=== PATIENT | female | born 1975 | race Caucasian/White ===

== ENCOUNTER 2021-10-18 11:07 | Inpatient (IN) | payer BC, SELFPAY ==
[2021-10-18] VITALS (41 sets, daily range): BP systolic 130–196; BP diastolic 66–117; PULSE 85–118; RESP 12–35; TEMP 36.6–37.1; O2SAT 94–100
--- NOTE | 2021-10-18 11:09 | ED_ITS ---
HPI - General Adult General: Chief complaint: Nausea/Vomiting/Diarrhea Stated complaint: HYPERGLYCEMIA Time Seen by Provider: 10/18/21 11:08 History of Present Illness: Ms. Higuera is a 46-year-old lady without significant past medical history who presents to the emergency department due to nausea and vomiting. She endorses generalized malaise starting approximately 1 week ago and about 5 days ago began having recurrent episodes of nausea and vomiting. Initially emesis was normal in appearance however is now become more just stomach acid and last night she did have small amounts of blood. Additionally she notes a few episodes of loose stools. Mild generalized abdominal discomfort. She has generalized weakness, subjective fevers, chills. Overall course of symptoms has worsened. Intensity is moderate to severe with generalized weakness. No other specific changes in health, exacerbating, or alleviating factors identified. Onset (ago): day(s) Severity: moderate Quality: burning and aching Pain Consistency: constant Exacerbating factors: eating Associated symptoms: Reports decreased appetite, fevers/chills, nausea, vomiting and weakness Review of Systems General: Reports: 10 or more systems reviewed and unremarkable except in HPI and below GI: Reports: nausea and vomiting [facility] ED PFSH: Medical History No significant past medical history Surgical History No significant past surgical history Family History (Updated 10/18/21 @ 14:00 by Filipe Delgado MD) Father Diabetes Mother Diabetes Social History Smoking and tobacco status: never smoked Physical Exam Const: COMMON NORMALS: alert GENERAL APPEARANCE: cooperative and well developed HENMT: COMMON NORMALS: normocephalic and atraumatic HEAD & SCALP: normocephalic and atraumatic OTHER: Dry mucous membranes Eye: COMMON NORMALS: conjunctivae normal CONJUNCTIVA: Yes conjunctivae normal SCLERA: sclerae normal Neck/C-Spine: COMMON NORMALS: supple GENERAL: Yes trachea midline Resp: COMMON NORMALS: normal respiratory effort and clear to auscultation bilaterally EFFORT & INSPECTION: Yes able to speak in complete sentences AUSCULTATION: clear to auscultation bilaterally Cardio: COMMON NORMALS: regular rhythm RATE: tachycardic RHYTHM: regular rhythm GI: COMMON NORMALS: Soft to palpation PALPATION: Yes Soft to palpation, Yes Tenderness to palpation present (GI), No Guarding due to palpation present (GI) and No Rigid due to palpation PERCUSSION: normal to percussion Extremity: GENERAL: Yes normal exam except as noted and No edema Neuro: COMMON NORMALS: moves all extremities SENSORIUM/ORIENTATION: Yes alert and No Orientation impaired Psych: COMMON NORMALS: mental status grossly normal and Normal thought process present THOUGHT PROCESS: Normal thought process present Course ED course: - Patient was seen and evaluated by me at bedside - Patient placed on cardiac monitors, IV access obtained - Initial evaluation notable for exam as above, somewhat ill-appearing - Labs and xrays personally interpreted by me. EKGs showing sinus tachycardia with nonspecific ST segment abnormalities. - Fluids and antiemetic given - Labs notable for leukocytosis, normal hemoglobin. Metabolic panel consistent with DKA. Additional fluids, potassium, and insulin drip ordered. - Imaging notable for no lobar consolidation or pneumothorax on chest x-ray. No acute inflammatory or obstructive pathology identified on CT abdomen pelvis. - Upon serial reexamination after treatment the patient was mildly improved - Based on patient history, evaluation, and testing as interpreted the most likely cause of the patient's condition is new onset DKA with evidence of dehydration with nausea and vomiting - The results of ED evaluation were discussed with the patient including plan for admission due to requirement for level of care not available if discharged to prevent significant worsening/deterioration. - Admitting service was contacted and Dr Delgado with the hospitalist service agreed to admit the patient - Patient was admitted without further deterioration or significant events. Note: Click bubbles or prepopulated vasquez in note writing are used for assistance with data collection and billing and are inherently more limited than narrative and other text portions of this note. Please use narrative for additional clinical history and defer to narrative/free test for any case of contradictory information. If information appears in only free text or click bubble it should be considered present or absent as reported. Please contact note telegraphic typewriter repairer for clarifications of clinical information or contradictory information. MDM is a brief summary, contradictory or erroneous seeming information should be clarified and full note should be reviewed. Vital Signs: Vital signs: Vital Signs Temperature 98.6 F 10/21/21 12:34 Pulse Rate 80 10/21/21 12:34 Respiratory Rate 16 10/21/21 12:34 Blood Pressure 129/80 10/21/21 12:34 Pulse Oximetry 97 10/21/21 12:34 MDM - General Adult Medical Decision Making 46-year-old lady nausea and vomiting found to have new set onset DKA. Admitted on insulin drip for further management. Medical Records I reviewed the patient's medical records. Lab Data I reviewed the patient's lab results. : 10/21/21 04:34 10/21/21 04:34 Radiology Impressions Abdomen/Pelvis CT 10/18/21 12:10 IMPRESSION: 1. No acute findings. 2. Sigmoid colon diverticulosis 3. A few small calcified gallstones Chest X-Ray 10/18/21 12:10 IMPRESSION: No acute findings. Abdomen Ultrasound 10/18/21 14:51 IMPRESSION: 1. Mild hepatomegaly. 2. Small sludge balls in the gallbladder 3. Otherwise No acute findings. Laboratory Results WBC 22.0 10^3/uL (4.0-10.0) H 10/18/21 11:28 RBC 5.00 10^6/uL (4.1-5.3) 10/18/21 11:28 Hgb 14.2 g/dL (11.5-15.3) 10/18/21 11:28 Hct 41.4 % (37.0-47.0) 10/18/21 11:28 MCV 82.8 fl (81-99) 10/18/21 11:28 MCH 28.4 pg (28.0-34.0) 10/18/21 11:28 MCHC 34.3 g/dL (30.0-36.0) 10/18/21 11:28 RDW 12.3 % (12.1-15.1) 10/18/21 11:28 Plt Count 421 10^3/cmm (130-400) H 10/18/21 11:28 MPV 11.2 fL (7.4-10.4) H 10/18/21 11:28 Neut % (Auto) 84.0 % 10/18/21 11:28 Lymph % (Auto) 9.2 % 10/18/21 11:28 Stan[place] % (Auto) 5.0 % 10/18/21 11:28 Eos % (Auto) 0.0 % 10/18/21 11:28 Baso % (Auto) 0.4 % 10/18/21 11:28 Neut # (Auto) 18.48 10^3/uL (1.8-7.7) H 10/18/21 11:28 Lymph # (Auto) 2.0 10^3/uL (0.8-4.8) 10/18/21 11:28 [place] # (Auto) 1.1 10^3/uL (0.2-0.9) H 10/18/21 11:28 Eos # (Auto) 0.0 10^3/uL (0.0-0.8) 10/18/21 11:28 Baso # (Auto) 0.1 10^3/uL (0.0-0.1) 10/18/21 11:28 Nucleated RBC % (auto) 0 % 10/18/21 11:28 Nucleated RBCs # 0.0 /100WBC 10/18/21 11:28 Specimen Type Arterial 10/18/21 12:14 Sample Site Brachial, left 10/18/21 12:14 ABG pH 7.30 (7.35-7.45) L 10/18/21 12:14 ABG pCO2 22.9 mmHg (35-45) L 10/18/21 12:14 ABG pO2 94.4 mmHg (80.0-100.0) 10/18/21 12:14 ABG HCO3 11.3 mmol/L (22-26) L 10/18/21 12:14 ABG Base Excess -13.0 mmol/L (-2.0-2.0) L 10/18/21 12:14 Jose Test Pos 10/18/21 12:14 Hematocrit 41.9 % (37-47) 10/18/21 12:14 O2 Delivery Device Room air 10/18/21 12:14 FiO2 21.0 % 10/18/21 12:14 Punch Press Setter ID Cak 10/18/21 12:14 Sodium 130 mmol/L (136-145) L 10/18/21 11:28 Potassium 3.7 mmol/L (3.5-5.1) 10/18/21 11:28 Chloride 90 mmol/L (98-107) L 10/18/21 11:28 Carbon Dioxide 12 mmol/L (22-29) L 10/18/21 11:28 Anion Gap 31.7 (5-19) H 10/18/21 11:28 BUN 23 mg/dL (6-20) H 10/18/21 11:28 Creatinine 0.7 mg/dL (0.5-0.9) 10/18/21 11:28 GFR Calculation 90.9 mL/min (90-130) 10/18/21 11:28 Glucose 482 mg/dL (65-115) H 10/18/21 11:28 POC Glucose 496 mg/dL (70-110) H 10/18/21 11:32 Calculated Osmolality 295 mOsm/kg (285-295) 10/18/21 11:28 Lactate 2.1 mmol/L (0.5-2.2) 10/18/21 11:28 Calcium 9.5 mg/dL (8.5-10.5) 10/18/21 11:28 Magnesium 1.8 mg/dL (1.7-2.3) 10/18/21 11:28 Total Bilirubin 0.3 mg/dL (0.15-1.2) 10/18/21 11:28 AST 16 U/L (0-32) 10/18/21 11:28 ALT 22 U/L (0-33) 10/18/21 11:28 Alkaline Phosphatase 136 IU/L (35-105) H 10/18/21 11:28 Total Protein 7.9 g/dL (6.6-8.7) 10/18/21 11:28 Albumin 3.5 g/dL (3.5-5.2) 10/18/21 11:28 Globulin 4.4 g/dL (1.3-4.6) 10/18/21 11:28 Lipase 43 U/L (13-60) 10/18/21 11:28 HCG, Qual Negative (Negative) 10/18/21 13:00 Urine Color Yellow (Yellow) 10/18/21 13:00 Urine Appearance Sl hazy (CLEAR) 10/18/21 13:00 Urine pH 5 (5-7) 10/18/21 13:00 Ur Specific [place] 1.020 (1.005-1.030) 10/18/21 13:00 Urine Protein Neg (Negative) 10/18/21 13:00 Urine Glucose (UA) 4+ (Normal) H 10/18/21 13:00 Urine Ketones 3+ (Negative) H 10/18/21 13:00 Urine Blood 3+ (Negative) H 10/18/21 13:00 Urine Nitrate Negative (Negative) 10/18/21 13:00 Urine Bilirubin Neg (Negative) 10/18/21 13:00 Urine Urobilinogen Norm mg/dL (Negative) 10/18/21 13:00 Ur Leukocyte Esterase Negative (Negative) 10/18/21 13:00 Urine RBC 0-4 /hpf (0-2) H 10/18/21 13:00 Urine WBC 10-15 /hpf (0-5) H 10/18/21 13:00 Ur Squamous Epith Cells 0-4 /hpf (0-5) H 10/18/21 13:00 Amorphous Sediment Not Reportable 10/18/21 13:00 Urine Bacteria 2+ /hpf (NONE) H 10/18/21 13:00 Serum Ketones Positive (Negative) H 10/18/21 11:28 Critical Care Time Critical Care Time: Critical Care Time: Yes Total Critical Care Time: 35 Attestation: Due to a high probability of clinically significant, possibly life threatening deterioration, the patient required my highest level of attention and preparedness to intervene emergently and I personally spent this critical care time directly and personally managing the patient. This critical care time included obtaining a history; examining the patient; pulse oximetry; ordering and review of laboratory and imaging studies; arranging urgent treatment with development of a management plan; evaluation of patient's response to treatment; frequent reassessment; and, discussions with other providers as applicable. It was exclusive of separately billable procedures. Primary system involved is endocrine Discharge Plan Discharge Patient Disposition: Admitted As Inpatient Admit Provider: Filipe Delgado Clinical Impression: Diabetes mellitus, new onset, DKA (diabetic ketoacidosis) Condition: Stable Discharge Diet: Diabetic Discharge Activity: Resume usual activity Coding Level of Care Code ED Podiatrist for [facility] Fwd Exam Comprehensive
[2021-10-18 11:36] LABS: Glucose Point of Care 496 mg/dL (70-110)
[2021-10-18 11:40] LABS: Basophils # 0.1 10^3/uL (0.0-0.1); Basophils % 0.4 %; Hematocrit 41.4 % (37.0-47.0); Hemoglobin 14.2 g/dL (11.5-15.3); Lymphocytes % 9.2 %; Mean Corpuscular HGB Conc 34.3 g/dL (30.0-36.0); Mean Corpuscular Hemoglobin 28.4 pg (28.0-34.0); Mean Corpuscular Volume 82.8 fl (81-99); Mean Platelet Volume 11.2 fL (7.4-10.4); Monocytes # 1.1 10^3/uL (0.2-0.9); Neutrophils # 18.48 10^3/uL (1.8-7.7); Nucleated Red Blood Cells % 0 %; Platelet Count 421 10^3/cmm (130-400); Red Cell Distribution Width 12.3 % (12.1-15.1)
[2021-10-18 11:52] LABS: Ketone (Acetest) Serum Positive (Negative)
[2021-10-18 11:54] LABS: Lactate (Lactic Acid level) 2.1 mmol/L (0.5-2.2)
[2021-10-18] MEDS: sodium chloride 0.9% 1,000 ML 999 ML IV (11:56)
[2021-10-18 11:59] LABS: Alanine Aminotransferase 22 U/L (0-33); Albumin Level 3.5 g/dL (3.5-5.2); Alkaline Phosphatase 136 IU/L (35-105); Anion Gap 31.7 (5-19); Aspartate Amino Transferase 16 U/L (0-32); Blood Urea Nitrogen 23 mg/dL (6-20); Calcium 9.5 mg/dL (8.5-10.5); Carbon Dioxide 12 mmol/L (22-29); Chloride 90 mmol/L (98-107); Globulin 4.4 g/dL (1.3-4.6); Glomerular Filtration Rate 90.9 mL/min (90-130); Glucose 482 mg/dL (65-115); Lipase 43 U/L (13-60); Osmolality Calculated 295 mOsm/kg (285-295); Potassium 3.7 mmol/L (3.5-5.1); Sodium 130 mmol/L (136-145); Total Bilirubin 0.3 mg/dL (0.15-1.2); Total Protein 7.9 g/dL (6.6-8.7)
--- NOTE | 2021-10-18 12:10 | XRR_ITS ---
PROCEDURE INFORMATION: Exam: XR Chest Exam date and time: 10/18/2021 12:25 PM Age: 46 years old Clinical indication: Pain; Chest pressure; Additional info: Chest discomfort TECHNIQUE: Imaging protocol: Radiologic exam of the chest. Views: 1 view. COMPARISON: No relevant prior studies available. FINDINGS: Lungs: Unremarkable. No consolidation. Pleural spaces: Unremarkable. No pleural effusion. No pneumothorax. Heart/Mediastinum: Unremarkable. No cardiomegaly. Bones/joints: Unremarkable. XR/XR chest 1V portable [id number] IMPRESSION: No acute findings.
--- NOTE | 2021-10-18 12:10 | CTR_ITS ---
PROCEDURE INFORMATION: Exam: CT Abdomen And Pelvis Without Contrast Exam date and time: 10/18/2021 12:36 PM Age: 46 years old Clinical indication: Nausea and vomiting; Abdominal pain; Generalized; Additional info: N/v, abd pain TECHNIQUE: Imaging protocol: Computed tomography of the abdomen and pelvis without contrast. Radiation optimization: All CT scans at this facility use at least one of these dose optimization techniques: automated exposure control; mA and/or kV adjustment per patient size (includes targeted exams where dose is matched to clinical indication); or iterative reconstruction. COMPARISON: CR (CHEST, ) 10/18/2021 12:25 PM RADIATION DOSE METRICS: Total DLP (mGy-cm): 1832.65 FINDINGS: Liver: Normal. No mass. Gallbladder and bile ducts: Several small calcified stones. No ductal dilation. Pancreas: Normal. No ductal dilation. Spleen: Normal. No splenomegaly. Adrenal glands: Normal. No mass. Kidneys and ureters: Normal. No hydronephrosis. Stomach and bowel: There is scattered sigmoid colon diverticulosis without diverticulitis No obstruction. No mucosal thickening. Appendix: No evidence of appendicitis. Intraperitoneal space: Unremarkable. No free air. No significant fluid collection. Vasculature: Unremarkable. No abdominal aortic aneurysm. Lymph nodes: Unremarkable. No enlarged lymph nodes. Urinary bladder: Unremarkable as visualized. Reproductive: Unremarkable as visualized. Bones/joints: Unremarkable. No acute fracture. Soft tissues: Unremarkable. CT/CT abdomen pelvis con [id number] IMPRESSION: 1. No acute findings. 2. Sigmoid colon diverticulosis 3. A few small calcified gallstones
[2021-10-18 12:25] LABS: ABG PCO2 22.9 mmHg (35-45); Arterial Blood Gas Hematocrit 41.9 % (37-47); Blood Gas Allen Test Pos; Blood Gas Operator Identificat CAK; Blood Gas Sample Site Brachial, left; Blood Gas Sample Type Arterial; HCO3 ABG 11.3 mmol/L (22-26); Oxygen Device ROOM AIR; PO2 ABG 94.4 mmHg (80.0-100.0)
[2021-10-18] MEDS: potassium chloride oral liq 20 mEq/15 mL UDC 40 MEQ PO (12:57)
[2021-10-18 13:17] LABS: HCG Qualitative Urine. Negative (Negative)
[2021-10-18 13:27] LABS: Bilirubin Urine Neg (Negative); Blood Urine 3+ (Negative); Glucose Urine UA 4+ (Normal); Ketones Urine 3+ (Negative); Nitrate Urine Negative (Negative); Protein Urine Neg (Negative); Urine Appearance SL Hazy (CLEAR); Urine Color Yellow (Yellow); pH Urine 5 (5-7)
[2021-10-18 13:28] LABS: Add Urine Culture? Yes; Add Urine Microscopic? YES; Bacteria Urine 2+ /hpf; Leukocyte Esterase Urine Negative (Negative); RBC Urine 0-4 /hpf (0-2); Squamous Epithelial Cell Urine 0-4 /hpf (0-5); Urobilinogen Urine Norm (Negative)
[2021-10-18 13:42] LABS: Magnesium 1.8 mg/dL (1.7-2.3)
--- NOTE | 2021-10-18 13:56 | PM.HP ---
Providers/Chief Complaint Chief Complaint: HYPERGLYCEMIA History of Present Illness Althea Higuera is a 46 year old female with no significant past medical history, has received both COVID vaccines, who presents [facility] due to fatigue, malaise, nausea, vomiting, abdominal pain for the last week. Patient tells me that about a week ago she started having nausea, vomiting, decreased appetite, abdominal pain. No diarrhea. No dysuria. No hematuria, no chest pain, shortness of breath, no fevers. No cough. Her nausea, vomiting persisted, she is not able to keep any solids or liquids down. She does not have a history of diabetes. No significant past medical history, no significant surgical history, no history of smoking, no history of drug use. In the emergency room she was found to have positive ketones, elevated anion gap 31.7, blood sugars 496, pH 7.3, diagnosed with diabetic ketoacidosis, received potassium replacement, fluid therapy, started on insulin drip, hospitalist team was called for admission for diabetic ketoacidosis. So far UA no evidence of UTI, chest x-ray no focal pneumonia. Troponin series, serum triglycerides, TSH, A1c has been ordered currently alert oriented x3, following all commands, no nausea currently, kusmmal breathing Review of Systems Const: Denies: fever(s) or chills Eyes: Denies: change in vision ENMT: Denies: nasal congestion Card: Denies: chest pain or palpitations Resp: Denies: dyspnea, productive cough, non-productive cough or wheezing GI: Reports: abdominal pain, nausea and vomiting; Denies: diarrhea, constipation, hematochezia or melena : Denies: flank pain, dysuria or urinary frequency Musc: Denies: neck pain or back pain Skin/Breast: Denies: rash Neuro: Denies: headache(s), dizziness or vertigo Endo: Denies: polydipsia Medications/Allergies Home Medications Medication Instructions Recorded Confirmed Last Taken Type ondansetron HCl 4 mg tablet 4 mg PO TID PRN 10/18/21 10/18/21 10/18/21 History Allergies Allergy/AdvReac Type Severity Reaction Status Date / Time No Known Allergies Allergy Verified 10/18/21 13:14 PFSH Acute PFSH: Medical History No significant past medical history Surgical History No significant past surgical history Family History (Updated 10/18/21 @ 14:00 by Filipe Delgado MD) Father Diabetes Mother Diabetes Social History Smoking and tobacco status: never smoked Vitals/I&O/Wt Last Vital Signs Temp 98.1 F 10/18/21 11:23 Pulse 105 H 10/18/21 11:23 Resp 18 10/18/21 11:23 BP 174/115 10/18/21 11:23 Pulse Ox 98 10/18/21 11:23 Weight last 48 hrs Weight 83.915 kg Physical Exam Const: COMMON NORMALS: no acute distress and patient oriented x3 HENMT: COMMON NORMALS: normocephalic HEAD & SCALP: normocephalic Eye: COMMON NORMALS: Equal, round and reactive pupils present and EOMs intact bilaterally Neck/C-Spine: COMMON NORMALS: no JVD Resp: COMMON NORMALS: normal respiratory effort, No retractions, No use of accessory muscles and clear to auscultation bilaterally AUSCULTATION: clear to auscultation bilaterally Cardio: COMMON NORMALS: no JVD, regular rate, regular rhythm, S1 normal heart sound present and S2 normal heart sound present RATE: regular rate RHYTHM: regular rhythm HEART SOUNDS: S1 normal heart sound present and S2 normal heart sound present GI: COMMON NORMALS: Normal to inspection, nondistended, normoactive bowel sounds present, Soft to palpation, non-tender, No hepatosplenomegaly present, no masses and no bruits PALPATION: Yes Soft to palpation and Yes No hepatosplenomegaly present Extremity: COMMON NORMALS: capillary refill normal, no clubbing, cyanosis or edema, no calf tenderness and no pedal edema Neuro: COMMON NORMALS: patient oriented x3, CN's II-XII intact bilaterally, moves all extremities and no focal motor deficits Psych: COMMON NORMALS: mental status grossly normal Data : 10/18/21 11:28 10/18/21 11:28 A&P Assessment and plan (1) DKA (diabetic ketoacidosis): Status: Acute Plan Diabetic ketoacidosis -Check A1c -DKA protocol -Maintain potassium greater than 4.5, -If blood sugar less than 200, start D5 normal saline -Start IV fluids normal saline with 40 KCl at 125 cc an hour -Monitor for anion gap less than 12 -Blood sugars every hour -Insulin drip -BMP, mag, Phos every 4 hours -TSH, triglycerides, troponin series pending -Right upper quadrant ultrasound pending -N.p.o. -Lovenox for DVT prophylaxis -Full code Attestations Medical Necessity Statement*: Patient requires hospitalization, inpatient, greater than 2 midnights, for diabetic ketoacidosis Coding Level of Care Code Acute Ip Network Architect for [facility] Fw Diagnoses DKA (diabetic ketoacidosis) E11.10
[2021-10-18] MEDS: potassium chloride premix 100 ML 25 MEQ IV (14:12)
[2021-10-18] MEDS: insulin regular-human 250 UNIT in sodium chloride 0.9% 250 ML 9 UNIT IV (14:13)
[2021-10-18 14:46] LABS: Glucose Point of Care 369 mg/dL (70-110)
--- NOTE | 2021-10-18 14:51 | USR_ITS ---
PROCEDURE INFORMATION: Exam: US Abdomen, Limited; Right Upper Quadrant Exam date and time: 10/18/2021 3:07 PM Age: 46 years old Clinical indication: Nausea and vomiting; Additional info: Gallbladder TECHNIQUE: Imaging protocol: Real time ultrasound of the abdomen with image documentation. Limited exam focused on the right upper quadrant. COMPARISON: CT abdomen pelvis wo con [id number] 10/18/2021 12:36 PM FINDINGS: Liver: No masses. Liver span is 17 cm. Mild hepatomegaly Gallbladder: Small sludge ball is present. No gallstones. GB wall 2.4 mm Biliary ducts: Normal. No stones. 2.5 mm Pancreas: Visualized pancreas is unremarkable. Right kidney: Normal. No mass. No hydronephrosis. 13.4 cm x 7 cm x 5.8 cm US/US abdomen limited [id number] IMPRESSION: 1. Mild hepatomegaly. 2. Small sludge balls in the gallbladder 3. Otherwise No acute findings.
[2021-10-18 15:06] LABS: Glucose Point of Care 365 mg/dL (70-110)
[2021-10-18] MEDS: enoxaparin 40 mg/0.4 mL Syringe SUBCUT (15:39)
[2021-10-18] MEDS: pantoprazole 40 mg SDV IVP (15:40)
--- NOTE | 2021-10-18 15:53 | ECG_ITS ---
[facility] Test Date: 2021-10-18 Pat Name: Althea Higuera Department: Room: [facility] Gender: Female Surveillance System Monitor: : 1975 Requested By: Filipe Delgado Order Number: [id number] Ronni MD: Berny Emmanuel M.D. Measurements Intervals [place] Rate: 101 P: 26 AR: 147 QRS: 2 QRSD: 88 T: 16 QT: 321 QTc: 417 Interpretive Statements SINUS TACHYCARDIA ABNORMAL RHYTHM ECG No previous ECG available for comparison Electronically Signed On 10-19-2021 8:38:02 CDT by Berny Emmanuel M.D. [id number]
[2021-10-18 16:11] LABS: Glucose Point of Care 262 mg/dL (70-110)
[2021-10-18 16:50] LABS: Glucose Point of Care 210 mg/dL (70-110)
[2021-10-18] MEDS: cloNIDine 0.1 mg Tablet PO (17:52)
[2021-10-18] MEDS: dextrose 5%-ns + KCl 40 40 MEQ/1,000 ML BAG 125 MEQ IV (17:54)
[2021-10-18] MEDS: sodium chlor 0.9% + KCl 40 mEq 40 MEQ/1,000 ML BAG 125 MEQ IV (17:54)
[2021-10-18 17:56] LABS: Estmated Average Glucose 235; Hemoglobin A1C 9.8 % (4.0-6.0)
[2021-10-18 18:03] LABS: Troponin(5th) Baseline 10 ng/L (0-10)
[2021-10-18 18:10] LABS: Procalcitonin 0.55 ng/mL (0-0.5); Thyroid Stimulating Hormone 1.34 uIU/mL (0.27-4.20)
--- NOTE | 2021-10-18 18:15 | PC.NURSE ---
lab still pending from 1500 no result in computer at this time lab called
[2021-10-18 18:22] LABS: Blood Urea Nitrogen 18 mg/dL (6-20); Calcium 9.4 mg/dL (8.5-10.5); Carbon Dioxide 16 mmol/L (22-29); Chloride 100 mmol/L (98-107); Chol HDL Ratio 8.65 mg/dL (0.0-4.40); Cholesterol 147 mg/dL (0-200); Glomerular Filtration Rate 108.6 mL/min (90-130); Glucose 189 mg/dL (65-115); HDL Cholesterol 17 mg/dL (60-100); LDL Cholesterol Calculated 97 mg/dL (50-129); LDL HDL Ratio 5.71 RATIO (0.00-3.22); Magnesium 1.8 mg/dL (1.7-2.3); Osmolality Calculated 283 mOsm/kg (285-295); Phosphorus 1.7 mg/dL (2.5-4.5); Sodium 133 mmol/L (136-145); Triglycerides 164 mg/dL (0-150)
--- NOTE | 2021-10-18 18:25 | PC.NURSE ---
lab result now return on pt and notified doctor
[2021-10-18 18:48] LABS: Glucose Point of Care 201 mg/dL (70-110)
[2021-10-18 19:27] LABS: Anion Gap 24.9 (5-19); Blood Urea Nitrogen 18 mg/dL (6-20); Calcium 9.1 mg/dL (8.5-10.5); Carbon Dioxide 12 mmol/L (22-29); Chloride 100 mmol/L (98-107); Glomerular Filtration Rate 108.6 mL/min (90-130); Glucose 217 mg/dL (65-115); Magnesium 1.7 mg/dL (1.7-2.3); Osmolality Calculated 284 mOsm/kg (285-295); Phosphorus 1.6 mg/dL (2.5-4.5); Potassium 3.9 mmol/L (3.5-5.1); Sodium 133 mmol/L (136-145)
[2021-10-18 19:28] LABS: Troponin 5 2HR 10.31 ng/L (0-10)
[2021-10-18 19:39] LABS: Troponin 5 2HR Delta 0.31 ABS# (0-10)
--- NOTE | 2021-10-18 19:53 | ECG_ITS ---
[facility] Test Date: 2021-10-18 Pat Name: Althea Higuera Department: Room: [facility] Gender: Female Customer Contact Sales Associate: : 1975 Requested By: Filipe Delgado Order Number: [id number] Ronni MD: Berny Emmanuel M.D. Measurements Intervals [place] Rate: 102 P: 37 AL: 150 QRS: 13 QRSD: 87 T: 36 QT: 319 QTc: 417 Interpretive Statements SINUS TACHYCARDIA ABNORMAL RHYTHM ECG Compared to ECG 10/18/2021 16:32:07 No significant changes Electronically Signed On 10-19-2021 8:39:04 CDT by Berny Emmanuel M.D. [id number]
[2021-10-18] MEDS: lidocaine 1% 5 ML in potassium chloride premix 100 ML 25 ML IV (20:00)
[2021-10-18 20:16] LABS: Glucose Point of Care 183 mg/dL (70-110)
[2021-10-18] MEDS: acetaminophen 325 mg Tablet 650 MG PO (20:48)
[2021-10-18 21:30] LABS: Glucose Point of Care 147 mg/dL (70-110)
[2021-10-18 22:13] LABS: Glucose Point of Care 120 mg/dL (70-110)
[2021-10-18 23:39] LABS: Glucose Point of Care 105 mg/dL (70-110)
[2021-10-18 23:45] LABS: Anion Gap 18.3 (5-19); Blood Urea Nitrogen 16 mg/dL (6-20); Carbon Dioxide 15 mmol/L (22-29); Chloride 106 mmol/L (98-107); Glomerular Filtration Rate 108.6 mL/min (90-130); Glucose 114 mg/dL (65-115); Magnesium 1.8 mg/dL (1.7-2.3); Osmolality Calculated 282 mOsm/kg (285-295); Phosphorus 1.2 mg/dL (2.5-4.5); Potassium 4.3 mmol/L (3.5-5.1); Sodium 135 mmol/L (136-145); Troponin 5 6HR 10.22 ng/L (0-10); Troponin 5 6HR Delta 0.22 ng/L (0-12)
[2021-10-19] VITALS (28 sets, daily range): BP systolic 122–178; BP diastolic 69–116; PULSE 81–102; RESP 15–34; TEMP 36.8–37.2; O2SAT 87–100
[2021-10-19 00:36] LABS: Glucose Point of Care 125 mg/dL (70-110)
[2021-10-19 01:15] LABS: Glucose Point of Care 151 mg/dL (70-110)
[2021-10-19 02:05] LABS: Glucose Point of Care 144 mg/dL (70-110)
[2021-10-19 03:23] LABS: Basophils % 0.2 %; Eosinophils % 0.2 %; Hematocrit 35.1 % (37.0-47.0); Hemoglobin 12.2 g/dL (11.5-15.3); Lymphocytes # 1.8 10^3/uL (0.8-4.8); Lymphocytes % 11.5 %; Mean Corpuscular HGB Conc 34.8 g/dL (30.0-36.0); Mean Corpuscular Hemoglobin 28.5 pg (28.0-34.0); Mean Platelet Volume 10.8 fL (7.4-10.4); Monocytes # 1.3 10^3/uL (0.2-0.9); Monocytes % 8.2 %; Neutrophils # 12.66 10^3/uL (1.8-7.7); Nucleated Red Blood Cells % 0 %; Platelet Count 345 10^3/cmm (130-400); Red Blood Count 4.28 10^6/uL (4.1-5.3); Red Cell Distribution Width 12.4 % (12.1-15.1)
[2021-10-19 03:28] LABS: Glucose Point of Care 141 mg/dL (70-110)
[2021-10-19 03:44] LABS: Anion Gap 15.9 (5-19); Blood Urea Nitrogen 15 mg/dL (6-20); Calcium 9.3 mg/dL (8.5-10.5); Carbon Dioxide 17 mmol/L (22-29); Chloride 107 mmol/L (98-107); Glomerular Filtration Rate 173.4 mL/min (90-130); Glucose 156 mg/dL (65-115); Magnesium 1.8 mg/dL (1.7-2.3); Osmolality Calculated 286 mOsm/kg (285-295); Phosphorus 1.4 mg/dL (2.5-4.5); Potassium 3.9 mmol/L (3.5-5.1); Sodium 136 mmol/L (136-145)
[2021-10-19 04:12] LABS: Glucose Point of Care 137 mg/dL (70-110)
[2021-10-19] MEDS: pantoprazole 40 mg SDV IVP ×2 (04:15→15:50)
[2021-10-19 05:10] LABS: Glucose Point of Care 138 mg/dL (70-110)
[2021-10-19] MEDS: insulin glargine 100 units/1 mL 10 UNIT SUBCUT ×2 (05:10→17:50)
[2021-10-19 06:57] LABS: Anion Gap 17.1 (5-19); Blood Urea Nitrogen 12 mg/dL (6-20); Calcium 9.4 mg/dL (8.5-10.5); Carbon Dioxide 19 mmol/L (22-29); Chloride 104 mmol/L (98-107); Glomerular Filtration Rate 108.6 mL/min (90-130); Glucose 175 mg/dL (65-115); Magnesium 1.8 mg/dL (1.7-2.3); Osmolality Calculated 286 mOsm/kg (285-295); Phosphorus 1.4 mg/dL (2.5-4.5); Potassium 4.1 mmol/L (3.5-5.1); Sodium 136 mmol/L (136-145)
[2021-10-19 07:49] LABS: Glucose Point of Care 257 mg/dL (70-110)
[2021-10-19] MEDS: cloNIDine 0.1 mg Tablet PO ×2 (07:55→17:51)
[2021-10-19] MEDS: insulin lispro 100 unit/1 mL SUBCUT ×4 (07:56→21:07)
[2021-10-19] MEDS: potassium chloride ER 20 mEq Tablet PO (09:27)
[2021-10-19] MEDS: magnesium lactate 84 mg Tablet PO (09:27)
[2021-10-19] MEDS: lisinopril 20 mg Tablet PO (09:27)
[2021-10-19] MEDS: phosphorus 250 mg Tablet PO ×2 (09:27→17:51)
[2021-10-19 11:45] LABS: Acinetobacter baumannii Not Detected (NOT DETECT); Bacteroides fragilis Not Detected (NOT DETECT); CTX-M Detected (NOT DETECT); Citrobacter Not Detected (NOT DETECT); Cronobacter sakazakii Not Detected (NOT DETECT); Enterobacter cloacae complex Not Detected (NOT DETECT); Enterobacter non cloacae Not Detected (NOT DETECT); Fusobacterium necrophorum Not Detected (NOT DETECT); Fusobacterium nucleatum Not Detected (NOT DETECT); Haemophilus influenzae Not Detected (NOT DETECT); IMP Resistance Gene Not Detected (NOT DETECT); KPC Resistance Gene Not Detected (NOT DETECT); Klebsiella pneumoniae group Not Detected (NOT DETECT); Morganella morganii Not Detected (NOT DETECT); NDM Resistance Gene Not Detected (NOT DETECT); Neisseria meningitidis Not Detected (NOT DETECT); OXA Resistance Gene Not Detected (NOT DETECT); Pan Candida Not Detected (NOT DETECT); Pan Gram-Positive Not Detected (NOT DETECT); Proteus mirabilis Not Detected (NOT DETECT); Pseudomonas aeruginosa Not Detected (NOT DETECT); Salmonella Not Detected (NOT DETECT); Serratia Not Detected (NOT DETECT); Serratia marcescens Not Detected (NOT DETECT); Stenotrophomonas maltophilia Not Detected (NOT DETECT); VIM Resistance Gene Not Detected (NOT DETECT)
[2021-10-19 12:09] LABS: Glucose Point of Care 280 mg/dL (70-110)
--- NOTE | 2021-10-19 14:20 | PM.PN ---
Subjective Subjective: Patient was seen this morning, she is sitting up in a chair, she tells me she feels a lot better, still had an episode of nausea this morning, no fevers, no chills Vitals/I&O/Wt Last Vital Signs Temp 98.3 F 10/19/21 04:00 Pulse 97 10/19/21 13:00 Resp 20 H 10/19/21 13:00 BP 143/88 10/19/21 12:00 Pulse Ox 87 L 10/19/21 13:00 10/18/21 10/19/21 10/19/21 22:59 06:59 14:59 Intake Total 1140.940 / 1140.940 129.834 / 1134.506 6610 / 1705 Output Total 525 / 525 850 / 1375 1550 / 1550 Balance 615.940 / 615.940 -720.166 / -104.226 155 / 155 Weight last 48 hrs Weight 83.915 kg Physical Exam Const: COMMON NORMALS: no acute distress and patient oriented x3 Resp: COMMON NORMALS: normal respiratory effort, No retractions, No use of accessory muscles and clear to auscultation bilaterally AUSCULTATION: clear to auscultation bilaterally Cardio: COMMON NORMALS: regular rate, regular rhythm, S1 normal heart sound present and S2 normal heart sound present RATE: regular rate RHYTHM: regular rhythm HEART SOUNDS: S1 normal heart sound present and S2 normal heart sound present GI: COMMON NORMALS: Normal to inspection, nondistended, normoactive bowel sounds present, Soft to palpation and non-tender PALPATION: Yes Soft to palpation Extremity: COMMON NORMALS: no pedal edema Neuro: COMMON NORMALS: patient oriented x3 Psych: COMMON NORMALS: mental status grossly normal Data : 10/19/21 03:00 10/19/21 06:34 Micro: Microbiology 10/18/21 15:58 Blood Culture - Preliminary Blood Escherichia coli 10/18/21 13:00 Urine Culture - Preliminary Urine,Clean Catch Gram Negative Rods 10/18/21 15:55 Blood Culture - Preliminary Blood SPECIMEN COLLECTED A&P Assessment and plan (1) E. coli UTI: Status: Acute (2) E. coli bacteremia: Status: Acute (3) DKA (diabetic ketoacidosis): Status: Acute Plan Diabetic ketoacidosis, resolved -Check A1c 9.8 -DKA protocol, resolved -Lantus 10 units twice daily - low-dose sliding scale -Consult dietary -Monitor blood sugars closely -Replace electrolytes -Blood culture 1 positive E. coli, with resistant features, urine cultures positive for gram-negative's, start Primaxin -Hypertensive, start lisinopril, clonidine -Diabetic diet -Lovenox for DVT prophylaxis -Full code Attestations Medical Necessity Statement*: Patient requires hospitalization for diabetic ketoacidosis, E. coli bacteremia, E. coli UTI, electrolyte abnormalities, critical care time spent over 25 minutes Coding Level of Care Code Acute [employer] Advanced Operator Maintainer for [facility] Fwd Diagnoses E. coli UTI N39.0; B96.20 E. coli bacteremia R78.81; B96.20 DKA (diabetic ketoacidosis) E11.10
[2021-10-19] MEDS: enoxaparin 40 mg/0.4 mL Syringe SUBCUT (15:50)
[2021-10-19 17:46] LABS: Glucose Point of Care 232 mg/dL (70-110)
--- NOTE | 2021-10-19 18:32 | PC.NURSE ---
instructed pt giving insulin injections and practice with willard and renate,, gave own insulin this pm after drawing up appropriate amount
[2021-10-19 21:09] LABS: Glucose Point of Care 209 mg/dL (70-110)
[2021-10-20] VITALS (8 sets, daily range): BP systolic 149–177; BP diastolic 67–95; PULSE 76–105; RESP 18–33; TEMP 36.6–37.2; O2SAT 95–98
[2021-10-20] MEDS: pantoprazole 40 mg SDV IVP (03:17)
[2021-10-20 05:54] LABS: Basophils # 0.1 10^3/uL (0.0-0.1); Basophils % 0.5 %; Eosinophils # 0.1 10^3/uL (0.0-0.8); Eosinophils % 0.6 %; Hematocrit 35.8 % (37.0-47.0); Hemoglobin 12.5 g/dL (11.5-15.3); Lymphocytes # 2.3 10^3/uL (0.8-4.8); Lymphocytes % 17.8 %; Mean Corpuscular HGB Conc 34.9 g/dL (30.0-36.0); Mean Corpuscular Hemoglobin 28.8 pg (28.0-34.0); Mean Corpuscular Volume 82.5 fl (81-99); Mean Platelet Volume 10.8 fL (7.4-10.4); Monocytes # 1.1 10^3/uL (0.2-0.9); Monocytes % 8.6 %; Neutrophils # 9.28 10^3/uL (1.8-7.7); Neutrophils % 71.5 %; Nucleated Red Blood Cells % 0 %; Platelet Count 367 10^3/cmm (130-400); Red Blood Count 4.34 10^6/uL (4.1-5.3); Red Cell Distribution Width 12.4 % (12.1-15.1)
[2021-10-20] MEDS: insulin glargine 100 units/1 mL 10 UNIT SUBCUT ×2 (06:07→17:35)
[2021-10-20 06:17] LABS: Alanine Aminotransferase 38 U/L (0-33); Albumin Level 2.8 g/dL (3.5-5.2); Alkaline Phosphatase 96 IU/L (35-105); Anion Gap 18.6 (5-19); Aspartate Amino Transferase 28 U/L (0-32); Blood Urea Nitrogen 10 mg/dL (6-20); C Reactive Protein 72.1 mg/L (0.0-4.9); Carbon Dioxide 19 mmol/L (22-29); Chloride 101 mmol/L (98-107); Globulin 3.8 g/dL (1.3-4.6); Glomerular Filtration Rate 173.4 mL/min (90-130); Glucose 210 mg/dL (65-115); Magnesium 1.6 mg/dL (1.7-2.3); Osmolality Calculated 285 mOsm/kg (285-295); Phosphorus 3.2 mg/dL (2.5-4.5); Potassium 3.6 mmol/L (3.5-5.1); Sodium 135 mmol/L (136-145); Total Bilirubin 0.3 mg/dL (0.15-1.2); Total Protein 6.6 g/dL (6.6-8.7)
[2021-10-20 06:37] LABS: Glucose Point of Care 211 mg/dL (70-110)
[2021-10-20 08:05] LABS: Glucose Point of Care 201 mg/dL (70-110)
[2021-10-20] MEDS: insulin lispro 100 unit/1 mL SUBCUT ×4 (08:09→22:01)
[2021-10-20] MEDS: magnesium sulfate premix 4 GM/100 ML PREMIX IV (08:43)
[2021-10-20] MEDS: cloNIDine 0.1 mg Tablet PO ×2 (08:44→17:35)
[2021-10-20] MEDS: amlodipine 10 mg Tablet PO (08:44)
[2021-10-20] MEDS: lisinopril 20 mg Tablet PO (08:44)
--- NOTE | 2021-10-20 09:50 | PC.CHAP ---
Pastoral Care Encounter/Spiritual Assessment Type of Contact [] Declined contact lens curve grinder visit [] Patient/Family/Request visit [] Outpatient visit [] Follow-up visit [] Physician referral [] Code/Alert [x] Routine visit [] Staff referral [] Actively dying [] Patient sleeping [] Family support [] [] Out of room [] Palliative care [] [] Receiving care in room [] Pre-surgical visit [] Trauma [] Long length of stay [x] ICU visit [x] Other: setting in chair Relational/Emotional Strength [] Patient feels connected with others/family/visitors/staff [] Distress [] Loneliness/isolation [] Abandonment Spirituality of Patient [] Person of Kiki [] Attends Cheondoism of their Kiki [] Believes in Prayer [] Reads Bible or Hinduism materials [] There are Spiritual issues to be addressed Rubber Chemist Interventions [x] Prayer [x] Active listening [x] Non-anxious presence [x] Spiritual/emotional support [] Crisis/trauma care [] Spiritual counseling [] Bereavement support [] Provided bereavement packet [] Provided Bible/devotional materials [] Provided toy/stuffed animal, coloring book to patient or family member [] Provided Communion [] Anointing/[place] [] Salvation [x] Completed spiritual assessment [] Other: Impact on Illness or Injury [] Angry [] Fearful [] Anxious [] Often cries [] Exhaustion [] Unable to work [] Unable to attend sabianist [] Unable to walk/stand [] Unable to read [] Unable to drive [] Unable to eat/drink [] Unable to sleep [] Unable to be with family [] Patient intubated [] Other: Summary enjoyed a little breakfast... finding the staff very caring and efficient Time spent with patient 10 min
--- NOTE | 2021-10-20 11:17 | PM.PN ---
Subjective Subjective: Patient was seen this morning, no fevers, chills, nausea, vomiting, she feels a lot better, remains hypertensive Vitals/I&O/Wt Last Vital Signs Temp 98.9 F 10/20/21 08:00 Pulse 80 10/20/21 08:00 Resp 28 H 10/20/21 08:00 BP 177/95 10/20/21 08:00 Pulse Ox 95 10/20/21 08:00 10/19/21 10/20/21 10/20/21 22:59 06:59 14:59 Intake Total 1030 / 3035 100 / 3135 100 / 100 Output Total 1000 / 2550 1000 / 3550 Balance 30 / 485 -900 / -415 100 / 100 Weight last 48 hrs Weight 83.915 kg Physical Exam Const: COMMON NORMALS: no acute distress and patient oriented x3 Neck/C-Spine: COMMON NORMALS: no JVD Resp: COMMON NORMALS: normal respiratory effort, No retractions, No use of accessory muscles and clear to auscultation bilaterally AUSCULTATION: clear to auscultation bilaterally Cardio: COMMON NORMALS: no JVD, regular rate, regular rhythm, S1 normal heart sound present and S2 normal heart sound present RATE: regular rate RHYTHM: regular rhythm HEART SOUNDS: S1 normal heart sound present and S2 normal heart sound present GI: COMMON NORMALS: Normal to inspection, nondistended, normoactive bowel sounds present, Soft to palpation, non-tender and No hepatosplenomegaly present PALPATION: Yes Soft to palpation and Yes No hepatosplenomegaly present Extremity: COMMON NORMALS: no pedal edema Neuro: COMMON NORMALS: patient oriented x3 Psych: COMMON NORMALS: mental status grossly normal Data : 10/20/21 05:25 10/20/21 05:25 Micro: Microbiology 10/18/21 13:00 Urine Culture - Final Urine,Clean Catch Escherichia coli esbl 10/20/21 05:25 Blood Culture - Preliminary Blood SPECIMEN COLLECTED 10/20/21 05:20 Blood Culture - Preliminary Blood SPECIMEN COLLECTED 10/18/21 15:55 Blood Culture - Preliminary Blood NEGATIVE TO DATE 10/18/21 15:58 Blood Culture - Preliminary Blood Escherichia coli A&P Assessment and plan (1) E. coli UTI: Status: Acute (2) E. coli bacteremia: Status: Acute (3) DKA (diabetic ketoacidosis): Status: Acute Plan Diabetic ketoacidosis, resolved -Check A1c 9.8 -DKA protocol, resolved -Lantus 10 units twice daily - low-dose sliding scale -Consult dietary -Monitor blood sugars closely -Replace electrolytes -Blood culture 1 positive E. coli, with resistant features, urine cultures positive for gram-negative's, continue Primaxin, follow repeat blood cultures -Hypertensive, start lisinopril, clonidine, add Norvasc -Diabetic diet -Lovenox for DVT prophylaxis -Full code Moved to general medical floors, plan on discharge in the next 24 hours Attestations Medical Necessity Statement*: Patient requires hospitalization for diabetic ketoacidosis resolved, now with E. 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 coli UTI N39.0; B96.20 E. coli bacteremia R78.81; B96.20 DKA (diabetic ketoacidosis) E11.10
[2021-10-20 11:41] LABS: Glucose Point of Care 247 mg/dL (70-110)
[2021-10-20] MEDS: enoxaparin 40 mg/0.4 mL Syringe SUBCUT (14:45)
[2021-10-20 17:02] LABS: Glucose Point of Care 249 mg/dL (70-110)
[2021-10-20 20:48] LABS: Glucose Point of Care 222 mg/dL (70-110)
[2021-10-21] VITALS (8 sets, daily range): BP systolic 129–172; BP diastolic 62–93; PULSE 71–86; RESP 16–18; TEMP 36.8–37; O2SAT 94–98
[2021-10-21 05:14] LABS: Basophils # 0.1 10^3/uL (0.0-0.1); Basophils % 0.6 %; Eosinophils # 0.2 10^3/uL (0.0-0.8); Eosinophils % 1.4 %; Hematocrit 36.3 % (37.0-47.0); Hemoglobin 12.5 g/dL (11.5-15.3); Lymphocytes # 3.4 10^3/uL (0.8-4.8); Lymphocytes % 25.5 %; Mean Corpuscular HGB Conc 34.4 g/dL (30.0-36.0); Mean Corpuscular Hemoglobin 28.5 pg (28.0-34.0); Mean Corpuscular Volume 82.9 fl (81-99); Mean Platelet Volume 10.8 fL (7.4-10.4); Monocytes % 7.4 %; Neutrophils # 8.45 10^3/uL (1.8-7.7); Neutrophils % 63.7 %; Nucleated Red Blood Cells % 0 %; Platelet Count 395 10^3/cmm (130-400); Red Blood Count 4.38 10^6/uL (4.1-5.3); Red Cell Distribution Width 12.3 % (12.1-15.1); White Blood Count 13.3 10^3/uL (4.0-10.0)
[2021-10-21 05:47] LABS: Procalcitonin 0.22 ng/mL (0-0.5)
[2021-10-21 06:09] LABS: Alanine Aminotransferase 35 U/L (0-33); Albumin Level 3.1 g/dL (3.5-5.2); Alkaline Phosphatase 89 IU/L (35-105); Anion Gap 16.3 (5-19); Aspartate Amino Transferase 19 U/L (0-32); Blood Urea Nitrogen 11 mg/dL (6-20); C Reactive Protein 54.7 mg/L (0.0-4.9); Calcium 8.9 mg/dL (8.5-10.5); Carbon Dioxide 24 mmol/L (22-29); Chloride 100 mmol/L (98-107); Globulin 3.6 g/dL (1.3-4.6); Glucose 151 mg/dL (65-115); Magnesium 1.8 mg/dL (1.7-2.3); Osmolality Calculated 286 mOsm/kg (285-295); Phosphorus 3.8 mg/dL (2.5-4.5); Potassium 3.3 mmol/L (3.5-5.1); Sodium 137 mmol/L (136-145); Total Bilirubin 0.2 mg/dL (0.15-1.2); Total Protein 6.7 g/dL (6.6-8.7)
[2021-10-21] MEDS: insulin glargine 100 units/1 mL 10 UNIT SUBCUT (06:38)
[2021-10-21 06:43] LABS: Glucose Point of Care 161 mg/dL (70-110)
[2021-10-21] MEDS: insulin lispro 100 unit/1 mL SUBCUT (09:19)
[2021-10-21] MEDS: amlodipine 10 mg Tablet PO (09:22)
[2021-10-21] MEDS: cloNIDine 0.1 mg Tablet PO (09:22)
--- NOTE | 2021-10-21 11:29 | PM.DCS ---
Discharge Providers Date of Admission: 10/18/21 13:25 Date of Discharge: October 21, 2021 Attending Provider at Admission: Filipe Delgado MD Attending Provider at Discharge: Filipe Delgado MD Diagnoses at Discharge Discharge Diagnosis (1) E. coli UTI: Status: Acute (2) E. coli bacteremia: Status: Acute (3) DKA (diabetic ketoacidosis): Status: Acute Reason for Visit Reason for Visit: HYPERGLYCEMIA Hospital Course Hospital Course Althea Higuera is a 46 year old female with no significant past medical history, has received both COVID vaccines, who presents [facility] due to fatigue, malaise, nausea, vomiting, abdominal pain for the last week.? Patient presented to [facility], was diagnosed with diabetic ketoacidosis, newly diagnosed type 2 diabetes mellitus, A1c 9.8, received insulin drip, IV hydration, electrolyte replacement, came out of the diabetic ketoacidosis, anion gap closed, clinically improved. -Patient will be discharged on Lantus 10 units twice daily -NovoLog insulin sliding scale 3 times daily, after meals, based on size scale provided -Discharged on metformin 500 twice daily Patient was also found to have a ESBL E. coli UTI, with E. coli bacteremia, received broad-spectrum antibiotic therapy, clinically improved, repeat blood cultures negative so far. Discharged on 11 remaining days of ciprofloxacin, culture sensitive to ciprofloxacin, advised to hydrate well For hypertension, discharged on lisinopril 20 twice daily, clonidine 0.1 twice daily, Norvasc 10 mg once daily, spironolactone 25 mg once daily Patient has components of polycystic ovarian syndrome, follow-up with endocrinology, discharged on spironolactone, metformin -Please check blood sugars 3 times daily, after meals, -Please inject insulin, subcu, 3 times daily, after meals, based on sliding scale provided -If blood sugar greater than 500 call primary care -If blood sugar less than 60 drink or juice or eat a hard candy go to emergency room -Please record blood sugars and a blood sugar log bring to primary care physician office -Insulin sliding fingerstick? Insulin 141-180?2 units/sq 181-220?4 units/sq 221-260?6 units/sq 261-300?8 units/sq 301-350 10 units/sq 351-400 12 units/sq > 400? 14 units/sq -Take Lantus 10 units twice daily -Take metformin 500 twice daily -Please discuss with primary care provider about Ozempic or Victoza or Bydureon -Please monitor blood pressure, follow-up with primary care provider for blood pressure check -Hydrate well, take antibiotics as prescribed Physical Exam Const: COMMON NORMALS: no acute distress and patient oriented x3 Resp: COMMON NORMALS: normal respiratory effort, No retractions, No use of accessory muscles and clear to auscultation bilaterally AUSCULTATION: clear to auscultation bilaterally Cardio: COMMON NORMALS: regular rate, regular rhythm, S1 normal heart sound present and S2 normal heart sound present RATE: regular rate RHYTHM: regular rhythm HEART SOUNDS: S1 normal heart sound present and S2 normal heart sound present GI: COMMON NORMALS: Normal to inspection, nondistended, normoactive bowel sounds present, Soft to palpation, non-tender and No hepatosplenomegaly present PALPATION: Yes Soft to palpation and Yes No hepatosplenomegaly present Extremity: COMMON NORMALS: no pedal edema Neuro: COMMON NORMALS: patient oriented x3 Psych: COMMON NORMALS: mental status grossly normal Discharge Data Studies Completed and Pending Completed Studies During Hospitalization Category Date Time Status CT abdomen pelvis wo con [id number] Urgent Cat Scan 10/18/21 12:10 Completed XR chest 1V portable [id number] Urgent Exams 10/18/21 12:10 Completed US abdomen limited [id number] Urgent Ultrasound 10/18/21 14:51 Completed Pending at discharge Category Date Time Status Blood Culture Routine Lab 10/18/21 15:58 Results Blood Culture Stat Lab 10/20/21 05:25 Results C Reactive Protein AM LABS Lab 10/22/21 04:00 Ordered Complete Blood Count w/Auto AM LABS Lab 10/22/21 04:00 Ordered Comprehensive Metabolic Panel AM LABS Lab 10/22/21 04:00 Ordered Magnesium AM LABS Lab 10/22/21 04:00 Ordered Phosphorus AM LABS Lab 10/22/21 04:00 Ordered Procalcitonin AM LABS Lab 10/22/21 04:00 Ordered Radiology Impressions Abdomen/Pelvis CT 10/18/21 12:10 IMPRESSION: 1. No acute findings. 2. Sigmoid colon diverticulosis 3. A few small calcified gallstones Chest X-Ray 10/18/21 12:10 IMPRESSION: No acute findings. Abdomen Ultrasound 10/18/21 14:51 IMPRESSION: 1. Mild hepatomegaly. 2. Small sludge balls in the gallbladder 3. Otherwise No acute findings. Laboratory Results WBC 13.3 10^3/uL (4.0-10.0) H 10/21/21 04:34 RBC 4.38 10^6/uL (4.1-5.3) 10/21/21 04:34 Hgb 12.5 g/dL (11.5-15.3) 10/21/21 04:34 Hct 36.3 % (37.0-47.0) L 10/21/21 04:34 MCV 82.9 fl (81-99) 10/21/21 04:34 MCH 28.5 pg (28.0-34.0) 10/21/21 04:34 MCHC 34.4 g/dL (30.0-36.0) 10/21/21 04:34 RDW 12.3 % (12.1-15.1) 10/21/21 04:34 Plt Count 395 10^3/cmm (130-400) 10/21/21 04:34 MPV 10.8 fL (7.4-10.4) H 10/21/21 04:34 Neut % (Auto) 63.7 % 10/21/21 04:34 Lymph % (Auto) 25.5 % 10/21/21 04:34 [place] % (Auto) 7.4 % 10/21/21 04:34 Eos % (Auto) 1.4 % 10/21/21 04:34 Baso % (Auto) 0.6 % 10/21/21 04:34 Neut # (Auto) 8.45 10^3/uL (1.8-7.7) H 10/21/21 04:34 Lymph # (Auto) 3.4 10^3/uL (0.8-4.8) 10/21/21 04:34 [place] # (Auto) 1.0 10^3/uL (0.2-0.9) H 10/21/21 04:34 Eos # (Auto) 0.2 10^3/uL (0.0-0.8) 10/21/21 04:34 Baso # (Auto) 0.1 10^3/uL (0.0-0.1) 10/21/21 04:34 Nucleated RBC % (auto) 0 % 10/21/21 04:34 Nucleated RBCs # 0.0 /100WBC 10/21/21 04:34 Specimen Type Arterial 10/18/21 12:14 Sample Site Brachial, left 10/18/21 12:14 ABG pH 7.30 (7.35-7.45) L 10/18/21 12:14 ABG pCO2 22.9 mmHg (35-45) L 10/18/21 12:14 ABG pO2 94.4 mmHg (80.0-100.0) 10/18/21 12:14 ABG HCO3 11.3 mmol/L (22-26) L 10/18/21 12:14 ABG Base Excess -13.0 mmol/L (-2.0-2.0) L 10/18/21 12:14 Jose Test Pos 10/18/21 12:14 Hematocrit 41.9 % (37-47) 10/18/21 12:14 O2 Delivery Device Room air 10/18/21 12:14 FiO2 21.0 % 10/18/21 12:14 Chemical Lab Supervisor ID Cak 10/18/21 12:14 Sodium 137 mmol/L (136-145) 10/21/21 04:34 Potassium 3.3 mmol/L (3.5-5.1) L 10/21/21 04:34 Chloride 100 mmol/L (98-107) 10/21/21 04:34 Carbon Dioxide 24 mmol/L (22-29) 10/21/21 04:34 Anion Gap 16.3 (5-19) 10/21/21 04:34 BUN 11 mg/dL (6-20) 10/21/21 04:34 Creatinine 0.5 mg/dL (0.5-0.9) 10/21/21 04:34 GFR Calculation 134.0 mL/min (90-130) H 10/21/21 04:34 Glucose 151 mg/dL (65-115) H 10/21/21 04:34 POC Glucose 161 mg/dL (70-110) H 10/21/21 06:19 Estimat Average Glucose 235 10/18/21 17:19 Hemoglobin A1c 9.8 % (4.0-6.0) H 10/18/21 17:19 Calculated Osmolality 286 mOsm/kg (285-295) 10/21/21 04:34 Lactate 2.1 mmol/L (0.5-2.2) 10/18/21 11:28 Calcium 8.9 mg/dL (8.5-10.5) 10/21/21 04:34 Phosphorus 3.8 mg/dL (2.5-4.5) 10/21/21 04:34 Magnesium 1.8 mg/dL (1.7-2.3) 10/21/21 04:34 Total Bilirubin 0.2 mg/dL (0.15-1.2) 10/21/21 04:34 AST 19 U/L (0-32) 10/21/21 04:34 ALT 35 U/L (0-33) H 10/21/21 04:34 Alkaline Phosphatase 89 IU/L (35-105) 10/21/21 04:34 Troponin T Baseline 10 ng/L (0-10) 10/18/21 17:19 Troponin T 120 Minute 10.31 ng/L (0-10) H 10/18/21 18:56 Delta Troponin T 0.31 ABS# (0-10) 10/18/21 18:56 Troponin T Hi Sens 6Hr 10.22 ng/L (0-10) H 10/18/21 23:00 Troponin T Hi Sens 6Hr Delta 0.22 ng/L (0-12) 10/18/21 23:00 C-Reactive Protein 54.7 mg/L (0.0-4.9) H 10/21/21 04:34 Total Protein 6.7 g/dL (6.6-8.7) 10/21/21 04:34 Albumin 3.1 g/dL (3.5-5.2) L 10/21/21 04:34 Globulin 3.6 g/dL (1.3-4.6) 10/21/21 04:34 Triglycerides 164 mg/dL (0-150) H 10/18/21 17:19 Cholesterol 147 mg/dL (0-200) 10/18/21 17:19 LDL Cholesterol, Calc 97 mg/dL (50-129) 10/18/21 17:19 HDL Cholesterol 17 mg/dL (60-100) L 10/18/21 17:19 LDL/HDL Ratio 5.71 RATIO (0.00-3.22) H 10/18/21 17:19 Cholesterol/HDL Ratio 8.65 mg/dL (0.0-4.40) H 10/18/21 17:19 Lipase 43 U/L (13-60) 10/18/21 11:28 Procalcitonin 0.22 ng/mL (0-0.5) 10/21/21 04:34 TSH 1.34 uIU/mL (0.27-4.20) 10/18/21 17:19 HCG, Qual Negative (Negative) 10/18/21 13:00 Urine Color Yellow (Yellow) 10/18/21 13:00 Urine Appearance Sl hazy (CLEAR) 10/18/21 13:00 Urine pH 5 (5-7) 10/18/21 13:00 Ur Specific [place] 1.020 (1.005-1.030) 10/18/21 13:00 Urine Protein Neg (Negative) 10/18/21 13:00 Urine Glucose (UA) 4+ (Normal) H 10/18/21 13:00 Urine Ketones 3+ (Negative) H 10/18/21 13:00 Urine Blood 3+ (Negative) H 10/18/21 13:00 Urine Nitrate Negative (Negative) 10/18/21 13:00 Urine Bilirubin Neg (Negative) 10/18/21 13:00 Urine Urobilinogen Norm mg/dL (Negative) 10/18/21 13:00 Ur Leukocyte Esterase Negative (Negative) 10/18/21 13:00 Urine RBC 0-4 /hpf (0-2) H 10/18/21 13:00 Urine WBC 10-15 /hpf (0-5) H 10/18/21 13:00 Ur Squamous Epith Cells 0-4 /hpf (0-5) H 10/18/21 13:00 Amorphous Sediment Not Reportable 10/18/21 13:00 Urine Bacteria 2+ /hpf (NONE) H 10/18/21 13:00 Serum Ketones Positive (Negative) H 10/18/21 11:28 Vitals Last Vital Signs Temp 98.3 F 10/21/21 07:21 Pulse 86 10/21/21 07:21 Resp 18 10/21/21 07:21 BP 172/93 10/21/21 09:22 Pulse Ox 98 10/21/21 07:21 Discharge Plan Discharge Patient Disposition: Home Condition: Stable Prescriptions: New clonidine HCl 0.1 mg Tablet 0.1 mg PO BID 30 Days Qty: 60 0RF amlodipine 10 mg Tablet 10 mg PO DAILY 30 Days Qty: 30 0RF lisinopril 20 mg Tablet 20 mg PO BID 30 Days Qty: 60 0RF insulin aspart U-100 [Novolog Flexpen U-100 Insulin] 100 unit/mL (3 mL) insulin pen See Rx Instructions .ROUTE .COMPLEX Qty: 15 0RF Rx Instructions: Inject subcu, 3 times daily, after meals, based on sliding scale provided insulin glargine [Basaglar KwikPen U-100 Insulin] 100 unit/mL (3 mL) insulin pen 10 unit SUBCUT Q12H 30 Days Qty: 15 0RF metformin 500 mg tablet 500 mg PO BID 30 Days Qty: 60 0RF spironolactone [Aldactone] 25 mg tablet 25 mg PO DAILY 30 Days Qty: 30 0RF ciprofloxacin HCl [Cipro] 500 mg tablet 500 mg PO BID 11 Days Qty: 22 0RF Continued ondansetron HCl 4 mg tablet 4 mg PO TID PRN (Reason: Nausea) 0RF Discharge Orders: Discharge Order (Routine); Ordered 10/21/21 Ordered By: Filipe Delgado Referrals: Noemi Goldberg MD [Physician] - 4-7 days Discharge Diet: Diabetic Discharge Activity: Resume usual activity Patient Instructions: Diabetes and Diet, Insulin Aspart, Recombinant (By injection) (Novolog, Novolog..., Insulin Glargine (By injection), Hypoglycemia, Diabetic Gastroparesis (DC), Hypoglycemia in a Person with Diabetes (ED), Type 2 Diabetes in Adults: New Diagnosis (DC), Diabetic Foot Ulcers (GEN), DASH Eating Plan (DC), Diabetic Kidney Disease (DC), What to Do if Your Blood Sugar is Low (ED), Diabetes and Exercise (DC), How to Check your Blood Sugar (DC), Type 2 Diabetes Management for Adults (DC), Opioid Safety Activity Restrictions/Additional Instructions: -Please check blood sugars 3 times daily, after meals, -Please inject insulin, subcu, 3 times daily, after meals, based on sliding scale provided -If blood sugar greater than 500 call primary care -If blood sugar less than 60 drink or juice or eat a hard candy go to emergency room -Please record blood sugars and a blood sugar log bring to primary care physician office -Insulin sliding fingerstick? Insulin 141-180?2 units/sq 181-220?4 units/sq 221-260?6 units/sq 261-300?8 units/sq 301-350 10 units/sq 351-400 12 units/sq > 400? 14 units/sq -Take Lantus 10 units twice daily -Take metformin 500 twice daily -Please discuss with primary care provider about Ozempic or Victoza or Bydureon -Please monitor blood pressure, follow-up with primary care provider for blood pressure check -Hydrate well, take antibiotics as prescribed Discharge Attestations Time Spent in Discharge Care*: less than 30 min Quality Metrics Clinical Quality Measures [ No reported AMI, CVA or VTE this stay] Coding Level of Care Code Acute g [facility] note Diagnoses E. coli UTI N39.0; B96.20 E. coli bacteremia R78.81; B96.20 DKA (diabetic ketoacidosis) E11.10
[2021-10-21 11:41] LABS: Glucose Point of Care 131 mg/dL (70-110)
== END 2021-10-21 14:15 | disposition home or self-care (01) | DRG 638 ==
LOC: ER 13:24 → ICU 14:11 → MEDSURG 10-20 18:13
PROVIDERS: Admitting Provider Family Medicine; Emergency Provider Emergency Medicine; Visit Provider Family Medicine
DX: E11.10 Type 2 diabetes mellitus with ketoacidosis without coma (principal); N39.0 Urinary tract infection, site not specified; B96.20 Unspecified Escherichia coli [E. coli] as the cause of diseases classified elsewhere; I10 Essential (primary) hypertension; E28.2 Polycystic ovarian syndrome
CPT/HCPCS: 36415; 36416; 36600; 71045; 74176; 76705; 80048; 80053; 80061; 81001; 81025; 82009; 82803; 82962; 83036; 83605; 83690; 83735; 84100; 84145; 84443; 84484; 85025; 86140; 87040; 87077; 87086; 87150; 87186; 87205; 93005; 96365; 96366; 96367; 96372; 99285; C9113; J0743; J1650; J1815; J3475; J3480; J7030; J7050

== ENCOUNTER → 2021-10-29 16:20 | Outpatient (BNVA) | payer BC, SELFPAY | PROVIDERS: PCP Family Medicine Adult Medicine; Visit Provider Internal Medicine | DX: E10.9 Type 1 diabetes mellitus without complications (principal) | CPT/HCPCS: 82947; 84681; 86337; 86341 ==

== ENCOUNTER → 2022-01-29 11:11 | Outpatient (BNVA) | payer BC, SELFPAY | PROVIDERS: PCP Family Medicine Adult Medicine; Visit Provider Family Medicine Adult Medicine | DX: I10 Essential (primary) hypertension (principal); E78.2 Mixed hyperlipidemia; R03.0 Elevated blood-pressure reading, without diagnosis of hypertension | CPT/HCPCS: 80053; 83036 ==

== ENCOUNTER 2022-09-07 22:07 | Emergency (ER) | payer BC, SELFPAY ==
--- NOTE | 2022-09-07 22:08 | XRR_ITS ---
PROCEDURE INFORMATION: Exam: XR Chest Exam date and time: 09/07/2022 10:24 PM Age: 47 years old Clinical indication: Shortness of breath; Additional info: SOB TECHNIQUE: Imaging protocol: Radiologic exam of the chest. Views: 1 view. COMPARISON: CR XR chest 1V portable [id number] 10/18/2021 12:25 PM FINDINGS: Tubes, catheters and devices: EKG monitoring leads overlie the thoracic wall. Lungs: There is incomplete lung expansion and crowding of the vascular markings. There is no evidence of focal pulmonary consolidation. Examination is taken in a lordotic view. Pleural spaces: No pleural effusion or pneumothorax. Heart/Mediastinum: Normal in size. Bones/joints: No acute fracture is identified. XR/XR chest 1V portable [id number] IMPRESSION: No acute cardiopulmonary findings.
--- NOTE | 2022-09-07 22:09 | ECG_ITS ---
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 Measurements Intervals Lucinda Rate: 91 P: 52 RI: 139 QRS: 38 QRSD: 86 T: 54 QT: 356 QTc: 439 Interpretive Statements SINUS RHYTHM Compared to ECG 10/18/2021 21:35:05 Sinus tachycardia no longer present Electronically Signed On 09-08-2022 6:42:33 CDT by Denny Alejandra M.D. [id number]
[2022-09-07 22:19] VITALS: BP 149/76; PULSE 101; RESP 22; TEMP 37.2; O2SAT 100
[2022-09-07 22:28] LABS: Basophils # 0.1 10^3/uL (0.0-0.1); Basophils % 0.5 %; Hematocrit 47.2 % (37.0-47.0); Hemoglobin 17.1 g/dL (11.5-15.3); Lymphocytes # 1.8 10^3/uL (0.8-4.8); Lymphocytes % 11.9 %; Mean Corpuscular HGB Conc 36.2 g/dL (30.0-36.0); Mean Corpuscular Hemoglobin 30.3 pg (28.0-34.0); Mean Corpuscular Volume 83.7 fl (81-99); Monocytes # 0.7 10^3/uL (0.2-0.9); Monocytes % 4.2 %; Neutrophils # 12.81 10^3/uL (1.8-7.7); Nucleated Red Blood Cells % 0 %; Platelet Count 445 10^3/cmm (130-400); Red Blood Count 5.64 10^6/uL (4.1-5.3); Red Cell Distribution Width 11.5 % (12.1-15.1); White Blood Count 15.4 10^3/uL (4.0-10.0)
[2022-09-07] MEDS: sodium chloride 0.9% 1,000 ML 999 ML IV ×2 (22:28→23:25)
[2022-09-07] MEDS: ondansetron 2 mg/ML SDV 2 mL 4 MG IVP (22:30)
--- NOTE | 2022-09-07 22:30 | CTR_ITS ---
PROCEDURE INFORMATION: Exam: CT Abdomen And Pelvis With Contrast Exam date and time: 09/07/2022 10:56 PM Age: 47 years old Clinical indication: Nausea and vomiting; Abdominal pain; Generalized; Patient HX: Diffuse abd pain with n/v. TECHNIQUE: Imaging protocol: Computed tomography of the abdomen and pelvis with contrast. Radiation optimization: All CT scans at this facility use at least one of these dose optimization techniques: automated exposure control; mA and/or kV adjustment per patient size (includes targeted exams where dose is matched to clinical indication); or iterative reconstruction. Contrast material: OMNI 350; Contrast volume: 100 ml; Contrast route: INTRAVENOUS (IV); REPORTING DATA: Count of CT and Cardiac NM exams in prior 12 months: This patient has received [address] and 0 known cardiac nuclear medicine studies in the 12 months prior to the current study. COMPARISON: CT abdomen pelvis wo con [id number] 10/18/2021 12:36 PM RADIATION DOSE METRICS: Total DLP (mGy-cm): 816.92 FINDINGS: Limitations: Streak and motion artifacts limit evaluation. Lungs: The visualized lung bases show no consolidation. Liver: The liver is normal in size. There are no enhancing liver masses. Gallbladder and bile ducts: The gallbladder is normal. No gallstones are identified. Pancreas: The pancreas is normal. Spleen: The spleen is normal in size and density. Adrenal glands: The adrenal glands are normal. Kidneys and ureters: There is no hydronephrosis. No renal or obstructive ureteral calculi are identified. Stomach and bowel: There are multiple small bowel loops with thickened spence consistent with enteritis (series 4, image 41; series 9, images 21-25). There is moderate fecal stasis throughout the colon. Appendix: A normal appendix is identified. Intraperitoneal space: No free air. No significant fluid collection. Vasculature: There is no abdominal aortic aneurysm. There are prominent mesenteric veins forming the comb sign of enteritis (series 9, image 23). Lymph nodes: No enlarged retroperitoneal or mesenteric lymph nodes. Urinary bladder: The bladder shows a normal contour and is free of calcific opacities. Reproductive: Unremarkable as visualized. Bones/joints: No acute fracture. There are degenerative disc disease and osteophytes of the lower thoracic spine. Soft tissues: There is a simple follicle in the right ovary measuring [address]/CT abdomen pelvis w con* [id number] IMPRESSION: 1. Findings consistent with enteritis. Underdistension may present a similar picture. 2. Moderate fecal stasis throughout the colon suggesting constipation. 3. A simple follicle in the right ovary.
[2022-09-07] MEDS: LORazepam 2 mg/mL INJ 1 mL 1 MG IVP (22:36)
--- NOTE | 2022-09-07 22:37 | W.ED.NAVMDI ---
HPI - Nausea/Vomiting/Diarrhea General: Chief complaint: Nausea/Vomiting/Diarrhea Stated complaint: N/V/SOB Time Seen by Provider: 09/07/22 22:09 Source: patient and EMS Limitations: no limitations History of Present Illness: 47-year-old female has a history of diabetes states she has had nausea and vomiting since . He states that she is had vomiting throughout the day again today she had some abdominal cramping that is diffuse in nature. States she is feeling quite anxious because her blood sugars been running high. Denies any cough denies any fever denies any diarrhea. Associated nausea: Yes Associated symtoms: Reports nausea; Denies chest pain or headache(s) Review of Systems Const: Denies: fever(s), chills, body aches or change in appetite ENMT: Denies: throat pain or dental pain Card: Denies: chest pain Resp: Reports: dyspnea GI: Reports: abdominal pain, nausea and vomiting; Denies: diarrhea Musc: Denies: neck pain or back pain Skin/Breast: Denies: rash Neuro: Denies: headache(s) All/Imm: Denies: urticaria PFSH ED PFSH: Medical History Elevated blood pressure reading Hypertension Surgical History No significant past surgical history Family History Father Diabetes Mother Diabetes Social History Smoking and tobacco status: never smoked Smoking risk assessment/counseling performed?: No Alcohol intake: never Desire information about alcohol rehabilitation?: No Counseling given: No Substance/Drug Use: never Desire information about substance/drug rehabilitation?: No Counseling given: No Adopted: No Caregiver/support person: No Lives independently: Yes Marital status: Single Current occupational status: employed 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 Special hilaria needs: No Agree to transfusion: Yes Female Reproductive History: Date of last menstrual period: 08/17/22 Physical Exam Const: COMMON NORMALS: no acute distress, patient oriented x3 and healthy appearing GENERAL APPEARANCE: anxious HENMT: COMMON NORMALS: normocephalic and atraumatic HEAD & SCALP: normocephalic and atraumatic Eye: COMMON NORMALS: Equal, round and reactive pupils present and EOMs intact bilaterally PUPIL: Yes Equal, round and reactive pupils present Neck/C-Spine: COMMON NORMALS: full ROM and supple Chest: COMMONS NORMALS: normal inspection of the chest and normal palpation of entire chest wall Resp: COMMON NORMALS: normal respiratory effort, No retractions, No use of accessory muscles and clear to auscultation bilaterally AUSCULTATION: clear to auscultation bilaterally Cardio: COMMON NORMALS: regular rate, regular rhythm and No murmurs present (Cardio) RATE: regular rate RHYTHM: regular rhythm GI: COMMON NORMALS: Normal to inspection, nondistended, normoactive bowel sounds present, Soft to palpation, non-tender and no masses PALPATION: Yes Soft to palpation Extremity: COMMON NORMALS: normal to inspection and full ROM Neuro: COMMON NORMALS: patient oriented x3, moves all extremities and no focal motor deficits Psych: COMMON NORMALS: mental status grossly normal, Normal thought process present and cooperative THOUGHT PROCESS: Normal thought process present Skin: COMMON NORMALS: no rashes or lesions noted and no wounds GENERAL SKIN EXAM: no rashes or lesions noted Course Vital Signs: Vital signs: Vital Signs Temperature 98.9 F 09/07/22 22:19 Pulse Rate 85 09/08/22 01:15 Respiratory Rate 16 09/08/22 01:15 Blood Pressure 149/76 09/07/22 22:19 Pulse Oximetry 100 09/07/22 22:19 MDM - Nausea/Vomiting/Diarrhea Medical Decision Making Patient presents here with vomiting on diarrhea is likely an enteritis. CT scan here was normal her electrolytes are much improved after oral potassium and fluids. She feels much improved like to go home we will prescribe her Zofran for home she is to follow-up with PCP and return if worsening. Medical Records I reviewed the patient's medical records. Lab Data I reviewed the patient's lab results. 09/07/22 22:20 09/08/22 01:10 Radiology Impressions Chest X-Ray 09/07/22 22:08 IMPRESSION: No acute cardiopulmonary findings. Abdomen/Pelvis CT 09/07/22 22:30 IMPRESSION: 1. Findings consistent with enteritis. Underdistension may present a similar picture. 2. Moderate fecal stasis throughout the colon suggesting constipation. 3. A simple follicle in the right ovary. Laboratory Results WBC 15.4 10^3/uL (4.0-10.0) H 09/07/22 22:20 RBC 5.64 10^6/uL (4.1-5.3) H 09/07/22 22:20 Hgb 17.1 g/dL (11.5-15.3) H 09/07/22 22:20 Hct 47.2 % (37.0-47.0) H 09/07/22 22:20 MCV 83.7 fl (81-99) 09/07/22 22:20 MCH 30.3 pg (28.0-34.0) 09/07/22 22: MCHC 36.2 g/dL (30.0-36.0) H 09/07/22:20 RDW 11.5 % (12.1-15.1) L 09/07/22:20 Plt Count 445 10^3/cmm (130-400) H 09/07/22 22:20 MPV 11.0 fL (7.4-10.4) H 09/07/22 22:20 Neut % (Auto) 83.0 % 09/07/22 22:20 Lymph % (Auto) 11.9 % 09/07/22 22:20 [place] % (Auto) 4.2 % 09/07/22:20 Eos % (Auto) 0.0 % 09/07/22:20 Baso % (Auto) 0.5 % 09/07/22 22:20 Neut # (Auto) 12.81 10^3/uL (1.8-7.7) H 09/07/22 22:20 Lymph # (Auto) 1.8 10^3/uL (0.8-4.8) 09/07/22 22:20 [place] # (Auto) 0.7 10^3/uL (0.2-0.9) 09/07/22 22:20 Eos # (Auto) 0.0 10^3/uL (0.0-0.8) 09/07/22 22:20 Baso # (Auto) 0.1 10^3/uL (0.0-0.1) 09/07/22:20 Nucleated RBC % (auto) 0 % 09/07/22 22:20 Nucleated RBCs # 0.0 /100WBC 09/07/22 22:20 Sodium 137 mmol/L (136-145) 09/08/22 01:10 Potassium 3.4 mmol/L (3.5-5.1) L 09/08/22 01:10 Chloride 98 mmol/L (98-107) 09/08/22 01:10 Carbon Dioxide 23 mmol/L (22-29) 09/08/22 01:10 Anion Gap 19.4 (5-19) H 09/08/22 01:10 BUN 27 mg/dL (6-20) H 09/08/22 01:10 Creatinine 0.8 mg/dL (0.5-0.9) 09/08/22 01:10 GFR Calculation 77.6 mL/min (90-130) L 09/08/22 01:10 Glucose 184 mg/dL (65-115) H 09/08/22 01:10 Calculated Osmolality 294 mOsm/kg (285-295) 09/08/22 01:10 Calcium 9.2 mg/dL (8.5-10.5) 09/08/22 01:10 Magnesium 2.0 mg/dL (1.7-2.3) 09/07/22 22:20 Total Bilirubin 1.0 mg/dL (0.15-1.2) 09/07/22 22:20 AST 27 U/L (0-32) 09/07/22 22:20 ALT 30 U/L (0-33) 09/07/22 22:20 Alkaline Phosphatase 79 U/L (35-105) 09/07/22 22:20 Total Protein 8.8 g/dL (6.6-8.7) H 09/07/22 22:20 Albumin 5.1 g/dL (3.5-5.2) 09/07/22 22:20 Globulin 3.7 g/dL (1.3-4.6) 09/07/22 22:20 Lipase 47 U/L (13-60) 09/07/22 22:20 EKG Data EKG 1: I personally reviewed and interpreted this EKG as follows: EKG interpretation date: 09/07/22 EKG interpretation time: 22:21 Interpretation: nsr hr [address] or t wave abnormalities qrs 86 qtc 405 Discharge Plan Discharge Patient Disposition: Home Clinical Impression: Vomiting, Hypokalemia Condition: Stable Prescriptions: New ondansetron 4 mg tablet,disintegrating 4 mg PO Q6H PRN (Reason: nausea and vomiting) Qty: 14 0RF No Action (DME) pen needle, diabetic [BD Ultra-Fine Micro Pen Needle] 32 gauge x 1/4 needle See Rx Instructions .Route Qty: 360 3RF Rx Instructions: As directed metformin 500 mg tablet extended release 24 hr 1,000 mg PO BID Qty: 360 3RF Rx Instructions: Take two tablets by mouth daily. Novolog FlexPen U-100 Insulin 100 unit/mL (3 mL) insulin pen 1 sliding scale dose SUBCUT TID Qty: 15 3RF Rx Instructions: Sliding scale 3 times after meals (DME) FreeStyle Adelina 2 Sensor Kit See Rx Instructions .Route Qty: 4 2RF Rx Instructions: change every 14 days acarbose 25 mg tablet 25 mg PO TID Qty: 180 2RF amlodipine 10 mg tablet 10 mg PO DAILY Qty: 90 3RF Aldactone 25 mg tablet 25 mg PO DAILY Qty: 90 3RF Basaglar KwikPen U-100 Insulin 100 unit/mL (3 mL) insulin pen 10 unit SUBCUT DAILY fluticasone propionate [Flonase Allergy Relief] 50 mcg/actuation spray,suspension 2 spray intranasal DAILY Qty: 16 0RF Rx Instructions: administer into each nostril ondansetron 4 mg tablet,disintegrating 4 mg PO Q8H PRN (Reason: nausea and vomiting) Qty: 14 0RF (DME) Dexcom G6 Direct Marketing Analyst Misc See Rx Instructions .Route Qty: 1 0RF Rx Instructions: As directed (DME) Dexcom G6 Sensor Device See Rx Instructions .Route Qty: 3 0RF Rx Instructions: As directed (DME) Dexcom G6 Transmitter Device See Rx Instructions .Route Qty: 1 0RF Rx Instructions: As directed Discharge Orders: Discharge ED (Routine); Ordered 09/08/22 Ordered By: Sushil Espana Referrals: Jayson Blackburn MD [Primary Care Provider] - 1-3 days Discharge Diet: Advance as tolerated Discharge Activity: Resume usual activity Patient Instructions: Acute Nausea and Vomiting (ED) Coding Level of Care Code ED 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
[2022-09-07 22:49] LABS: Alanine Aminotransferase 30 U/L (0-33); Albumin Level 5.1 g/dL (3.5-5.2); Alkaline Phosphatase 79 U/L (35-105); Anion Gap 27.6 (5-19); Aspartate Amino Transferase 27 U/L (0-32); Blood Urea Nitrogen 29 mg/dL (6-20); Calcium 10.7 mg/dL (8.5-10.5); Carbon Dioxide 19 mmol/L (22-29); Chloride 92 mmol/L (98-107); Globulin 3.7 g/dL (1.3-4.6); Glucose 224 mg/dL (65-115); Lipase 47 U/L (13-60); Osmolality Calculated 295 mOsm/kg (285-295); Sodium 136 mmol/L (136-145); Total Protein 8.8 g/dL (6.6-8.7)
[2022-09-07] MEDS: iohexol 350 mg/mL 500 mL Btl (per mL) IV (23:00)
[2022-09-07 23:08] LABS: Potassium 2.6 mmol/L (3.5-5.1)
[2022-09-07] MEDS: potassium chloride ER 20 mEq Tablet 80 MEQ PO (23:24)
[2022-09-07 23:28] VITALS: PULSE 95; RESP 16
[2022-09-08 01:15] VITALS: PULSE 85; RESP 16
[2022-09-08 01:44] LABS: Anion Gap 19.4 (5-19); Blood Urea Nitrogen 27 mg/dL (6-20); Calcium 9.2 mg/dL (8.5-10.5); Carbon Dioxide 23 mmol/L (22-29); Chloride 98 mmol/L (98-107); Glomerular Filtration Rate 77.6 mL/min (90-130); Glucose 184 mg/dL (65-115); Osmolality Calculated 294 mOsm/kg (285-295); Potassium 3.4 mmol/L (3.5-5.1); Sodium 137 mmol/L (136-145)
[2022-09-08 02:16] VITALS: BP 149/76; PULSE 85; RESP 16; TEMP 37.2; O2SAT 100
== END 2022-09-08 02:17 | disposition home or self-care (01) ==
PROVIDERS: Emergency Provider Emergency Medicine; PCP Family Medicine Adult Medicine
DX: R11.11 Vomiting without nausea (principal); E87.6 Hypokalemia; Z79.4 Long term (current) use of insulin; Z79.84 Long term (current) use of oral hypoglycemic drugs; I10 Essential (primary) hypertension
CPT/HCPCS: 71045; 74177; 80048; 80053; 83690; 83735; 85025; 93005; 96361; 96374; 96375; 99285; J2060; J2405; J7030; Q9967

== ENCOUNTER 2022-12-10 06:32 | Outpatient (CLI) | payer BC, SELFPAY ==
[2022-12-10 07:17] LABS: Estmated Average Glucose 120; Hemoglobin A1C 5.8 % (4.0-6.0)
[2022-12-10 07:20] LABS: Alanine Aminotransferase 22 U/L (0-33); Albumin Level 4.4 g/dL (3.5-5.2); Alkaline Phosphatase 68 U/L (35-105); Aspartate Amino Transferase 25 U/L (0-32); Blood Urea Nitrogen 10 mg/dL (6-20); Calcium 9.2 mg/dL (8.5-10.5); Carbon Dioxide 25 mmol/L (22-29); Chloride 105 mmol/L (98-107); Chol HDL Ratio 2.64 mg/dL (0.0-4.40); Cholesterol 124 mg/dL (0-200); Globulin 2.8 g/dL (1.3-4.6); Glomerular Filtration Rate 108.1 mL/min (90-130); Glucose 194 mg/dL (65-115); HDL Cholesterol 47 mg/dL (60-100); LDL Cholesterol Calculated 60 mg/dL (50-129); LDL HDL Ratio 1.28 RATIO (0.00-3.22); Osmolality Calculated 298 mOsm/kg (285-295); Sodium 142 mmol/L (136-145); Total Bilirubin 0.4 mg/dL (0.15-1.2); Total Protein 7.2 g/dL (6.6-8.7); Triglycerides 87 mg/dL (0-150)
[2022-12-10 07:22] LABS: Anion Gap 15.8 (5-19); Potassium 3.8 mmol/L (3.5-5.1)
[2022-12-10 08:06] LABS: Creatinine Urine, Random 281 mg/dL (28-217); Microalbumin Random Urine 20 ug/dL (0-20)
[2022-12-10 08:07] LABS: Microalbum Creatinine Ratio Ur 71 mg/dL (0-20)
== END 2022-12-10 06:33 | disposition home or self-care (01) ==
PROVIDERS: PCP Family Medicine Adult Medicine; Visit Provider Internal Medicine
DX: E11.9 Type 2 diabetes mellitus without complications (principal)
CPT/HCPCS: 36415; 80053; 80061; 82044; 83036

== ENCOUNTER 2023-04-09 09:19 | Outpatient (CLI) | payer BC, SELFPAY ==
[2023-04-09 10:29] LABS: Alanine Aminotransferase 32 U/L (0-33); Albumin Level 4.6 g/dL (3.5-5.2); Alkaline Phosphatase 95 U/L (35-105); Anion Gap 15.1 (5-19); Aspartate Amino Transferase 35 U/L (0-32); Blood Urea Nitrogen 14 mg/dL (6-20); Calcium 9.6 mg/dL (8.5-10.5); Carbon Dioxide 28 mmol/L (22-29); Chloride 103 mmol/L (98-107); Chol HDL Ratio 2.56 mg/dL (0.0-4.40); Cholesterol 141 mg/dL (0-200); Globulin 3.4 g/dL (1.3-4.6); Glomerular Filtration Rate 90.5 mL/min (90-130); Glucose 123 mg/dL (65-115); HDL Cholesterol 55 mg/dL (60-100); LDL Cholesterol Calculated 71 mg/dL (50-129); LDL HDL Ratio 1.29 RATIO (0.00-3.22); Osmolality Calculated 296 mOsm/kg (285-295); Potassium 4.1 mmol/L (3.5-5.1); Sodium 142 mmol/L (136-145); Total Bilirubin 0.3 mg/dL (0.15-1.2); Triglycerides 77 mg/dL (0-150)
[2023-04-09 10:31] LABS: Estmated Average Glucose 108; Hemoglobin A1C 5.4 % (4.0-6.0)
[2023-04-09 10:41] LABS: Creatinine Urine, Random 108 mg/dL (28-217); Microalbum Creatinine Ratio Ur 9 mg/dL (0-20); Microalbumin Random Urine 1 ug/dL (0-20)
== END 2023-04-09 09:20 | disposition home or self-care (01) ==
PROVIDERS: PCP Family Medicine Adult Medicine; Visit Provider Internal Medicine
DX: E78.2 Mixed hyperlipidemia (principal); E55.9 Vitamin D deficiency, unspecified
CPT/HCPCS: 36415; 80053; 80061; 82044; 83036

== ENCOUNTER 2023-07-07 15:49 | Outpatient (CLI) | payer BC, SELFPAY ==
[2023-07-07 17:46] LABS: Alanine Aminotransferase 34 U/L (0-33); Albumin Level 4.1 g/dL (3.5-5.2); Alkaline Phosphatase 83 U/L (35-105); Anion Gap 16.1 (5-19); Aspartate Amino Transferase 28 U/L (0-32); Blood Urea Nitrogen 9 mg/dL (6-20); Calcium 9.2 mg/dL (8.5-10.5); Carbon Dioxide 26 mmol/L (22-29); Chloride 105 mmol/L (98-107); Cholesterol 147 mg/dL (0-200); Globulin 2.9 g/dL (1.3-4.6); Glomerular Filtration Rate 107.6 mL/min (90-130); Glucose 105 mg/dL (65-115); Osmolality Calculated 295 mOsm/kg (285-295); Potassium 4.1 mmol/L (3.5-5.1); Sodium 143 mmol/L (136-145); Total Bilirubin 0.3 mg/dL (0.15-1.2); Triglycerides 142 mg/dL (0-150)
[2023-07-07 17:49] LABS: Creatinine Urine, Random 73 mg/dL (28-217); Microalbum Creatinine Ratio Ur 14 mg/dL (0-20); Microalbumin Random Urine 1 ug/dL (0-20)
[2023-07-07 19:50] LABS: Chol HDL Ratio 3.13 mg/dL (0.0-4.40); HDL Cholesterol 47 mg/dL (60-100); LDL Cholesterol Calculated 72 mg/dL (50-129); LDL HDL Ratio 1.53 RATIO (0.00-3.22)
[2023-07-07 20:03] LABS: Estmated Average Glucose 123; Hemoglobin A1C 5.9 % (4.0-6.0)
== END 2023-07-07 15:50 | disposition home or self-care (01) ==
LOC: LAB 15:51
PROVIDERS: PCP Family Medicine Adult Medicine; Visit Provider Internal Medicine
DX: E11.9 Type 2 diabetes mellitus without complications (principal); E78.2 Mixed hyperlipidemia; E55.9 Vitamin D deficiency, unspecified
CPT/HCPCS: 36415; 80053; 80061; 82044; 83036

== ENCOUNTER 2023-11-01 12:18 | Emergency (ER) | payer BC, SELFPAY ==
--- NOTE | 2023-11-01 12:22 | XRR_ITS ---
PROCEDURE INFORMATION: Exam: XR Chest Exam date and time: 11/01/2023 1:21 PM Age: 48 years old Clinical indication: Shortness of breath; Additional info: SOB TECHNIQUE: Imaging protocol: Radiologic exam of the chest. Views: 1 view. COMPARISON: CR XR chest 1V portable [id number] 09/07/2022 10:24 PM FINDINGS: Lungs: Unremarkable. No consolidation. Pleural spaces: Unremarkable. No pleural effusion. No pneumothorax. Heart/Mediastinum: Unremarkable. No cardiomegaly. Bones/joints: Unremarkable. XR/XR chest 1V portable [id number] IMPRESSION: No acute findings.
--- NOTE | 2023-11-01 12:23 | ECG_ITS ---
[facility] Test Date: 2023-11-01 Pat Name: Althea Higuera Department: Room: Gender: Female Territory Representative: : 1975 Requested By: Sushil Espana Order Number: [id number] Ronni MD: Denny Alejandra M.D. Measurements Intervals [place] Rate: 96 P: 58 KS: 145 QRS: 16 QRSD: 73 T: 43 QT: 357 QTc: 453 Interpretive Statements SINUS RHYTHM LOW QRS VOLTAGE IN PRECORDIAL LEADS [QRS DEFLECTION < 1.0 mV IN CHEST LEADS] MINIMAL ST DEPRESSION [0.025+ mV ST DEPRESSION] Compared to ECG 09/07/2022 22:21:25 Low QRS voltage now present ST (T wave) deviation now present Electronically Signed On 11-01-2023 14:20:58 CDT by Denny Alejandra M.D. [id number]
[2023-11-01 12:43] VITALS: BP 148/86; PULSE 99; RESP 22; TEMP 36.4; O2SAT 100; BMI 29.2
--- NOTE | 2023-11-01 12:57 | PC.NURSE ---
DR. CANAS NOTIFIED PT MEETS SEPSIS CRITERIA
[2023-11-01 13:19] LABS: Basophils % 0.4 %; Eosinophils % 0.1 %; Hematocrit 46.1 % (36-47); Lymphocytes # 0.7 10^3/uL (0.8-4.8); Lymphocytes % 7.5 %; Mean Corpuscular HGB Conc 34.9 g/dL (30-55); Mean Corpuscular Hemoglobin 29.7 pg (27-33); Mean Corpuscular Volume 84.9 fl (85-98); Mean Platelet Volume 10.8 fL (7.4-10.4); Monocytes # 0.2 10^3/uL (0.2-0.9); Monocytes % 2.2 %; Neutrophils # 8.13 10^3/uL (1.8-7.7); Neutrophils % 89.5 %; Nucleated Red Blood Cells % 0 %; Platelet Count 409 10^3/cmm (157-399); Red Blood Count 5.43 10^6/uL (3.85-5.65); Red Cell Distribution Width 11.6 % (12.1-15.1); White Blood Count 9.09 10^3/uL (3.29-11.43)
--- NOTE | 2023-11-01 13:20 | ED_ITS ---
HPI - Abdominal Pain 2 General: Chief Complaint: Abdominal Pain Stated Complaint: vomitting, weakness, SOB Time Seen by Provider: 11/01/23 13:19 Source: patient Mode of arrival: ambulatory History of Present Illness: 48-year-old female presents to the [facility] ency room with complaints of vomiting some mild shortness of breath dry heaving. He states this has been going on for about the last 4 days she denies hematochezia melena hematemesis or coffee- ground emesis. She has not actually been bringing much up when she attempts to vomit. She has had this in the less intense fashion in the past. MD elicited complaint: abdominal pain Onset (ago): day(s) (4) Pain Consistency: constant Location: Epigastric Severity: moderate Quality: cramping Exacerbating factors: eating Relieving factors: nothing Associated Symptoms: Reports nausea, poor appetite and vomiting; Denies anorexia, belching, bloating, change in bowel habits, change in stool character, chills, coffee ground emesis, constipation, GI cramping, diarrhea, dyspepsia, dysuria, excessive flatus, fever(s), heartburn, hematochezia, hematuria, hematemesis, fecal incontinence, loose stools, melena and syncope Review of Systems 2 Const: Denies: fever(s) or chills Card: Denies: chest pain or syncope Resp: Denies: dyspnea GI: Reports: abdominal pain, nausea and vomiting; Denies: hematemesis, coffee ground emesis, heartburn, diarrhea, constipation, bloating, GI cramping, belching, excessive flatus, fecal incontinence, change in bowel habits, change in stool character, hematochezia or melena : Denies: dysuria, urinary frequency, urinary urgency or hematuria Musc: Denies: neck pain or back pain Skin/Breast: Denies: rash PFSH ED 2 PFSH: Medical History Anxiety and depression Obesity (BMI 30.0-34.9) Type 2 diabetes mellitus Hypertension Surgical History No significant past surgical history Family History Father Diabetes Mother Diabetes Social History Smoking and tobacco/nicotine status: never used tobacco/nicotine Alcohol intake: never Substance/Drug Use: never Adopted: No Caregiver/support person: No Lives independently: Yes Marital status: Single Current occupational status: employed 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 Special hilaria needs: No Agree to transfusion: Yes Physical Exam 2 Const: GENERAL APPEARANCE: cooperative and comfortable O RIENTATION/CONSCIOUSNESS: Yes awake, Yes oriented to person, Yes oriented to place and Yes oriented to time HENMT: COMMON NORMALS: normocephalic, atraumatic and hearing grossly normal bilaterally HEAD & SCALP: normocephalic and atraumatic Resp: COMMON NORMALS: normal respiratory effort, No retractions, No use of accessory muscles and clear to auscultation bilaterally AUSCULTATION: clear to auscultation bilaterally Cardio: COMMON NORMALS: regular rate, regular rhythm and No murmurs present (Cardio) RATE: regular rate RHYTHM: regular rhythm GI: COMMON NORMALS: Soft to palpation and No hepatosplenomegaly present A USCULTATION: Yes normoactive bowel sounds PALPATION: Yes Soft to palpation, No Tenderness to palpation present (GI), No Guarding due to palpation present (GI) and Yes No hepatosplenomegaly present Extremity: COMMON NORMALS: normal to inspection, capillary refill normal, no clubbing, cyanosis or edema, no calf tenderness and no pedal edema Neuro: SENSORIUM/ORIENTATION: Yes oriented to person, Yes oriented to place and Yes oriented to time Skin: COMMON NORMALS: no rashes or lesions noted GENERAL SKIN EXAM: no rashes or lesions noted Course 2 Vital Signs: Vital signs: Vital Signs Temperature 97.5 F L 11/01/23 12:43 Pulse Rate 9 L 11/01/23 17:18 Respiratory Rate 22 H 11/01/23 12:43 Blood Pressure 167/95 11/01/23 17:18 Pulse Oximetry 98 11/01/23 17:18 Oxygen Delivery Me thod Room Air 11/01/23 17:18 MDM - Abdominal Pain Medical Decision Making Persistent nausea vomiting. Exam unremarkable no leukocytosis initial anion gap 27 closed with IV fluids on repeat BMP. CT no acute findings. Glucose mildly elevated serum ketones negative will discharge patient home with antiemetics clear liquid diet. Follow-up with primary care. Lab Data 11/01/23 13:01 11/01/23 17:12 Labs/Radiology: Radiology Impressions Chest X-Ray 11/01/23 12:22 IMPRESSION: No acute findings. Abdomen/Pelvis CT 11/01/23 13:34 IMPRESSION: 1. Small esophageal hiatal hernia. 2. Normal appendix in the RIGHT lower quadrant. 3. No hydronephrosis in either kidney. 4. No other acute findings. Laboratory Results WBC 9.09 10^3/uL (3.29-11.43) 11/01/23 13:01 RBC 5.43 10^6/uL (3.85-5.65) 11/01/23 13:01 Hgb 16.10 g/dL (11.27-16.99) 11/01/23 13:01 Hct 46.1 % (36-47) 11/01/23 13:01 MCV 84.9 fl (85-98) L 11/01/23 13:01 MCH 29.7 pg (27-33) 11/01/23 13:01 MCHC 34.9 g/dL (30-55) 11/01/23 13:01 RDW 11.6 % (12.1-15.1) L 11/01/23 13:01 Plt Count 409 10^3/cmm (157-399) H 11/01/23 13:01 MPV 10.8 fL (7.4-10.4) H 11/01/23 13:01 Neut % (Auto) 89.5 % 11/01/23 13:01 Lymph % (Auto) 7.5 % 11/01/23 13:01 [place] % (Auto) 2.2 % 11/01/23 13:01 Eos % (Auto) 0.1 % 11/01/23 13:01 Baso % (Auto) 0.4 % 11/01/23 13:01 Neut # (Auto) 8.13 10^3/uL (1.8-7.7) H 11/01/23 13:01 Lymph # (Auto) 0.7 10^3/uL (0.8-4.8) L 11/01/23 13:01 [place] # (Auto) 0.2 10^3/uL (0.2-0.9) 11/01/23 13:01 Eos # (Auto) 0.0 10^3/uL (0.0-0.8) 11/01/23 13:01 Baso # (Auto) 0.0 10^3/uL (0.0-0.1) 11/01/23 13:01 Nucleated RBC % (auto) 0 % 11/01/23 13:01 Nucleated RBCs # 0.0 /100WBC 11/01/23 13:01 Sodium 142 mmol/L (136-145) 11/01/23 17:12 Potassium 4.0 mmol/L (3.5-5.1) 11/01/23 17:12 Chloride 107 mmol/L (98-107) 11/01/23 17:12 Carbon Dioxide 24 mmol/L (22-29) 11/01/23 17:12 Anion Gap 15.0 (5-19) 11/01/23 17:12 BUN 17 mg/dL (6-20) 11/01/23 17:12 Creatinine 0.6 mg/dL (0.5-0.9) 11/01/23 17:12 GFR Calculation 107.6 mL/min (90-130) 11/01/23 17:12 Glucose 142 mg/dL (65-115) H 11/01/23 17:12 Calculated Osmolality 298 mOsm/kg (285-295) H 11/01/23 17:12 Calcium 8.8 mg/dL (8.5-10.5) 11/01/23 17:12 Magnesium 1.8 mg/dL (1.7-2.3) 11/01/23 13:01 Total Bilirubin 0.5 mg/dL (0.15-1.2) 11/01/23 13:01 AST 21 U/L (0-32) 11/01/23 13:01 ALT 24 U/L (0-33) 11/01/23 13:01 Alkaline Phosphatase 90 U/L (35-105) 11/01/23 13:01 NT-Pro-B Natriuret Pep < 36 pg/mL (0-125) 11/01/23 13:01 Total Protein 8.4 g/dL (6.6-8.7) 11/01/23 13:01 Albumin 4.5 g/dL (3.5-5.2) 11/01/23 13:01 Globulin 3.9 g/dL (1.3-4.6) 11/01/23 13:01 Lipase 33 U/L (13-60) 11/01/23 13:01 HCG, Qual Negative (Negative) 11/01/23 13:01 Urine Color Yellow (Yellow) 11/01/23 13:43 Urine Appearance Clear (CLEAR) 11/01/23 13:43 Urine pH 5 (5-7) 11/01/23 13:43 Ur Specific [place] 1.010 (1.005-1.030) 11/01/23 13:43 Urine Protein Trace (Negative) 11/01/23 13:43 Urine Glucose (UA) 4+ (Normal) H 11/01/23 13:43 Urine Ketones 3+ (Negative) H 11/01/23 13:43 Urine Blood Neg (Negative) 11/01/23 13:43 Urine Nitrate Negative (Negative) 11/01/23 13:43 Urine Bilirubin Neg (Negative) 11/01/23 13:43 Urine Urobilinogen Norm mg/dL (Negative) 11/01/23 13:43 Ur Leukocyte Esterase Negative (Negative) 11/01/23 13:43 Urine RBC None /hpf (0-2) 11/01/23 13:43 Urine WBC Rare /hpf (0-5) 11/01/23 13:43 Ur Squamous Epith Cells 0-4 /hpf (0-5) H 11/01/23 13:43 Amorphous Sediment Not Reportable 11/01/23 13:43 Urine Bacteria Trace /hpf (NONE) 11/01/23 13:43 Urine Mucus Trace /hpf 11/01/23 13:43 Serum Ketones Negative (Negative) 11/01/23 13:01 XR interpretation done by ED provider, pending radiology final review Discharge Plan Discharge Patient Disposition: Home Clinical Impression: Nausea & vomiting Condition: Stable Prescriptions: New promethazine 25 mg tablet 25 mg PO Q6H PRN (Reason: nausea and vomiting) Qty: 20 0RF No Action (DME) pen needle, diabetic [BD Ultra-Fine Micro Pen Needle] 32 gauge x 1/4 needle See Rx Instructions .Route Qty: 360 3RF Rx Instructions: As directed Basaglar KwikPen U-100 Insulin 100 unit/mL (3 mL) insulin pen 5 unit SUBCUT DAILY fluticasone propionate [Flonase Allergy Relief] 50 mcg/actuation spray,suspension 2 spray intranasal DAILY Qty: 16 0RF Rx Instructions: administer into each nostril escitalopram oxalate 20 mg tablet 20 mg PO DAILY Qty: 90 1RF hydroxyzine HCl 25 mg tablet 25 mg PO Q6H PRN (Reason: anxiety episodes) Qty: 120 1RF (DME) FreeStyle Adelina 2 Sensor Kit See Rx Instructions .ROUTE .COMPLEX Qty: 4 0RF Dose Instruction: CHANGE every 14 DAYS Rx Instructions: CHANGE every 14 DAYS amlodipine 10 mg tablet 10 mg PO DAILY Qty: 90 3RF bupropion HCl 300 mg tablet extended release 24 hr 300 mg PO QAM Qty: 90 1RF Aldactone 25 mg tablet 25 mg PO DAILY Qty: 90 3RF acarbose 25 mg tablet 25 mg PO TID Novolog FlexPen U-100 Insulin 100 unit/mL (3 mL) insulin pen 1 sliding scale dose SUBCUT TID PRN (Reason: BLOOD SUGAR) Rx Instructions: Sliding scale 3 times after meals Discharge Orders: Discharge ED (Routine); Ordered 11/01/23 Ordered By: Shun Dooley Referrals: Jayson Blackburn MD [Primary Care Provider] - Discharge Diet: Usual diet Discharge Activity: Increase activity as tolerated Patient Instructions: Opioid Safety, Pain Management Activity Restrictions/Additional Instructions: Thank you for choosing [facility] for your healthcare needs today. It is very important that you follow up as instructed or that you return to the Emergency Department should you have concerns or if your condition changes or worsens in any way. You were seen today for persistent nausea and vomiting. CT did not show any acute abnormalities your laboratory test showed signs of mild dehydration which were improved on repeat lab work. There was no evidence of acute infection and no sign of bladder infection. Recommend clear liquid diet for next 24 to 48 hours use promethazine as needed for persistent nausea and vomiting. Advance diet as tolerated. 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
--- NOTE | 2023-11-01 13:34 | CT_ITS ---
WS: [id number] CT ABDOMEN PELVIS TECHNIQUE: Noncontrast CT of the abdomen and pelvis with coronal and sagittal reformatted images. CLINICAL INFORMATION: Abdominal pain COMPARISON: CT 09/07/2022 DLP: 623.[address] scans at [facility] use at least one of these dose optimization techniques: automated e xposure control; mA and/or kV adjustment per patient size (includes targeted exams where dose is matc hed to clinical indication); or iterative reconstruction. FINDINGS: Lung bases are well aerated. Tiny calcified granuloma RIGHT lower lobe. Noncontrast liver is normal. Small esophageal hiatal hernia. Adrenal glands are normal. Noncontrast pancreas appears normal. No hy dronephrosis in either kidney. Normal appendix in the RIGHT lower quadrant. Small splenule. Sigmoid colon is normal in appearance. No evidence of small or large bowel obstruction. No free fluid in the abdomen or pelvis. CT/CT abdomen pelvis wo con [id number] IMPRESSION: 1. Small esophageal hiatal hernia. 2. Normal appendix in the RIGHT lower quadrant. 3. No hydronephrosis in either kidney. 4. No other acute findings.
[2023-11-01 13:37] LABS: HCG, Serum Qual Negative (Negative)
[2023-11-01] MEDS: sodium chloride 0.9% 1,000 ML 999 ML IV ×2 (13:46→16:29)
[2023-11-01] MEDS: ondansetron 2 mg/ML SDV 2 mL 4 MG IVP (13:47)
[2023-11-01 13:48] LABS: Alanine Aminotransferase 24 U/L (0-33); Albumin Level 4.5 g/dL (3.5-5.2); Alkaline Phosphatase 90 U/L (35-105); Anion Gap 27.4 (5-19); Aspartate Amino Transferase 21 U/L (0-32); Blood Urea Nitrogen 20 mg/dL (6-20); Calcium 9.8 mg/dL (8.5-10.5); Carbon Dioxide 15 mmol/L (22-29); Chloride 99 mmol/L (98-107); Creatinine Clr Calc Pharmacy 85.1396; Globulin 3.9 g/dL (1.3-4.6); Glomerular Filtration Rate 77.2 mL/min (90-130); Glucose 254 mg/dL (65-115); Lipase 33 U/L (13-60); Magnesium 1.8 mg/dL (1.7-2.3); NT Pro B Type Natriuretic Pept < 36 pg/mL (0-125); Osmolality Calculated 297 mOsm/kg (285-295); Potassium 3.4 mmol/L (3.5-5.1); Sodium 138 mmol/L (136-145); Total Bilirubin 0.5 mg/dL (0.15-1.2); Total Protein 8.4 g/dL (6.6-8.7)
[2023-11-01 13:55] LABS: Add Urine Microscopic? YES; Bilirubin Urine Neg (Negative); Blood Urine Neg (Negative); Glucose Urine UA 4+ (Normal); Ketones Urine 3+ (Negative); Leukocyte Esterase Urine Negative (Negative); Nitrate Urine Negative (Negative); Protein Urine Trace (Negative); Urine Appearance Clear (CLEAR); Urine Color Yellow (Yellow); Urobilinogen Urine Norm (Negative); pH Urine 5 (5-7)
[2023-11-01 13:58] LABS: Add Urine Culture? No; Bacteria Urine TRACE /hpf; Mucus Urine TRACE /hpf; Squamous Epithelial Cell Urine 0-4 /hpf (0-5); WBC Urine RARE /hpf (0-5)
[2023-11-01] MEDS: haloperidol inj 5 mg/mL INJ 1 mL IVP (14:10)
[2023-11-01] MEDS: LORazepam 2 mg/mL INJ 1 mL IVP (14:11)
[2023-11-01 16:15] LABS: Ketone (Acetest) Serum Negative (Negative)
[2023-11-01 17:18] VITALS: BP 167/95; PULSE 91; O2SAT 98
[2023-11-01 17:57] LABS: Blood Urea Nitrogen 17 mg/dL (6-20); Calcium 8.8 mg/dL (8.5-10.5); Carbon Dioxide 24 mmol/L (22-29); Chloride 107 mmol/L (98-107); Creatinine Clr Calc Pharmacy 113.5194; Glomerular Filtration Rate 107.6 mL/min (90-130); Glucose 142 mg/dL (65-115); Osmolality Calculated 298 mOsm/kg (285-295); Sodium 142 mmol/L (136-145)
[2023-11-01 18:35] VITALS: BP 161/94; PULSE 89; O2SAT 98
== END 2023-11-01 18:38 | disposition home or self-care (01) ==
PROVIDERS: Emergency Medicine; Emergency Provider Family Medicine; PCP Family Medicine Adult Medicine
DX: R11.2 Nausea with vomiting, unspecified (principal); Z79.4 Long term (current) use of insulin; E11.9 Type 2 diabetes mellitus without complications; I10 Essential (primary) hypertension
CPT/HCPCS: 36415; 71045; 74176; 80048; 80053; 81001; 82009; 83690; 83735; 83880; 84703; 85025; 93005; 96361; 96374; 96375; 99285; J1630; J2060; J2405; J7030

== ENCOUNTER 2023-11-15 06:28 | Outpatient (CLI) | payer BC, SELFPAY ==
[2023-11-15 07:16] LABS: Estmated Average Glucose 126
[2023-11-15 07:17] LABS: Alanine Aminotransferase 24 U/L (0-33); Alkaline Phosphatase 84 U/L (35-105); Anion Gap 15.6 (5-19); Aspartate Amino Transferase 24 U/L (0-32); Blood Urea Nitrogen 12 mg/dL (6-20); Calcium 8.8 mg/dL (8.5-10.5); Carbon Dioxide 26 mmol/L (22-29); Chloride 107 mmol/L (98-107); Chol HDL Ratio 3.15 mg/dL (0.0-4.40); Cholesterol 164 mg/dL (0-200); Globulin 3.2 g/dL (1.3-4.6); Glomerular Filtration Rate 107.6 mL/min (90-130); Glucose 166 mg/dL (65-115); HDL Cholesterol 52 mg/dL (60-100); LDL Cholesterol Calculated 96 mg/dL (50-129); LDL HDL Ratio 1.85 RATIO (0.00-3.22); Osmolality Calculated 302 mOsm/kg (285-295); Potassium 4.6 mmol/L (3.5-5.1); Sodium 144 mmol/L (136-145); Total Bilirubin 0.2 mg/dL (0.15-1.2); Total Protein 7.2 g/dL (6.6-8.7); Triglycerides 81 mg/dL (0-150)
[2023-11-15 07:32] LABS: Creatinine Urine, Random 82 mg/dL (28-217); Microalbum Creatinine Ratio Ur 12 mg/dL (0-20); Microalbumin Random Urine 1 ug/dL (0-20)
== END 2023-11-15 06:29 | disposition home or self-care (01) ==
PROVIDERS: PCP Family Medicine Adult Medicine; Visit Provider Internal Medicine
DX: E11.59 Type 2 diabetes mellitus with other circulatory complications (principal); Z79.4 Long term (current) use of insulin; E78.2 Mixed hyperlipidemia; E55.9 Vitamin D deficiency, unspecified
CPT/HCPCS: 36415; 80053; 80061; 82044; 83036

== ENCOUNTER 2024-03-14 06:46 | Outpatient (CLI) | payer BC, SELFPAY ==
[2024-03-14 07:54] LABS: Alanine Aminotransferase 19 U/L (0-33); Albumin Level 3.8 g/dL (3.5-5.2); Alkaline Phosphatase 112 U/L (35-105); Anion Gap 13.8 (5-19); Aspartate Amino Transferase 26 U/L (0-32); Blood Urea Nitrogen 11 mg/dL (6-20); Calcium 8.7 mg/dL (8.5-10.5); Carbon Dioxide 26 mmol/L (22-29); Chloride 100 mmol/L (98-107); Chol HDL Ratio 3.39 mg/dL (0.0-4.40); Cholesterol 139 mg/dL (0-200); Globulin 2.9 g/dL (1.3-4.6); Glomerular Filtration Rate 107.6 mL/min (90-130); Glucose 186 mg/dL (65-115); HDL Cholesterol 41 mg/dL (60-100); LDL Cholesterol Calculated 62 mg/dL (50-129); LDL HDL Ratio 1.51 RATIO (0.00-3.22); Osmolality Calculated 286 mOsm/kg (285-295); Potassium 3.8 mmol/L (3.5-5.1); Sodium 136 mmol/L (136-145); Total Bilirubin 0.2 mg/dL (0.15-1.2); Total Protein 6.7 g/dL (6.6-8.7); Triglycerides 182 mg/dL (0-150)
[2024-03-14 07:58] LABS: Creatinine Urine, Random 226 mg/dL (28-217); Microalbum Creatinine Ratio Ur 9 mg/dL (0-20); Microalbumin Random Urine 2 ug/dL (0-20)
[2024-03-14 07:58] LABS: Estmated Average Glucose 128; Hemoglobin A1C 6.1 % (4.0-6.0)
== END 2024-03-14 06:47 | disposition home or self-care (01) ==
LOC: LAB 06:49
PROVIDERS: Internal Medicine; PCP Family Medicine Adult Medicine; Visit Provider Family Medicine Adult Medicine
DX: E11.59 Type 2 diabetes mellitus with other circulatory complications (principal); Z79.4 Long term (current) use of insulin; E78.2 Mixed hyperlipidemia
CPT/HCPCS: 36415; 80053; 80061; 82044; 83036

== ENCOUNTER 2024-04-16 00:43 | Inpatient (IN) | payer BC, SELFPAY ==
[2024-04-16] VITALS (44 sets, daily range): BP systolic 86–207; BP diastolic 49–129; PULSE 61–111; RESP 13–28; TEMP 36.6–37.1; O2SAT 93–100; BMI 31.8; BMI 30.8
--- NOTE | 2024-04-16 01:24 | ED_ITS ---
HPI - Nausea/Vomiting/Diarrhea 2 General: Chief complaint: Nausea/Vomiting/Diarrhea Stated complaint: n/v 4+days weakness Time Seen by Provider: 04/16/24 00:58 History of Present Illness: Patient presents to the ER with complaints of nausea vomiting over the last 4 days. Patient states she has not been able keep any food down but has been able to keep some water down. She says she does get this way very often nor she had any sick contacts. Patient denies any abdominal pain. Patient is an insulin- dependent diabetic. Related Data Home Medications Medication Instructions Recorded Confirmed acarbose 25 mg tablet 25 mg PO TID 11/01/23 03/20/24 Previous Rx's Medication Instructions Recorded pen needle, diabetic 32 gauge x #360 ea 04/03/2204/22 (BD Ultra-Fine Micro Pen Needle) fluticasone propionate 50 2 spray intranasal DAILY #16 grams 04/30/22 mcg/actuation nasal spray,suspension (Flonase Allergy Relief) flash glucose sensor (FreeStyle #4 kits 02/12/23 Adelina 2 Sensor kit) amlodipine 10 mg tablet 10 mg PO DAILY #90 tabs 08/18/23 escitalopram oxalate 20 mg tablet 20 mg PO DAILY anxiety #90 tabs 10/28/23 promethazine 25 mg tablet 25 mg PO Q6H PRN nausea and 11/01/23 vomiting #20 tabs metoclopramide HCl 10 mg tablet 10 mg PO BID PRN nausea and 11/17/23 (Reglan) vomiting #60 tabs bupropion HCl 300 mg 24 hr tablet, 300 mg PO [facility] #90 12/09/23 extended release tabs insulin glargine 100 unit/mL (3 See Rx Instructions .Route 12/09/23 mL) subcutaneous pen (Basaglar .COMPLEX #15 mL KwikPen U-100 Insulin) insulin aspart U-100 100 unit/mL See Rx Instructions .Route 12/10/23 (3 mL) subcutaneous pen (Novolog .COMPLEX #15 mL FlexPen U-100 Insulin aspart) blood-glucose sensor (FreeStyle #2 ea 02/09/24 Adelina 3 Plus Sensor device) hydroxyzine HCl 25 mg tablet 25 mg PO Q6H PRN anxiety episodes 02/21/24 #120 tabs spironolactone 25 mg tablet 25 mg PO DAILY #90 tabs 03/06/24 (Aldactone) Allergies Allergy/AdvReac Type Severity Reaction Status Date / Time No Known Allergies Allergy Verified 03/20/24 08:05 Review of Systems 2 General: Reports: 10 or more systems reviewed and unremarkable except in HPI and below PFSH ED 2 PFSH: Medical History Hiatal hernia with GERD Anxiety and depression Obesity (BMI 30.0-34.9) Type 2 diabetes mellitus Hypertension Surgical History No significant past surgical history Family History Father Diabetes Mother Diabetes Social History Smoking and tobacco/nicotine status: never used tobacco/nicotine Alcohol intake: never Substance/Drug Use: never Adopted: No Caregiver/support person: No Lives independently: Yes Marital status: Single Current occupational status: employed 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 Special hilaria needs: No Agree to transfusion: Yes Physical Exam 2 Const: COMMON NORMALS: no acute distress, average body habitus, patient oriented x3, no limitations, healthy appearing, alert and well nourished Neck/C-Spine: COMMON NORMALS: no JVD Chest: COMMONS NORMALS: normal inspection of the chest and normal palpation of entire chest wall Resp: COMMON NORMALS: normal respiratory effort, No retractions, No use of accessory muscles and clear to auscultation bilaterally AUSCULTATION: clear to auscultation bilaterally Cardio: COMMON NORMALS: no JVD, regular rate, regular rhythm, S1 normal heart sound present, S2 normal heart sound present, No gallops present (Cardio), No clicks present (Cardio), No murmurs present (Cardio) and No rub (Cardio) R ATE: regular rate RHYTHM: regular rhythm HEART SOUNDS: S1 normal heart sound present and S2 normal heart sound present GI: COMMON NORMALS: Normal to inspection, nondistended, normoactive bowel sounds present, Soft to palpation, non-tender, No hepatosplenomegaly present and no masses PALPATION: Yes Soft to palpation and Yes No hepatosplenomegaly present Neuro: COMMON NORMALS: patient oriented x3 SENSORIUM/ORIENTATION: Yes alert Course 2 Vital Signs: Vital signs: Vital Signs Temperature 98 F 04/16/24 00:48 Pulse Rate 111 H 04/16/24 00:48 Respiratory Rate 18 04/16/24 00:48 Blood Pressure 155/100 04/16/24 00:48 Pulse Oximetry 99 04/16/24 00:48 MDM - Nausea/Vomiting/Diarrhea Medical Decision Making Patient presents to the ER with severe nausea vomiting and retching. Patient has a white count of 20,000, positive ketones, she did receive 2 L normal saline, Zofran 8 mg, Haldol 5 mg, lorazepam 2 mg, these was discussed with the hospitalist. Patient be placed in ICU for DKA. Medical Records I reviewed the patient's medical records. Lab Data I reviewed the patient's lab results. 04/16/24 01:14 04/16/24 01:14 Laboratory Results WBC 20.29 10^3/uL (3.29-11.43) H 04/16/24 01:14 RBC 5.57 10^6/uL (3.85-5.65) 04/16/24 01:14 Hgb 16.40 g/dL (11.27-16.99) 04/16/24 01:14 Hct 47.6 % (36-47) H 04/16/24 01:14 MCV 85.5 fl (85-98) 04/16/24 01:14 MCH 29.4 pg (27-33) 04/16/24 01:14 MCHC 34.5 g/dL (30-55) 04/16/24 01:14 RDW 12.2 % (12.1-15.1) 04/16/24 01:14 Plt Count 502 10^3/cmm (157-399) H 04/16/24 01:14 MPV 10.7 fL (7.4-10.4) H 04/16/24 01:14 Neut % (Auto) 85.4 % 04/16/24 01:14 Lymph % (Auto) 9.5 % 04/16/24 01:14 [place] % (Auto) 4.3 % 04/16/24 01:14 Eos % (Auto) 0.1 % 04/16/24 01:14 Baso % (Auto) 0.2 % 04/16/24 01:14 Neut # (Auto) 17.31 10^3/uL (1.8-7.7) H 04/16/24 01:14 Lymph # (Auto) 1.9 10^3/uL (0.8-4.8) 04/16/24 01:14 [place] # (Auto) 0.9 10^3/uL (0.2-0.9) 04/16/24 01:14 Eos # (Auto) 0.0 10^3/uL (0.0-0.8) 04/16/24 01:14 Baso # (Auto) 0.0 10^3/uL (0.0-0.1) 04/16/24 01:14 Nucleated RBC % (auto) 0 % 04/16/24 01:14 Nucleated RBCs # 0.0 /100WBC 04/16/24 01:14 Specimen Type Arterial 04/16/24 02:23 Sample Site Brachial, right 04/16/24 02:23 ABG pH 7.36 (7.35-7.45) 04/16/24 02:23 ABG pCO2 29.8 mmHg (35-45) L 04/16/24 02:23 ABG pO2 91.3 mmHg (80.0-100.0) 04/16/24 02:23 ABG PO2/FiO2 Ratio 434 04/16/24 02:23 ABG HCO3 17.0 mmol/L (22-26) L 04/16/24 02:23 ABG O2 Saturation 97.1 04/16/24 02:23 ABG Base Excess -7.1 mmol/L (-2.0-2.0) L 04/16/24 02:23 Jose Test N/a 04/16/24 02:23 A-a O2 Gradient 2.4 mmHg (5-10) L 04/16/24 02:23 Hematocrit 45.2 % (37-47) 04/16/24 02:23 Hgb O2 Saturation 95.3 % (95-100) 04/16/24 02:23 Carboxyhemoglobin 0.8 %THgb (0.4-20.1) 04/16/24 02:23 Methemoglobin 1.1 % (0.4-1.5) 04/16/24 02:23 Total Hemoglobin 14.7 g/dL (12-16) 04/16/24 02:23 Sodium 134.0 mmol/L (131-143) 04/16/24 02:23 Potassium 3.7 mmol/L (3.5-5.0) 04/16/24 02:23 Glucose 184.0 mg/dL (70-115) H 04/16/24 02:23 Ionized Calcium 1.2 mmol/L (1.1-1.4) 04/16/24 02:23 O2 Delivery Device Room air 04/16/24 02:23 FiO2 21.0 % 04/16/24 02:23 Floodplain Manager ID [email or web address] 04/16/24 02:23 Sodium 134 mmol/L (136-145) L 04/16/24 01:14 Potassium 4.0 mmol/L (3.5-5.1) 04/16/24 01:14 Chloride 92 mmol/L (98-107) L 04/16/24 01:14 Carbon Dioxide 17 mmol/L (22-29) L 04/16/24 01:14 Anion Gap 29.0 (5-19) H 04/16/24 01:14 BUN 19 mg/dL (6-20) 04/16/24 01:14 Creatinine 0.7 mg/dL (0.5-0.9) 04/16/24 01:14 GFR Calculation 90.1 mL/min (90-130) 04/16/24 01:14 Glucose 223 mg/dL (65-115) H 04/16/24 01:14 Calculated Osmolality 287 mOsm/kg (285-295) 04/16/24 01:14 Calcium 9.8 mg/dL (8.5-10.5) 04/16/24 01:14 Total Bilirubin 0.7 mg/dL (0.15-1.2) 04/16/24 01:14 AST 31 U/L (0-32) 04/16/24 01:14 ALT 18 U/L (0-33) 04/16/24 01:14 Alkaline Phosphatase 108 U/L (35-105) H 04/16/24 01:14 Total Protein 8.7 g/dL (6.6-8.7) 04/16/24 01:14 Albumin 4.3 g/dL (3.5-5.2) 04/16/24 01:14 Globulin 4.4 g/dL (1.3-4.6) 04/16/24 01:14 Serum Ketones Positive (Negative) H 04/16/24 01:14 No radiology studies performed this visit Discharge Plan Discharge Patient Disposition: Admitted As Inpatient Clinical Impression: DKA (diabetic ketoacidosis), Gastroenteritis Condition: Stable Coding Level of Care Code ED Operation Manager for Luisito Colmenares
[2024-04-16] MEDS: LORazepam 2 mg/mL INJ 1 mL IVP (01:30)
[2024-04-16] MEDS: haloperidol inj 5 mg/mL INJ 1 mL IVP (01:30)
[2024-04-16 01:36] LABS: Basophils % 0.2 %; Eosinophils % 0.1 %; Hematocrit 47.6 % (36-47); Lymphocytes # 1.9 10^3/uL (0.8-4.8); Lymphocytes % 9.5 %; Mean Corpuscular HGB Conc 34.5 g/dL (30-55); Mean Corpuscular Hemoglobin 29.4 pg (27-33); Mean Corpuscular Volume 85.5 fl (85-98); Mean Platelet Volume 10.7 fL (7.4-10.4); Monocytes # 0.9 10^3/uL (0.2-0.9); Monocytes % 4.3 %; Neutrophils # 17.31 10^3/uL (1.8-7.7); Neutrophils % 85.4 %; Nucleated Red Blood Cells % 0 %; Platelet Count 502 10^3/cmm (157-399); Red Blood Count 5.57 10^6/uL (3.85-5.65); Red Cell Distribution Width 12.2 % (12.1-15.1); White Blood Count 20.29 10^3/uL (3.29-11.43)
[2024-04-16 01:42] LABS: Ketone (Acetest) Serum Positive (Negative)
[2024-04-16] MEDS: ondansetron 2 mg/ML SDV 2 mL 8 MG IVP (01:45)
[2024-04-16] MEDS: sodium chloride 0.9% 1,000 ML 999 ML IV ×2 (01:45→03:42)
[2024-04-16 01:48] LABS: Alanine Aminotransferase 18 U/L (0-33); Albumin Level 4.3 g/dL (3.5-5.2); Alkaline Phosphatase 108 U/L (35-105); Aspartate Amino Transferase 31 U/L (0-32); Blood Urea Nitrogen 19 mg/dL (6-20); Calcium 9.8 mg/dL (8.5-10.5); Carbon Dioxide 17 mmol/L (22-29); Chloride 92 mmol/L (98-107); Creatinine Clr Calc Pharmacy 101.6169; Globulin 4.4 g/dL (1.3-4.6); Glomerular Filtration Rate 90.1 mL/min (90-130); Glucose 223 mg/dL (65-115); Osmolality Calculated 287 mOsm/kg (285-295); Sodium 134 mmol/L (136-145); Total Bilirubin 0.7 mg/dL (0.15-1.2); Total Protein 8.7 g/dL (6.6-8.7)
[2024-04-16 02:39] LABS: ABG PCO2 29.8 mmHg (35-45); ABG PH Result 7.36 (7.35-7.45); Alveolar-Arterial Oxygen Gradi 2.4 mmHg (5-10); Arterial Blood Gas Hematocrit 45.2 % (37-47); Base Excess ABG -7.1 mmol/L (-2.0-2.0); Blood Gas Operator Identificat JDB; Blood Gas Sample Site Brachial, right; Blood Gas Sample Type Arterial; Carboxyhemoglobin 0.8 %THgb (0.4-20.1); HGB O2 Sat 95.3 % (95-100); Ionized Calcium Level - ABG 1.2 mmol/L (1.1-1.4); Methemoglobin 1.1 % (0.4-1.5); Oxygen Device ROOM AIR; Oxygen Saturation ABG 97.1; PO2 ABG 91.3 mmHg (80.0-100.0); PO2 FiO2 Ratio Arterial Blood 434; Potassium Level - ABG 3.7 mmol/L (3.5-5.0); Total Hemoglobin 14.7 g/dL (12-16)
--- NOTE | 2024-04-16 03:00 | P.HP_ITS ---
Providers/Chief Complaint 2 Admitting Physician: Soo Tobar MD Primary Care Provider: Jayson Blackburn MD Chief Complaint: n/v 4+days weakness History of Present Illness Althea Higuera is a 48 year old female HTN, HLD, IDDM2, Anxiety & Depression who presents to the ED on 04/16/2204 w/ complaints of intractable n/v. On and , she felt malaise. By the night of 04/13, she started having episodes of bilious green & yellow emesis and with time the emesis became brown. She has been vomiting since 04/13 during every waking moment. She endorses feeling hot and cold during her episodes of emesis and diaphoresis, that makes her cold and have rigors. She complains of leg cramps. She denies abd pain prior to the beginning of her episodes of emesis on 04/13, but states that she does have abdominal pain, which she attributes to the process of vomiting. She denies any fevers, visual disturbances, syncope, diarrhea, melena, hematochezia, hematemesis, CP, palpitations, cough. She endorses headaches, dizziness, light headedness, SOB due to emesis, She denies trying any new foods. She has not left [place] this year. In the ED, she was Hypertensive, tachypneic, w/ a leukocytosis, an AGAP metabolic acidosis, a hyperglcyemia of 223, and serum Ketones. She has She was given 2L NS bolus, 8mg IV Zofran, and Ativan. She was admitted to the ICU for concerns for diabetic ketoacidosis and Sepsis Review of Systems 2 Const: Reports: fever(s), fatigue, malaise and diaphoresis; Denies: chills Eyes: Denies: change in vision ENMT: Reports: nasal discharge and other (positive sore throat from vomiting); Denies: odynophagia, ear or mastoid pain, ear discharge or nasal congestion Card: Denies: chest pain, palpitations, lightheadedness or syncope Resp: Reports: dyspnea and other (no cough); Denies: wheezing GI: Reports: abdominal pain, nausea and vomiting; Denies: diarrhea, constipation, hematochezia or melena : Reports: hematuria (but she is on her menstrual cycle); Denies: difficulty voiding, dysuria, urinary frequency or urinary urgency Musc: Reports: muscle cramps (legs) Skin/Breast: Denies: rash or new lesions Neuro: Reports: headache(s) and dizziness Psych: Denies: anxiety, depression, suicidal ideation or homicidal ideation Endo: Reports: cold intolerance; Denies: heat intolerance Ray/Lymph: Denies: easy bruising or easy bleeding All/Imm: Denies: food intolerance Medications/Allergies Home Medications Medication Instructions Recorded Confirmed Last Taken Type pen needle, diabetic 32 gauge x #360 ea 04/03/22 04/16/24 Unknown Rx 1/4 (BD Ultra-Fine Micro Pen Needle) flash glucose sensor (FreeStyle #4 kits 02/12/23 04/16/24 Unknown Rx Adelina 2 Sensor kit) amlodipine 10 mg tablet 10 mg PO DAILY #90 tabs 08/18/23 04/16/24 04/12/24 10:00 Rx escitalopram oxalate 20 mg tablet 20 mg PO DAILY anxiety #90 tabs 10/28/23 04/16/24 04/12/24 10:00 Rx acarbose 25 mg tablet 25 mg PO TID 11/01/23 04/16/24 04/12/24 10:00 History promethazine 25 mg tablet 25 mg PO Q6H PRN nausea and 11/01/23 04/16/24 04/15/24 10:00 Rx vomiting #20 tabs metoclopramide HCl 10 mg tablet 10 mg PO BID PRN nausea and 11/17/23 04/16/24 04/12/24 10:00 Rx (Reglan) vomiting #60 tabs bupropion HCl 300 mg 24 hr tablet, 300 mg PO [facility] mental health #90 12/09/23 04/16/24 04/12/24 10:00 Rx extended release tabs insulin glargine 100 unit/mL (3 See Rx Instructions .Route 12/09/23 04/16/24 Unknown Rx mL) subcutaneous pen (Basaglar .COMPLEX #15 mL KwikPen U-100 Insulin) insulin aspart U-100 100 unit/mL See Rx Instructions .Route 12/10/23 04/16/24 Unknown Rx (3 mL) subcutaneous pen (Novolog .COMPLEX #15 mL FlexPen U-100 Insulin aspart) blood-glucose sensor (FreeStyle #2 ea 02/09/24 04/16/24 Unknown Rx Adelina 3 Plus Sensor device) hydroxyzine HCl 25 mg tablet 25 mg PO Q6H PRN anxiety episodes 02/21/24 04/16/24 Unknown Rx #120 tabs spironolactone 25 mg tablet 25 mg PO DAILY #90 tabs 03/06/24 04/16/24 04/12/24 10:00 Rx (Aldactone) Allergies Allergy/AdvReac Type Severity Reaction Status Date / Time No Known Allergies Allergy Verified 03/20/24 08:05 PFSH Acute 2 PFSH: Medical History (Updated 04/16/24 @ 09:19 by Soo Tobar MD) Hyperlipidemia Hiatal hernia with GERD Anxiety and depression Obesity (BMI 30.0-34.9) Type 2 diabetes mellitus Hypertension Surgical History No significant past surgical history Family History Father Diabetes Mother Diabetes Social History Smoking and tobacco/nicotine status: never used tobacco/nicotine Alcohol intake: never Substance/Drug Use: never Adopted: No Caregiver/support person: No Lives independently: Yes Marital status: Single Current occupational status: employed 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 Special hilaria needs: No Agree to transfusion: Yes Vitals/I&O/Wt Last Vital Signs Temp 98 F 04/16/24 00:48 Pulse 111 H 04/16/24 00:48 Resp 18 04/16/24 00:48 BP 155/100 04/16/24 00:48 Pulse Ox 99 04/16/24 00:48 04/15/24 04/15/24 04/16/24 14:59 22:59 06:59 Intake Total 0 / 0 Balance 0 / 0 Weight last 48 hrs Weight 81.647 kg Physical Exam 2 Const: GENERAL APPEARANCE: cooperative and comfortable O RIENTATION/CONSCIOUSNESS: Yes awake, Yes oriented to person and Yes oriented to place HENMT: HEAD & SCALP: normocephalic and atraumatic NOSE: Normal external nose present EXTERNAL EAR: Yes external ears normal MOUTH: Normal oral and palatal mucosa present THROAT: posterior oropharynx normal Eye: VISUAL ACUITY: Yes acuity normal and Yes visual acuity right eye C ONJUNCTIVA: Yes conjunctivae normal PUPIL: Yes Equal, round and reactive pupils present EOM: No EOM abnormal Neck/C-Spine: GENERAL: Yes normal visual inspection and Yes trachea midline THYROID: Thyroid normal CAROTIDS: No bruit CERVICAL SPINE: Yes cervical ROM normal Lymph: OTHER: No cervical or supraclavicular LAD Resp: OTHER: CTAB with no w/r/r Cardio: OTHER: RRR, no m/r/g or clicks GI: OTHER: BS+, RUQ tenderness, Epigastric tenderness, Rebound tenderness in the LLQ and hypogastrium, no guarding or rigidity. No hepatosplenomegaly. Extremity: NARRATIVE EXTREMITY EXAM: Diabetic foot ulcer on plantar aspect R. 5th digit w/ abscess. Raised induration on the dorsal aspect of the L. foot -patient states that the induration occurred because she sleepwalks, and likely hit her foot on her table. GENERAL: No clubbing and No cyanosis Neuro: COMMON NORMALS: patient oriented x3 and CN's II-XII intact bilaterally CRANIAL NERVES: Yes CN normal except as noted SPEECH: speech normal S ENSORY EXAM: No sensory level loss detected MOTOR EXAM: 5/5 motor strength present throughout and Normal motor muscle tone present throughout Psych: APPEARANCE: Yes grossly normal ATTITUDE: Yes calm and Yes engaged ACTIVITY/MOTOR BEHAVIOR: Yes appropriate eye contact SPEECH: Yes normal speech MOOD & AFFECT: Yes euthymic mood THOUGHT PROCESS: Normal thought process present THOUGHT CONTENT: Yes Normal thought content present A TTENTION/CONCENTRATION: Yes attention grossly intact MEMORY/COGNITION: Yes memory grossly intact Skin: NARRATIVE SKIN EXAM: See the extremity section for noted abnormalities. GENERAL SKIN EXAM: no rashes or lesions noted Data 04/16/24 01:14 04/16/24 01:14 Other Labs: Laboratory Results WBC 20.29 10^3/uL (3.29-11.43) H 04/16/24 01:14 RBC 5.57 10^6/uL (3.85-5.65) 04/16/24 01:14 Hgb 16.40 g/dL (11.27-16.99) 04/16/24 01:14 Hct 47.6 % (36-47) H 04/16/24 01:14 MCV 85.5 fl (85-98) 04/16/24 01:14 MCH 29.4 pg (27-33) 04/16/24 01:14 MCHC 34.5 g/dL (30-55) 04/16/24 01:14 RDW 12.2 % (12.1-15.1) 04/16/24 01:14 Plt Count 502 10^3/cmm (157-399) H 04/16/24 01:14 MPV 10.7 fL (7.4-10.4) H 04/16/24 01:14 Neut % (Auto) 85.4 % 04/16/24 01:14 Lymph % (Auto) 9.5 % 04/16/24 01:14 [place] % (Auto) 4.3 % 04/16/24 01:14 Eos % (Auto) 0.1 % 04/16/24 01:14 Baso % (Auto) 0.2 % 04/16/24 01:14 Neut # (Auto) 17.31 10^3/uL (1.8-7.7) H 04/16/24 01:14 Lymph # (Auto) 1.9 10^3/uL (0.8-4.8) 04/16/24 01:14 [place] # (Auto) 0.9 10^3/uL (0.2-0.9) 04/16/24 01:14 Eos # (Auto) 0.0 10^3/uL (0.0-0.8) 04/16/24 01:14 Baso # (Auto) 0.0 10^3/uL (0.0-0.1) 04/16/24 01:14 Nucleated RBC % (auto) 0 % 04/16/24 01:14 Nucleated RBCs # 0.0 /100WBC 04/16/24 01:14 Specimen Type Arterial 04/16/24 02:23 Sample Site Brachial, right 04/16/24 02:23 ABG pH 7.36 (7.35-7.45) 04/16/24 02:23 ABG pCO2 29.8 mmHg (35-45) L 04/16/24 02:23 ABG pO2 91.3 mmHg (80.0-100.0) 04/16/24 02:23 ABG PO2/FiO2 Ratio 434 04/16/24 02:23 ABG HCO3 17.0 mmol/L (22-26) L 04/16/24 02:23 ABG O2 Saturation 97.1 04/16/24 02:23 ABG Base Excess -7.1 mmol/L (-2.0-2.0) L 04/16/24 02:23 Jose Test N/a 04/16/24 02:23 A-a O2 Gradient 2.4 mmHg (5-10) L 04/16/24 02:23 Hematocrit 45.2 % (37-47) 04/16/24 02:23 Hgb O2 Saturation 95.3 % (95-100) 04/16/24 02:23 Carboxyhemoglobin 0.8 %THgb (0.4-20.1) 04/16/24 02:23 Methemoglobin 1.1 % (0.4-1.5) 04/16/24 02:23 Total Hemoglobin 14.7 g/dL (12-16) 04/16/24 02:23 Sodium 134.0 mmol/L (131-143) 04/16/24 02:23 Potassium 3.7 mmol/L (3.5-5.0) 04/16/24 02:23 Glucose 184.0 mg/dL (70-115) H 04/16/24 02:23 Ionized Calcium 1.2 mmol/L (1.1-1.4) 04/16/24 02:23 O2 Delivery Device Room air 04/16/24 02:23 FiO2 21.0 % 04/16/24 02:23 Facility Environmental Technician ID [id number] 04/16/24 02:23 Sodium 134 mmol/L (136-145) L 04/16/24 01:14 Potassium 4.0 mmol/L (3.5-5.1) 04/16/24 01:14 Chloride 92 mmol/L (98-107) L 04/16/24 01:14 Carbon Dioxide 17 mmol/L (22-29) L 04/16/24 01:14 Anion Gap 29.0 (5-19) H 04/16/24 01:14 BUN 19 mg/dL (6-20) 04/16/24 01:14 Creatinine 0.7 mg/dL (0.5-0.9) 04/16/24 01:14 GFR Calculation 90.1 mL/min (90-130) 04/16/24 01:14 Glucose 223 mg/dL (65-115) H 04/16/24 01:14 POC Glucose 115 mg/dL (70-110) H 04/16/24 08:13 Calculated Osmolality 287 mOsm/kg (285-295) 04/16/24 01:14 Calcium 9.8 mg/dL (8.5-10.5) 04/16/24 01:14 Total Bilirubin 0.7 mg/dL (0.15-1.2) 04/16/24 01:14 AST 31 U/L (0-32) 04/16/24 01:14 ALT 18 U/L (0-33) 04/16/24 01:14 Alkaline Phosphatase 108 U/L (35-105) H 04/16/24 01:14 Total Protein 8.7 g/dL (6.6-8.7) 04/16/24 01:14 Albumin 4.3 g/dL (3.5-5.2) 04/16/24 01:14 Globulin 4.4 g/dL (1.3-4.6) 04/16/24 01:14 Serum Ketones Positive (Negative) H 04/16/24 01:14 A&P Assessment and plan (1) Anxiety and depression: (2) Type 2 diabetes mellitus: Qualifiers: Diabetes mellitus snf insulin use: with snf use Diabetes mellitus complication status: with circulatory complication Diabetes mellitus complication detail: with other circulatory complications Qualified Code(s): E 11.59 - Type 2 diabetes mellitus with other circulatory complications; Z79.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 In the ED, she was Hypertensive, tachypneic, w/ a leukocytosis, an AGAP metabolic acidosis, a hyperglcyemia of 223, and serum Ketones. She was given 2L NS bolus, 8mg IV Zofran, and Ativan. She was admitted to the ICU for concerns for diabetic ketoacidosis and Sepsis. #Sepsis - GI source vs her R. foot diabetic ulcer w/ abscess - F/u BCx, MRI of R. foot, ESR, CRP, Ct abd/pelvis w/ contract. - Vanc/Zosyn - Start NS IVF at 100cc/hr continuous #AGAP Metabolic acidosis #Diabetic Ketoacidosis - F/u labs and start insulin - F/u betahydroxybutyrate # Diabetic foot ulcer on the R. 5th digit w/ abscess -MRI of R. foot, ESR, CRP. - On Vanc Zosyn #Intractable N/V - Zofran prn - F/u CT scan. #Anxiety/Depression #HTN #HLD - NPO at this time. Resume home meds prn DVT ppx: Lovenox GI ppx: Pantoprazole Attestations 2 Medical Necessity Statement*: Patient is to be hospitalized for greater than 2 midnights for sepsis, due to likely her diabetic foot ulcer with abscess; intractable nausea vomiting, anion gap metabolic acidosis likely due to ketoacidosis. Critical Care Time: The high probability of a clinically significant, sudden or life threatening deterioration of the patient's [] system(s) required my full and direct attention, intervention and personal management. The critical care time is as shown. 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
--- NOTE | 2024-04-16 03:59 | PC.NURSE ---
Rounded on pt. This RN resumed care of this pt now after being 1:1 with another critical pt. Pt resting quietly. Reports no pain at this time. Still nauseated. Not actively vomiting. VSS. REsp even/unlabored. Skin w/p/d
[2024-04-16] MEDS: pantoprazole 40 mg SDV IVP ×2 (07:42→20:45)
[2024-04-16 08:17] LABS: Glucose Point of Care 115 mg/dL (70-110)
[2024-04-16] MEDS: sodium chloride 0.9% 1,000 ML 100 ML IV ×2 (08:18→18:24)
[2024-04-16] MEDS: vancomycin 2,000 MG/400 ML PIGGYBACK 200 MG IV (08:26)
[2024-04-16] MEDS: enoxaparin 40 mg/0.4 mL Syringe SUBCUT (08:29)
--- NOTE | 2024-04-16 08:42 | XRR_ITS ---
PROCEDURE INFORMATION: Exam: XR Right Foot Exam date and time: 04/16/2024 1:24 PM Age: 48 years old Clinical indication: Other: Possible osteo TECHNIQUE: Imaging protocol: Radiologic exam of the right foot. Views: 1 or 2 views. COMPARISON: No relevant prior studies available. FINDINGS: Bones/joints: There are healed fractures of the mid shafts of the 3rd and 4th metatarsals. Indistinct lucent appearance of the 5th metatarsal head is present. Moderate subcortical cystic changes are noted at the base of the 1st metatarsal and the adjacent distal aspect of the medial cuneiform and to a lesser extent at the 2nd tarsometatarsal joint. Moderate joint space narrowing and osteophyte formation at the 2nd metatarsophalangeal joint is noted. Mild osteophyte formation at the midfoot articulations is present. Soft tissues: Normal. XR/XR foot RT 2V [id number] IMPRESSION: 1. There is an indistinct and lucent appearance of the 5th metatarsal head which can be associated with osteomyelitis in the proper clinical setting. 2. Healed fractures of the 3rd and 4th metatarsals. 3. 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 4. Cystic changes at the 1st and 2nd tarsometatarsal joints are noted which can be related to primary osteoarthritis. No definite erosive changes.
--- NOTE | 2024-04-16 08:42 | ECG_ITS ---
[employer] technology[facility] Test Date: 2024-04-16 Pat Name: Althea Higuera Department: Room: [facility] Gender: Female Legal Research Analyst: : 1975 Requested By: Santos Coughlin Order Number: [id number] Ronni MD: Denny Alejandra M.D. Measurements Intervals [place] Rate: 82 P: 41 SC: 144 QRS: -7 QRSD: 83 T: 25 QT: 375 QTc: 441 Interpretive Statements SINUS RHYTHM Compared to ECG 11/01/2023 13:27:22 ST (T wave) deviation no longer present Electronically Signed On 04-16-2024 20:11:47 MOTORCOACH DRIVER by Denny Alejandra M.D. [email or web address]
--- NOTE | 2024-04-16 08:42 | XRR_ITS ---
PROCEDURE INFORMATION: Exam: XR Chest Exam date and time: 04/16/2024 1:23 PM Age: 48 years old Clinical indication: Condition or disease; Lung condition and disease; Copd TECHNIQUE: Imaging protocol: Radiologic exam of the chest. Views: 1 view. COMPARISON: CR XR chest 1V portable [id number] 11/01/2023 1:21 PM FINDINGS: Lungs: The lungs are mildly hypoinflated. No consolidation. Pleural spaces: Unremarkable. No pleural effusion. No pneumothorax. Heart/Mediastinum: Unremarkable. No cardiomegaly. Bones/joints: Unremarkable. XR/XR chest 1V portable [id number] IMPRESSION: No acute findings.
--- NOTE | 2024-04-16 08:42 | CTR_ITS ---
PROCEDURE INFORMATION: Exam: CT Abdomen And Pelvis With Contrast Exam date and time: 04/16/2024 1:33 PM Age: 48 years old Clinical indication: Abdominal pain; Additional info: Ruq, epigastic, lower quadrant abdominal pain TECHNIQUE: Imaging protocol: Computed tomography of the abdomen and pelvis with contrast. Radiation optimization: All CT scans at this facility use at least one of these dose optimization techniques: automated exposure control; mA and/or kV adjustment per patient size (includes targeted exams where dose is matched to clinical indication); or iterative reconstruction. Contrast material: [id number]; Contrast volume: 70 ml; Contrast route: INTRAVENOUS (IV); COMPARISON: CT abdomen pelvis wo con [id number] 11/01/2023 1:51 PM, CT abdomen and pelvis 09/07/2022 RADIATION DOSE METRICS: Total DLP (mGy-cm): 803.06 FINDINGS: Limitations: Motion artifact. Lungs: Minimal dependent streaky density in the right lower lobe is identified, consistent with atelectasis or scarring. Diaphragm: A small hiatal hernia is noted, with possible mild circumferential esophageal wall thickening on series 3, image 10. This appearance may be exaggerated by mild motion artifact. Liver: Normal. No mass. Gallbladder and biliary ducts: Small stones layering in the gallbladder. Pancreas: Normal. No ductal dilation. Spleen: Normal. No splenomegaly. Adrenal glands: Normal. No mass. Kidneys and ureters: A nonobstructing 2 mm stone in the superior pole of the right kidney is present. Within the superior pole of the left kidney, a rounded focus of low density measuring 8 mm on series 3, image 34 is similar compared with 09/07/2022, too small to characterize. Stomach and bowel: The wall of the stomach is not well assessed secondary to incomplete distension. No definite wall thickening or focal mass is identified. Colonic diverticula are identified. Appendix: No evidence of appendicitis. Intraperitoneal space: Unremarkable. No free air. No significant fluid collection. Vasculature: Mild atherosclerotic changes within the abdomen and pelvis are noted. Lymph nodes: Unremarkable. No enlarged lymph nodes. Urinary bladder: Unremarkable as visualized. Reproductive: An ovoid region of gas in the vagina likely represents the presence of a tampon. Bones/joints: The bones appear demineralized. There is mild diffuse vertebral body spondylosis. No acute fracture. Soft tissues: Unremarkable. CT/CT abdomen pelvis w con* [id number] IMPRESSION: 1. No acute abdominal or pelvic findings. 2. A small hiatal hernia is noted, with possible diffuse mild diffuse wall thickening of the distal esophagus. This appearance can be related to nondistention or esophagitis and may be exaggerated by motion artifact. A malignant etiology is less likely but cannot be entirely excluded. 3. Nonobstructing right nephrolithiasis. 4. Similar small low-density lesion in the superior pole of the left kidney compared with at least 09/07/2022, likely benign. No follow-up is necessary. 5. Cholelithiasis. 6. Colonic diverticulosis, without evidence of diverticulitis. COMMENTS: Consistent with the [employer]'s Incidental Findings Committee white paper (J Am Denny Radiol 2018): Any incidental renal lesion less than 1 cm or classified as too small to characterize, or any incidental cystic renal lesion characterized as simple-appearing, is likely benign. No follow-up imaging is recommended for these lesions per consensus recommendations based on imaging criteria.
[2024-04-16] MEDS: ondansetron 2 mg/ML SDV 2 mL 4 MG IVP (08:59)
[2024-04-16 09:18] LABS: Basophils % 0.2 %; Hematocrit 38.9 % (36-47); Lymphocytes # 2.1 10^3/uL (0.8-4.8); Mean Corpuscular HGB Conc 33.7 g/dL (30-55); Mean Corpuscular Hemoglobin 29.2 pg (27-33); Mean Corpuscular Volume 86.6 fl (85-98); Mean Platelet Volume 10.5 fL (7.4-10.4); Monocytes # 0.9 10^3/uL (0.2-0.9); Monocytes % 5.6 %; Neutrophils # 13.21 10^3/uL (1.8-7.7); Neutrophils % 80.8 %; Nucleated Red Blood Cells % 0 %; Platelet Count 368 10^3/cmm (157-399); Red Blood Count 4.49 10^6/uL (3.85-5.65); Red Cell Distribution Width 12.3 % (12.1-15.1); White Blood Count 16.34 10^3/uL (3.29-11.43)
[2024-04-16 09:20] LABS: Erythrocyte Sedimentation Rate 20 mm/hr (0-15)
[2024-04-16] MEDS: amlodipine 10 mg Tablet PO (09:22)
[2024-04-16 09:31] LABS: INR 1.06 (0.8-1.2)
[2024-04-16] MEDS: escitalopram 10 mg Tablet 20 MG PO (09:39)
[2024-04-16] MEDS: buPROPion XL (24 HR) 300 mg Tablet PO (09:39)
[2024-04-16 09:58] LABS: Procalcitonin 0.14 ng/mL (0-0.5); Thyroid Stimulating Hormone 1.65 uIU/mL (0.27-4.20); Vitamin B12 1720 pg/mL (232-1245)
[2024-04-16 10:12] LABS: Alanine Aminotransferase 12 U/L (0-33); Albumin Level 3.6 g/dL (3.5-5.2); Alkaline Phosphatase 79 U/L (35-105); Aspartate Amino Transferase 14 U/L (0-32); Blood Urea Nitrogen 16 mg/dL (6-20); Calcium 8.7 mg/dL (8.5-10.5); Carbon Dioxide 20 mmol/L (22-29); Chloride 100 mmol/L (98-107); Chol HDL Ratio 3.91 mg/dL (0.0-4.40); Cholesterol 133 mg/dL (0-200); Creatinine Clr Calc Pharmacy 139.9138; Globulin 3.3 g/dL (1.3-4.6); Glomerular Filtration Rate 132.8 mL/min (90-130); Glucose 122 mg/dL (65-115); HDL Cholesterol 34 mg/dL (60-100); Iron 80 ug/dL (37-145); LDL Cholesterol Calculated 82 mg/dL (50-129); Magnesium 1.9 mg/dL (1.7-2.3); Osmolality Calculated 276 mOsm/kg (285-295); Percent Saturation 31.4 % (20-50); Sodium 132 mmol/L (136-145); Total Bilirubin 0.4 mg/dL (0.15-1.2); Total Iron Binding Capacity 254 mcg/dl; Total Protein 6.9 g/dL (6.6-8.7); Triglycerides 85 mg/dL (0-150); Unsaturated Iron Binding 174 ug/dL (112-347); VLDL Cholestrol Calculation 17 mg/dL (0-30)
[2024-04-16 10:12] LABS: Bilirubin Urine Negative (Negative); Blood Urine 1+ (Negative); Glucose Urine UA Negative (Normal); Ketones Urine 3+ (Negative); Leukocyte Esterase Urine Negative (Negative); Nitrate Urine Negative (Negative); Protein Urine Trace (Negative); Specific Gravity, Urine 1.021 (1.005-1.030); Urine Appearance Clear (CLEAR); Urine Color Yellow (Yellow)
[2024-04-16 10:17] LABS: Add Urine Microscopic? YES; Bacteria Urine None Seen /hpf; Hyaline Casts Urine 1.65 /lpf; RBC Urine 0-2 /hpf (0-2); Squamous Epithelial Cell Urine 0-5 /hpf (0-5); WBC Urine 0-5 /hpf (0-5)
[2024-04-16 10:18] LABS: Amphetamines Screen Urine Negative (Negative); Barbiturates Screen Urine Negative (Negative); Benzodiazepines Screen Urine Positive (Negative); Cocaine Screen Urine Negative (Negative); Opiate Screen Urine Negative (Negative); PCP Screen Urine Negative (Negative); THC Screen Urine Positive (Negative)
[2024-04-16] MEDS: piperacillin-tazobactam 3.375 GM in sodium chloride 0.9% (plus) 50 ML IV ×2 (10:35→18:33)
[2024-04-16 11:09] LABS: Glucose Point of Care 123 mg/dL (70-110)
--- NOTE | 2024-04-16 11:19 | PM.PN ---
Subjective Subjective: Admitted overnight with concerns for nausea and vomiting, unable to take her medications and oral diet. She was admitted to ICU with concerns for possible DKA and sepsis. Examination patient denies any nausea, vomiting. States she is feeling slightly better. States abdominal pain is better for now. Has remained hemodynamically stable and afebrile on room air. Denies of having any appetite. Denies of having any sick contacts. Vitals/I&O/Wt Last Vital Signs Temp 98.3 F 04/16/24 08:00 Pulse 87 04/16/24 10:00 Resp 19 H 04/16/24 10:00 BP 114/74 04/16/24 10:00 Pulse Ox 100 04/16/24 10:00 O2 Del Method Room Air 04/16/24 10:00 04/15/24 04/16/24 04/16/24 22:59 06:59 14:59 Intake Total 1999 / 1999 400 / 400 Balance 1999 / 1999 400 / 400 Weight last 48 hrs Weight 79 kg Weight 79 kg Weight 81.647 kg Physical Exam Narrative: General: No acute distress, AO x3 dehydrated, pallor present HEENT: PERRLA, pupils bilaterally equal and reactive Chest: Normal vesicular breath sounds, no added sounds, equal good air entry bilaterally CVS: S1-S2 regular, no murmurs, no tachycardia, no gallops, no rubs Abdomen: Soft, nontender, no organomegaly, bowel sounds present Neuro: No focal deficits, no facial deformity, AO x3, power 5/5 in all limbs Skin: OTHER: Data 04/16/24 08:30 04/16/24 08:30 Micro: Microbiology 04/16/24 09:45 Bacterial Antigens - Final Urine Kidney 04/16/24 03:46 Blood Culture - Preliminary Blood SPECIMEN COLLECTED 04/16/24 03:42 Blood Culture - Preliminary Blood SPECIMEN COLLECTED A&P Assessment and plan (1) Sepsis: SIRS: Leukocytosis, tachycardia, hypothermia present on admission Source: Cellulitis/osteomyelitis of the foot End organ damage: High anion gap metabolic acidosis Lactic acid not checked on admission Patient did receive full 30 mL/kg BW. Start on NS at 100 cc/h. Monitor blood pressures. Keep mean artery pressure 65 mmHg. Follow-up blood culture, urine culture. Check MRSA swab. Check procalcitonin trend, urine bacterial antigen. History of ESBL E. coli bacteremia in the past. Sensitive to Zosyn. Continue with vancomycin and Zosyn for now. If MRSA swab is negative will discontinue vancomycin. (2) Osteomyelitis of ankle or foot, right, acute: Concern for probe to bone on right fifth metatarsal region. Purulent discharge. ESR, CRP appreciated. ESR mildly elevated. CRP normal. Check CT foot with contrast for further evaluation. If any concerns for osteomyelitis/abscess collection will consult podiatry. Antibiotic as above. (3) Type 2 diabetes mellitus: History of controlled diabetes. A1c of 6.1 recently. As per patient as an outpatient her Lantus is being decreased gradually on a weekly basis by her PCP. Takes Lantus 2 units every other day, Humalog as needed. Concerns for high anion gap metabolic acidosis along with positive ketones on admission. Could be in setting of dehydration from nausea and vomiting. IV fluids with 100 cc/h for now. Hold off on insulin drip. Insulin at low-dose protocol sliding scale. Clear liquid diet. Qualifiers: Diabetes mellitus intermediate insulin use: with intermediate use Diabetes mellitus complication status: with circulatory complication Diabetes mellitus complication detail: with other circulatory complications Qualified Code(s): E11.59 - Type 2 diabetes mellitus with other circulatory complications; Z79.4 - termination clerk (current) use of insulin (4) Esophagitis: (5) Gastroenteritis: Nausea and vomiting most likely in setting of gastroenteritis. Patient denies of having any diarrhea. Appreciate CT abdomen pelvis with concerns for esophagitis/gastritis. Cholelithiasis. No ductal dilatation. LFTs within normal limits. Check COVID, flu swab. GI cocktail one-time. Protonix 40 mg twice daily, Carafate ACHS for now. Zofran as needed. (6) High anion gap metabolic acidosis: Repeat BMP in afternoon. (7) Diabetic foot ulcer: (8) Charcot's joint of foot due to diabetes: Bilateral, acute. Deformity on the left ankle. Will consult podiatry for further recommendations. Check CT foot without contrast. Physical therapy. (9) Hypertension: Goal blood pressure less than 140/90 mmHg. Blood pressure stable for now. Hold off on antihypertensive. Qualifiers: Hypertension type: primary hypertension Qualified Code(s): I10 - Essential (primary) hypertension Plan Restart other home medications including Celexa, bupropion. Full code Clear liquid carb consistent diet Protonix will be sufficient for PUD prophylaxis Lovenox for DVT prophylaxis. Transfer to [facility] floor. Attestations Medical Necessity Statement*: Requires further hospitalization for management of sepsis in setting of osteomyelitis of fifth metatarsal of right foot, Charcot's foot, nausea and vomiting in setting of esophagitis/gastroenteritis Other Coding Information Prolonged care (total time indicated above or notated here) (Interpreting CMP, ruling out DKA, interpreting CT images with concerns for osteomyelitis, consulting podiatry) Diagnoses Sepsis A41.9 Osteomyelitis of ankle or foot, right, acute M86.171 Type 2 diabetes mellitus with other circulatory complication, with long-term current use of insulin E11.59; Z79.4 Diabetes mellitus keno terminal operator insulin use: with keno terminal operator use Diabetes mellitus complication status: with circulatory complication Diabetes mellitus complication detail: with other circulatory complications Esophagitis K20.90 Gastroenteritis K52.9 High anion gap metabolic acidosis E87.29 Diabetic foot ulcer E11.621; L97.509 Charcot's joint of foot due to diabetes E11.610 Primary hypertension I10 Hypertension type: primary hypertension
[2024-04-16 11:20] LABS: MRSA PCR OZH (swab) NOT DETECTED (Not Detecte)
--- NOTE | 2024-04-16 11:22 | CTR_ITS ---
PROCEDURE INFORMATION: Exam: CT Right Lower Extremity, Foot Exam date and time: 04/16/2024 1:37 PM Age: 48 years old Clinical indication: Other: Possible abscess TECHNIQUE: Imaging protocol: CT of the right lower extremity with intravenous contrast was performed. Exam focused on the foot. Radiation optimization: All CT scans at this facility use at least one of these dose optimization techniques: automated exposure control; mA and/or kV adjustment per patient size (includes targeted exams where dose is matched to clinical indication); or iterative reconstruction. Contrast material: [id number]; Contrast volume: 50 ml; Contrast route: INTRAVENOUS (IV); COMPARISON: CR (LOW EXM, ) 04/16/2024 1:24 PM RADIATION DOSE METRICS: Total DLP (mGy-cm): 142.48 FINDINGS: Bones/joints: Destructive changes of the 5th metatarsal head are noted, with regions of erosive changes and fragmentation. There are healed fractures of the 3rd and 4th metatarsal shafts. No acute fractures identified. Moderate subcortical cystic and erosive changes are noted at the 1st tarsometatarsal joint. Moderate subcortical cystic changes at the 2nd tarsometatarsal joint and mild subcortical cystic changes at the 3rd tarsometatarsal joint are present. Mild posterior and plantar calcaneal enthesophyte formation is noted. Mild osteophyte formation is noted at the dorsal talonavicular joint. Moderate flattening and cortical lobulation of the 2nd metatarsal head is noted, with mild lobulated deformity of the base of the proximal phalanx of the 2nd toe with superimposed mild osteophyte formation. A 2-3 mm ossified body dorsal to the 2nd metatarsophalangeal joint is present. Moderate joint space narrowing and osteophyte formation of the interphalangeal joint of the great toe is noted. Soft tissues: A skin wound is identified along the medial aspect of the 5th metatarsal head which appears to contain an overlying bandage or packing material. No discrete soft tissue fluid collection appears to be present. Moderate subcutaneous edema in the region of the base of the 5th toe and to a lesser extent throughout the remainder of the forefoot and foot is noted. CT/CT foot RT w con [id number] IMPRESSION: 1. Findings are consistent with osteomyelitis of the 5th metatarsal head with an overlying medial skin wound. 2. Subcortical cystic changes at the 1st through 3rd tarsometatarsal joints are noted, which can be related to primary osteoarthritis. Cortical destructive changes at the 1st tarsometatarsal joint are also present, which can be related to neuropathic Charcot arthropathy, inflammatory arthropathy or osteomyelitis in the appropriate clinical setting. 3. Old, likely posttraumatic deformity of the 2nd metatarsal head and base of the proximal 2nd phalanx, with similar opposed osteoarthritis. 4. Primary osteoarthritic changes of the interphalangeal joint of the great toe and midfoot. 5. Soft tissue swelling is greatest in the region of the skin wound overlying the 5th metatarsal head, without evidence of a discrete fluid collection. This appearance can be related to noninfectious inflammatory changes, venous stasis or cellulitis.
--- NOTE | 2024-04-16 11:24 | PC.NURSE ---
Dr. Coughlin to bedside, right and left foot assessed. Patient assessed.
--- NOTE | 2024-04-16 11:26 | CTR_ITS ---
PROCEDURE INFORMATION: Exam: CT Left Lower Extremity, Foot Exam date and time: 04/16/2024 1:28 PM Age: 48 years old Clinical indication: Other: Deformity TECHNIQUE: Imaging protocol: CT of the left lower extremity without contrast was performed. Exam focused on the foot. Radiation optimization: All CT scans at this facility use at least one of these dose optimization techniques: automated exposure control; mA and/or kV adjustment per patient size (includes targeted exams where dose is matched to clinical indication); or iterative reconstruction. COMPARISON: No relevant prior studies available. RADIATION DOSE METRICS: Total DLP (mGy-cm): 142.32 FINDINGS: Bones/joints: The bones appear demineralized. Abnormal dorsal subluxation of the bases of the metatarsals relative to the cuneiforms and cuboid, and of the medial cuneiform relative to the navicular are noted. Regions of mildly comminuted cortical fragmentation involving the bases of the metatarsals and the distal aspect of the cuboid and cuneiforms is present. Severe joint space narrowing between the navicular and the medial cuneiform is identified. Minimal cortical fragmentation of the navicular in this region is identified. Abnormal lateral subluxation of the bases of the 2nd through 5th metatarsals relative to the middle cuneiform is present, with a gap between the 2nd and 1st metatarsal bases measuring up to 1.2 cm. Soft tissues: Diffuse mild subcutaneous edema is noted. Vasculature: There are diffuse atherosclerotic changes. CT/CT foot LT wo con* [id number] IMPRESSION: 1. The constellation of findings is compatible with advanced Charcot arthropathy in the region of the midfoot and tarsometatarsal joints. The possibility of superimposed osteomyelitis or posttraumatic changes cannot be excluded in the proper clinical setting. 2. Diffuse subcutaneous edema, without evidence of a discrete fluid collection. This appearance can be related to noninfectious inflammatory changes or cellulitis. 3. Diffuse atherosclerotic changes.
--- NOTE | 2024-04-16 12:04 | P.PHAVANC_ITS ---
Vancomycin Goal - Goal Vancomycin Goal:: 15-20 mg/L Vancomycin Indication:: Other (SEPSIS) - Therapy Current therapy:: Pip/Tazo Day of therpy:: Day [1]of [] . Actual body weight (kg): 79 kg - Data Labs: WBC 16.34 10^3/uL (3.29-11.43) H 04/16/24 08:30 WBC Cancelled 04/16/24 08:30 Corrected WBC Cancelled 04/16/24 08:30 Corrected WBC Food Cooking Machine Operator 04/16/24 08:30 RBC 4.49 10^6/uL (3.85-5.65) 04/16/24 08:30 RBC Cancelled 04/16/24 08:30 Hgb 13.10 g/dL (11.27-16.99) 04/16/24 08:30 Hgb Cancelled 04/16/24 08:30 Hct 38.9 % (36-47) 04/16/24 08:30 Hct Cancelled 04/16/24 08:30 MCV 86.6 fl (85-98) 04/16/24 08:30 MCV Cancelled 04/16/24 08:30 MCH 29.2 pg (27-33) 04/16/24 08:30 MCH Cancelled 04/16/24 08:30 MCHC 33.7 g/dL (30-55) 04/16/24 08:30 MCHC Cancelled 04/16/24 08:30 RDW 12.3 % (12.1-15.1) 04/16/24 08:30 RDW Cancelled 04/16/24 08:30 Sodium 132 mmol/L (136-145) L 04/16/24 08:30 Potassium 4.0 mmol/L (3.5-5.1) 04/16/24 08:30 Chloride 100 mmol/L (98-107) 04/16/24 08:30 Carbon Dioxide 20 mmol/L (22-29) L 04/16/24 08:30 Anion Gap 16.0 (5-19) 04/16/24 08:30 BUN 16 mg/dL (6-20) 04/16/24 08:30 Creatinine 0.5 mg/dL (0.5-0.9) 04/16/24 08:30 GFR Calculation 132.8 mL/min (90-130) H 04/16/24 08:30 Treatment plan:: new consult Regimen:: New start vancomycin for Sepsis/foot abscess. 2000 mg load dose. Started on maintenance dose of 1000 mg q8h based on population based pharmacokinetic Nomogram. Vancomycin trough with be acquired before 4th maintenance dose or so vanessa if clinically indicated.
[2024-04-16] MEDS: iohexol 350 mg/mL 500 mL Btl (per mL) IV (13:38)
--- NOTE | 2024-04-16 13:58 | PC.NURSE ---
To CT via wheelchair, tolerated well, returned to room.
[2024-04-16] MEDS: lidocaine 2% viscous 15 ML, aluminum-mag hydrox-simethicon 30 ML, sucralfate oral liq 1 GM PO (16:15)
[2024-04-16] MEDS: VANCOMYCIN ADD-Vantage 1,000 MG in 0.9% NaCl ADD-Vantage 250 ML 250 MG IV (16:15)
[2024-04-16] MEDS: sucralfate 1 gm/10 mL Oral Liq UDC PO ×2 (16:52→20:45)
[2024-04-16 16:54] LABS: Glucose Point of Care 91 mg/dL (70-110)
[2024-04-16 17:01] LABS: Anion Gap 15.6 (5-19); Blood Urea Nitrogen 13 mg/dL (6-20); Calcium 8.7 mg/dL (8.5-10.5); Carbon Dioxide 19 mmol/L (22-29); Chloride 103 mmol/L (98-107); Creatinine Clr Calc Pharmacy 116.5948; Glomerular Filtration Rate 107.6 mL/min (90-130); Glucose 104 mg/dL (65-115); Osmolality Calculated 278 mOsm/kg (285-295); Potassium 3.6 mmol/L (3.5-5.1); Sodium 134 mmol/L (136-145)
[2024-04-16 17:20] LABS: Covid PCR NEGATIVE (Negative); Influenza A NEGATIVE (Negative); Influenza B NEGATIVE (Negative); Respiratory Syncytial Virus Ce NEGATIVE (Negative)
[2024-04-16 21:10] LABS: Glucose Point of Care 133 mg/dL (70-110)
[2024-04-17] VITALS (14 sets, daily range): BP systolic 116–148; BP diastolic 72–103; PULSE 66–94; RESP 14–29; TEMP 36.6–37.4; O2SAT 92–99
[2024-04-17] MEDS: VANCOMYCIN ADD-Vantage 1,000 MG in 0.9% NaCl ADD-Vantage 250 ML 250 MG IV ×3 (01:17→17:35)
[2024-04-17] MEDS: piperacillin-tazobactam 3.375 GM in sodium chloride 0.9% (plus) 50 ML IV ×3 (02:25→17:19)
[2024-04-17] MEDS: sodium chloride 0.9% 1,000 ML 100 ML IV ×2 (04:17→16:45)
[2024-04-17 06:00] LABS: Basophils % 0.6 %; Eosinophils % 0.5 %; Hematocrit 33.7 % (36-47); Lymphocytes # 1.5 10^3/uL (0.8-4.8); Mean Corpuscular HGB Conc 33.5 g/dL (30-55); Mean Corpuscular Hemoglobin 29.7 pg (27-33); Mean Corpuscular Volume 88.7 fl (85-98); Mean Platelet Volume 10.7 fL (7.4-10.4); Monocytes # 0.6 10^3/uL (0.2-0.9); Monocytes % 8.6 %; Neutrophils # 4.53 10^3/uL (1.8-7.7); Neutrophils % 68.1 %; Nucleated Red Blood Cells % 0 %; Platelet Count 259 10^3/cmm (157-399); Red Cell Distribution Width 12.3 % (12.1-15.1); White Blood Count 6.64 10^3/uL (3.29-11.43)
[2024-04-17] MEDS: buPROPion XL (24 HR) 300 mg Tablet PO (06:05)
[2024-04-17] MEDS: sucralfate 1 gm/10 mL Oral Liq UDC PO ×4 (06:06→21:02)
[2024-04-17 06:26] LABS: Alanine Aminotransferase 10 U/L (0-33); Albumin Level 3.3 g/dL (3.5-5.2); Alkaline Phosphatase 68 U/L (35-105); Anion Gap 14.4 (5-19); Aspartate Amino Transferase 13 U/L (0-32); Blood Urea Nitrogen 8 mg/dL (6-20); Calcium 8.4 mg/dL (8.5-10.5); Carbon Dioxide 19 mmol/L (22-29); Chloride 106 mmol/L (98-107); Creatinine Clr Calc Pharmacy 117.2777; Globulin 2.9 g/dL (1.3-4.6); Glomerular Filtration Rate 107.6 mL/min (90-130); Glucose 116 mg/dL (65-115); Magnesium 1.8 mg/dL (1.7-2.3); Osmolality Calculated 281 mOsm/kg (285-295); Potassium 3.4 mmol/L (3.5-5.1); Sodium 136 mmol/L (136-145); Total Bilirubin 0.4 mg/dL (0.15-1.2); Total Protein 6.2 g/dL (6.6-8.7)
[2024-04-17 06:47] LABS: Folate Level > 20.0 ng/mL (4.8-37.3)
[2024-04-17] MEDS: pantoprazole 40 mg SDV IVP ×2 (07:26→21:02)
[2024-04-17 07:40] LABS: Glucose Point of Care 114 mg/dL (70-110)
[2024-04-17] MEDS: enoxaparin 40 mg/0.4 mL Syringe SUBCUT (08:30)
[2024-04-17] MEDS: escitalopram 10 mg Tablet 20 MG PO (08:32)
--- NOTE | 2024-04-17 11:24 | PM.CONSULT ---
Providers/Reason For Consult Consulting Physician/Specialty*: Dr. Nii Pringle DPM/Podiatry Reason for Consult*: Right foot ulcer and left foot charcot deformity Attending Physician: Zak Gutierrez Primary Care Provider: Jayson Blackburn MD History of Present Illness History of Present Illness Patient is a 48-year-old female with history of type 2 diabetes who presented to the emergency department on 04/16/2024 with complaint of nausea and vomiting over the preceding 4 days. Workup in the emergency department revealed possible sepsis. Patient was admitted to the ICU for DKA and concern for sepsis. Further workup revealed full-thickness ulceration to plantar aspect of right fifth metatarsal head. She was also found to have deformity of left midfoot. Podiatry was consulted to evaluate and provide further treatment recommendations. Patient was seen and evaluated in the ICU earlier today. Patient states that the ulceration to the plantar aspect of her right foot has been present for approximately 3 months now. She stated that it began in December. She has not seen any provider for this wound up to this point. 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 When asked about the left foot deformity, patient states that the only thing that she can think of is that she sleepwalks. She thinks that she slept walk in the middle of the night back in January and stubbed her foot on the coffee table. Since then, she has noticed that her foot became increasingly more deformed especially in the subsequent days after stubbing the foot in January. Patient denies any current pain to the left foot. When asked about drainage to the right foot, patient denies any heavy recent drainage. Review of Systems General: Reports: 10 or more systems reviewed and unremarkable except in HPI and below Const: Denies: fever(s), chills, body aches or change in appetite Eyes: Denies: change in vision or blurry vision Card: Denies: chest pain, palpitations or irregular heart rhythm Resp: Denies: dyspnea GI: Denies: abdominal pain, nausea, vomiting or diarrhea Musc: Reports: joint stiffness Skin/Breast: Reports: non-healing lesions and lesions Neuro: Reports: numbness in extremities Medications/Allergies Home Medications Medication Instructions Recorded Confirmed Last Taken Type pen needle, diabetic 32 gauge x #360 ea 04/03/22 04/16/24 Unknown Rx 1/4 (BD Ultra-Fine Micro Pen Needle) flash glucose sensor (FreeStyle #4 kits 02/12/23 04/16/24 Unknown Rx Daelina 2 Sensor kit) amlodipine 10 mg tablet 10 mg PO DAILY #90 tabs 08/18/23 04/16/24 04/12/24 10:00 Rx escitalopram oxalate 20 mg tablet 20 mg PO DAILY anxiety #90 tabs 10/28/23 04/16/24 04/12/24 10:00 Rx acarbose 25 mg tablet 25 mg PO TID 11/01/23 04/16/24 04/12/24 10:00 History promethazine 25 mg tablet 25 mg PO Q6H PRN nausea and 11/01/23 04/16/24 04/15/24 10:00 Rx vomiting #20 tabs metoclopramide HCl 10 mg tablet 10 mg PO BID PRN nausea and 11/17/23 04/16/24 04/12/24 10:00 Rx (Reglan) vomiting #60 tabs bupropion HCl 300 mg 24 hr tablet, 300 mg PO [facility] #90 12/09/23 04/16/24 04/12/24 10:00 Rx extended release tabs insulin glargine 100 unit/mL (3 See Rx Instructions .Route 12/09/23 04/16/24 Unknown Rx mL) subcutaneous pen (Basaglar .COMPLEX #15 mL KwikPen U-100 Insulin) insulin aspart U-100 100 unit/mL See Rx Instructions .Route 12/10/23 04/16/24 Unknown Rx (3 mL) subcutaneous pen (Novolog .COMPLEX #15 mL FlexPen U-100 Insulin aspart) blood-glucose sensor (FreeStyle #2 ea 02/09/24 04/16/24 Unknown Rx Adelina 3 Plus Sensor device) hydroxyzine HCl 25 mg tablet 25 mg PO Q6H PRN anxiety episodes 02/21/24 04/16/24 Unknown Rx #120 tabs spironolactone 25 mg tablet 25 mg PO DAILY #90 tabs 03/06/24 04/16/24 04/12/24 10:00 Rx (Aldactone) Allergies Allergy/AdvReac Type Severity Reaction Status Date / Time No Known Allergies Allergy Verified 03/20/24 08:05 Current Medications Generic Name Dose Route Start Last Admin Trade Name Freq PRN Reason Stop Dose Admin Bupropion HCl 300 mg 04/16/24 09:00 04/17/24 06:05 Bupropion Xl (24 Hr) 300 Mg Tablet PO 300 mg QAM PANCHO Administration Enoxaparin Sodium 40 mg 04/16/24 08:30 04/17/24 08:30 Enoxaparin 40 Mg/0.4 Ml Syringe SUBCUT 40 mg Q24H PANCHO Administration Escitalopram Oxalate 20 mg 04/16/24 09:00 04/17/24 08:32 Escitalopram 10 Mg Tablet PO 20 mg DAILY PANCHO Administration Sodium Chloride 1,000 mls @ 100 mls/hr 04/16/24 08:15 04/17/24 06:01 Sodium Chloride 0.9% IV 100 mls/hr .Q10H PANCHO Infusion Piperacillin Sod/Tazobactam 50 mls @ 12.5 mls/hr 04/16/24 10:30 04/17/24 09:59 Sod 3.375 gm/ Sodium Chloride IV 12.5 mls/hr Q8H PANCHO Administration Vancomycin HCl 1,000 mg/ 250 mls @ 250 mls/hr 04/16/24 16:30 04/17/24 09:59 Sodium Chloride IV Infused Q8H PANCHO Infusion Insulin Human Lispro 0 unit 04/16/24 12:00 04/17/24 08:24 Insulin Lispro 100 Unit/1 Ml SUBCUT Not Given WM&BEDTIME PANCHO Protocol Ondansetron HCl 4 mg 04/16/24 08:10 04/16/24 08:59 Ondansetron 2 Mg/Ml Sdv 2 Ml IVP 4 mg Q6H PRN Administration NAUSEA AND VOMITING Pantoprazole Sodium 40 mg 04/16/24 07:30 04/17/24 07:26 Pantoprazole 40 Mg Sdv IVP 40 mg Q12H PANCHO Administration Sucralfate 1 gm 04/16/24 17:00 04/17/24 11:21 Sucralfate 1 Gm/10 Ml Oral Liq Udc PO 1 gm AC&BEDTIME PANCHO Administration PFSH Acute PFSH: Medical History (Updated 04/17/24 @ 18:12 by Nii Pringle DPM) ESBL (extended spectrum beta-lactamase) producing bacteria infection Hyperlipidemia Hiatal hernia with GERD Anxiety and depression Obesity (BMI 30.0-34.9) Type 2 diabetes mellitus Hypertension Surgical History No significant past surgical history Family History Father Diabetes Mother Diabetes Social History Smoking and tobacco/nicotine status: never used tobacco/nicotine Alcohol intake: never Substance/Drug Use: never Adopted: No Caregiver/support person: No Lives independently: Yes Marital status: Single Current occupational status: employed 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 Vitals/I&O/Wt Last Vital Signs Temp 99.3 F 04/17/24 08:00 Pulse 91 04/17/24 08:00 Resp 18 04/17/24 08:00 BP 144/87 04/17/24 08:00 Pulse Ox 99 04/17/24 08:00 O2 Del Method Room Air 04/17/24 08:00 04/16/24 04/17/24 04/17/24 22:59 06:59 14:59 Intake Total 1940 / 2440 1183.333 / 3623.333 500 / 500 Output Total 1000 / 1525 600 / 2125 700 / 700 Balance 940 / 915 583.333 / 1498.333 -200 / -200 Weight last 48 hrs Weight 176 lb 3.2 oz Weight 174 lb 2.643 oz Weight 174 lb 2.643 oz Weight 180 lb Physical Exam Narrative: BELOW IS A FOCUSED LOWER EXTREMITY EXAM GENERAL: A&O x 3 VASCULAR: DP/PT pulses palpable 2/4 with CFT intact, <3seconds to distal digits DERMATOLOGICAL: Full-thickness ulceration to plantar aspect of right fifth metatarsal head measuring 1.5 x 1.0 x 0.3 cm. No active purulence. Minimal surrounding erythema. No underlying fluctuance or evidence of deep space abscess. MUSCULOSKELETAL: Palpable deformity left midfoot with dorsal dislocation of forefoot on the midfoot at the level of the tarsometatarsal joint. NEUROLOGICAL: Neurological sensation to the affected foot and ankle is diminished through L4-S1 dermatomes via 10g SWMF, diminished sensation extends proximally to the level of the ankle IMAGING: Three-view x-rays of right foot were personally interpreted by me which show erosive changes of fifth metatarsal head consistent with chronic osteomyelitis. CT scan right foot confirms the suspicion of osteomyelitis with erosive changes of fifth metatarsal head. No abscess accumulation. No subcutaneous emphysema noted. 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 With an ESR of 20 and a CRP of 3.0 and the overall appearance of the wound, stable with minimal surrounding erythema and no active drainage or underlying abscess, urgent or emergent surgery is not warranted. I did have lengthy discussion with patient at bedside this morning in regards to osteomyelitis of fifth metatarsal head and the inevitable surgery that she will need to undergo in the outpatient setting for resection of infected bone. Patient verbalized understanding to this. Any surgical intervention will be performed in the outpatient setting. -Medical plan: Based on stability of ulcer at this time I believe the patient can be discharged home on p.o. antibiotics rather than IV antibiotics. Recommend doxycycline x 10 days with adjustment in the outpatient setting -Dressings: Daily dressing change to right foot consisting of Hydrofera Blue. -Follow-up: Recommend follow-up with Dr. Pringle in the outpatient setting within 1 week of discharge (2) Charcot arthropathy of midfoot: -Charcot arthropathy left midfoot. Surgical and nonsurgical options were discussed with patient in regards to treatment. We will continue with nonsurgical at this time. -Cam boot to left lower extremity ordered. Patient can weight-bear as tolerated to the left foot in cam boot. She is to wear this daily until we can have a [place] boot fashioned for the patient (3) Osteomyelitis: -Chronic osteomyelitis right foot fifth metatarsal head. No urgent/emergent surgical intervention warranted. Follow-up outpatient for definitive treatment. Recommend p.o. antibiotics. 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
[2024-04-17 11:30] LABS: Glucose Point of Care 109 mg/dL (70-110)
--- NOTE | 2024-04-17 13:28 | PC.NURSE ---
1120 -- Dr. Pringle to bedside, discussed plan of care with patient. 1245 -- Dr. Gutierrez to bedside.
--- NOTE | 2024-04-17 13:39 | PC.NURSE ---
Report given to SOY Rm.
--- NOTE | 2024-04-17 14:03 | PC.NURSE ---
Transferred to room 103 via wheelchair, tolerated well.
[2024-04-17 16:30] LABS: Glucose Point of Care 103 mg/dL (70-110)
[2024-04-17 17:11] LABS: Vancomycin Trough 18.2 ug/mL (10-15)
[2024-04-17 20:05] LABS: Glucose Point of Care 143 mg/dL (70-110)
--- NOTE | 2024-04-17 20:30 | P.PN_ITS ---
Subjective 2 Subjective: She is overall doing better, no nausea or vomiting. Would like to try to advance diet. Vitals/I&O/Wt Last Vital Signs Temp 98.6 F 04/17/24 19:34 Pulse 75 04/17/24 20:02 Resp 29 H 04/17/24 20:02 BP 116/72 04/17/24 20:02 Pulse Ox 97 04/17/24 19:34 O2 Del Method Room Air 04/17/24 19:34 04/17/24 04/17/24 04/17/24 06:59 14:59 22:59 Intake Total 1183.333 / 3623.333 1576.667 / 1576.667 250 / 1826.667 Output Total 600 / 2125 1600 / 1600 Balance 583.333 / 1498.333 -23.333 / -23.333 250 / 226.667 Weight last 48 hrs Weight 79.923 kg Weight 79 kg Weight 79 kg Weight 81.647 kg Data 04/17/24 05:45 04/17/24 05:45 Micro: Microbiology 04/16/24 03:46 Blood Culture - Preliminary Blood NEGATIVE TO DATE 04/16/24 03:42 Blood Culture - Preliminary Blood NEGATIVE TO DATE A&P Assessment and plan (1) High anion gap metabolic acidosis: Resumed on oral diet. She has been on a fairly low dose of Lantus. Will resume at low-dose 3 units nightly for now. Monitor blood glucose. Reviewed POC glucose. Repeat chemistry in the morning. Hold further IV fluid. (2) Sepsis: Resolved Reviewed blood culture, bacterial antigens, negative so far. Reviewed CBC. Improved cellulitis of the foot. Discussed with power shovel engineer. Appreciate recommendation. High suspicion of osteomyelitis. Discussed with her. MRSA PCR reviewed, negative. Stop vancomycin Monitor blood pressures. Keep mean artery pressure 65 mmHg. (3) Osteomyelitis of ankle or foot, right, acute: Discussed with power shovel engineer. Discussed with her. High suspicion of osteomyelitis of right fifth metatarsal. Discussed antibiotic options. As per discussion of patient with podiatry discussed option with oral antibiotic. She understands is not the primary choice with some risk of therapy failure, however, with an agent with high oral availability, bone penetration, may achieve good results, and more importantly pending further follow-up and additional management with podiatry including obtaining samples for culture, further adjustment and extension of antibiotic therapy. In the meantime cam boot has been ordered by podiatry which she will use after discharge. (4) Type 2 diabetes mellitus: History of controlled diabetes. A1c of 6.1 on review. As per patient as an outpatient her Lantus is being decreased gradually on a weekly basis by her PCP. Takes Lantus 2 units every other day, Humalog as needed. Concerns for high anion gap metabolic acidosis along with positive ketones on admission. Could be in setting of dehydration from nausea and vomiting. Hold further IV fluids Insulin at low-dose protocol sliding scale. Advance diet. Qualifiers: Diabetes mellitus chcf insulin use: with manager terminal use Diabetes mellitus complication status: with circulatory complication Diabetes mellitus complication detail: with other circulatory complications Qualified Code(s): E 11.59 - Type 2 diabetes mellitus with other circulatory complications; Z79.4 - assisted (current) use of insulin (5) Esophagitis: (6) Gastroenteritis: May benefit from endoscopic evaluation as discussed with her prior follow-up with primary provider for reassessment and arrangement if needed. Continue PPI, sucralfate has helped as well. Does not take any NSAIDs. Does not drink alcohol. Occasional marijuana but not recently, made her aware of cannabinoid hyperemesis syndrome, although seems less likely. Nausea and vomiting most likely in setting of gastroenteritis. Patient denies of having any diarrhea. Appreciate CT abdomen pelvis with concerns for esophagitis/gastritis. Cholelithiasis. No ductal dilatation. LFTs within normal limits. Negative COVID, flu swab. GI cocktail one-time. Protonix 40 mg twice daily, Carafate ACHS for now. Zofran as needed. (7) Diabetic foot ulcer: (8) Charcot's joint of foot due to diabetes: Bilateral, acute. Deformity on the left ankle. Will consult podiatry for further recommendations. Physical therapy. (9) Hypertension: Blood pressure stable for now. Hold off on antihypertensive. Qualifiers: Hypertension type: primary hypertension Qualified Code(s): I10 - Essential (primary) hypertension Plan Restarted on Celexa, bupropion. Full code Lovenox for DVT prophylaxis. Attestations 2 Medical Necessity Statement*: Continue admission for assessment of anion gap metabolic acidosis, post discharge planning for management of osteomyelitis right fifth metatarsal. Diagnoses High anion gap metabolic acidosis E87.29 Sepsis A41.9 Osteomyelitis of ankle or foot, right, acute M86.171 Type 2 diabetes mellitus with other circulatory complication, with long-term current use of insulin E11.59; Z79.4 Diabetes mellitus manager terminal insulin use: with chcf use Diabetes mellitus complication status: with circulatory complication Diabetes mellitus complication detail: with other circulatory complications Esophagitis K20.90 Gastroenteritis K52.9 Diabetic foot ulcer E11.621; L97.509 Charcot's joint of foot due to diabetes E11.610 Primary hypertension I10 Hypertension type: primary hypertension
[2024-04-17] MEDS: insulin glargine 100 units/1 mL 3 UNIT SUBCUT (21:15)
[2024-04-18 00:10] VITALS: BP 137/85; PULSE 76; RESP 27; TEMP 36.9; O2SAT 98
[2024-04-18] MEDS: piperacillin-tazobactam 3.375 GM in sodium chloride 0.9% (plus) 50 ML IV (02:40)
[2024-04-18 03:38] LABS: Basophils # 0.1 10^3/uL (0.0-0.1); Eosinophils # 0.1 10^3/uL (0.0-0.8); Eosinophils % 1.3 %; Hematocrit 35.2 % (36-47); Lymphocytes # 1.9 10^3/uL (0.8-4.8); Lymphocytes % 29.8 %; Mean Corpuscular HGB Conc 33.8 g/dL (30-55); Mean Corpuscular Hemoglobin 29.2 pg (27-33); Mean Corpuscular Volume 86.3 fl (85-98); Mean Platelet Volume 10.7 fL (7.4-10.4); Monocytes # 0.5 10^3/uL (0.2-0.9); Monocytes % 8.5 %; Neutrophils % 59.2 %; Nucleated Red Blood Cells % 0 %; Platelet Count 310 10^3/cmm (157-399); Red Blood Count 4.08 10^6/uL (3.85-5.65); Red Cell Distribution Width 12.3 % (12.1-15.1); White Blood Count 6.24 10^3/uL (3.29-11.43)
[2024-04-18 04:02] LABS: Alanine Aminotransferase 11 U/L (0-33); Albumin Level 3.6 g/dL (3.5-5.2); Alkaline Phosphatase 74 U/L (35-105); Anion Gap 15.1 (5-19); Aspartate Amino Transferase 16 U/L (0-32); Blood Urea Nitrogen 6 mg/dL (6-20); Calcium 8.7 mg/dL (8.5-10.5); Carbon Dioxide 22 mmol/L (22-29); Chloride 106 mmol/L (98-107); Creatinine Clr Calc Pharmacy 117.2777; Globulin 3.1 g/dL (1.3-4.6); Glomerular Filtration Rate 107.6 mL/min (90-130); Glucose 111 mg/dL (65-115); Magnesium 1.8 mg/dL (1.7-2.3); Osmolality Calculated 288 mOsm/kg (285-295); Potassium 3.1 mmol/L (3.5-5.1); Sodium 140 mmol/L (136-145); Total Bilirubin 0.3 mg/dL (0.15-1.2); Total Protein 6.7 g/dL (6.6-8.7)
[2024-04-18 04:17] VITALS: BP 127/79; PULSE 66; RESP 25; O2SAT 98
[2024-04-18 06:00] VITALS: PULSE 71
[2024-04-18] MEDS: buPROPion XL (24 HR) 300 mg Tablet PO (06:13)
[2024-04-18] MEDS: sucralfate 1 gm/10 mL Oral Liq UDC PO (06:13)
[2024-04-18 06:56] LABS: Glucose Point of Care 111 mg/dL (70-110)
[2024-04-18 07:06] VITALS: BP 150/97; PULSE 78; RESP 11; TEMP 36.9; O2SAT 99
[2024-04-18] MEDS: escitalopram 10 mg Tablet 20 MG PO (08:23)
[2024-04-18] MEDS: enoxaparin 40 mg/0.4 mL Syringe SUBCUT (08:23)
[2024-04-18] MEDS: pantoprazole 40 mg SDV IVP (08:23)
[2024-04-18] MEDS: potassium chloride ER 20 mEq Tablet 40 MEQ PO (08:23)
--- NOTE | 2024-04-18 08:52 | PM.DCS ---
Discharge Providers Date of Admission: 04/16/24 03:33 Date of Discharge: April 18, 2024 Attending Provider at Admission: Soo Tobar MD Attending Provider at Discharge: Zak Gutierrez Primary Care Provider: Jayson Blackburn MD Diagnoses at Discharge Discharge Diagnosis (1) High anion gap metabolic acidosis: Status: Acute (2) Sepsis: Status: Acute (3) Osteomyelitis of ankle or foot, right, acute: Status: Acute (4) Type 2 diabetes mellitus: Status: Acute Qualifiers: Diabetes mellitus complication detail: with other circulatory complications Diabetes mellitus complication status: with circulatory complication Diabetes mellitus half-way insulin use: with terminal worker use Qualified Code(s): E11.59 - Type 2 diabetes mellitus with other circulatory complications; Z79.4 - joint terminal attack controller (current) use of insulin (5) Esophagitis: Status: Acute (6) Gastroenteritis: Status: Acute (7) Diabetic foot ulcer: Status: Acute (8) Charcot's joint of foot due to diabetes: Status: Acute (9) Hypertension: Status: Acute Qualifiers: Hypertension type: primary hypertension Qualified Code(s): I10 - Essential (primary) hypertension Reason for Visit Reason for Visit: n/v 4+days weakness Hospital Course Hospital Course Pleasant 48-year-old lady with history of DM2 was admitted with findings of anion gap metabolic acidosis, possible early DKA versus starvation ketosis, with gastroenteritis and esophagitis, nausea and vomiting over the preceding week, additionally found to have undiagnosed bilateral Charcot foot, as well as a wound on the inferior lateral aspect of the distal right foot with chronically draining wound with high suspicion of right fifth metatarsal joint, assessed by imaging with x-ray but also contrast-enhanced CT. She was treated with IV hydration, continue subcutaneous insulin, was assessed by podiatry. Started on antibiotics empirically for surrounding cellulitis. Cellulitis resolved. Osteomyelitis not discretely visualized, but with possibility and high suspicion for osteomyelitis she will continue on antibiotics currently with bridge therapy with doxycycline by mouth pending further assessment and management of osteomyelitis by podiatry on outpatient side. With rehydration, acid shelli, antiemetic, improvement in symptoms of gastroenteritis, resumption of oral intake, her acid-base disorder resolved. She is feeling much better, tolerating oral intake. Otherwise feeling ready to be discharged home. She was set up with a cam boot for left foot Charcot arthropathy. Physical Exam Const: COMMON NORMALS: patient oriented x3 and alert GENERAL APPEARANCE: cooperative ORIENTATION/CONSCIOUSNESS: Yes awake HENMT: COMMON NORMALS: oropharynx normal Neck/C-Spine: COMMON NORMALS: no JVD Resp: COMMON NORMALS: normal respiratory effort and clear to auscultation bilaterally AUSCULTATION: clear to auscultation bilaterally Cardio: COMMON NORMALS: no JVD, regular rhythm, S1 normal heart sound present, S2 normal heart sound present and No murmurs present (Cardio) RHYTHM: regular rhythm HEART SOUNDS: S1 normal heart sound present and S2 normal heart sound present GI: COMMON NORMALS: Normal to inspection, nondistended, normoactive bowel sounds present, Soft to palpation and non-tender PALPATION: Yes Soft to palpation Extremity: COMMON NORMALS: no joint enlargement and no pedal edema OTHER: Shallow ulceration on inferolateral distal right foot over right fifth metatarsal. Small amount of cloudy serous drainage. Neuro: COMMON NORMALS: patient oriented x3 and moves all extremities SENSORIUM/ORIENTATION: Yes alert Skin: COMMON NORMALS: no rashes or lesions noted GENERAL SKIN EXAM: no rashes or lesions noted Discharge Data Studies Completed and Pending Completed Studies During Hospitalization Category Date Time Status CT abdomen pelvis w con* [id number] Routine Cat Scan 04/16/24 08:[address] foot LT wo con* [id number] Routine Cat Scan 04/16/24 11:[address] foot RT w con [id number] Routine Cat Scan 04/16/24 11:22 Completed XR chest 1V portable [id number] Routine Exams 04/16/24 08:42 Completed XR foot RT 2V [id number] Routine Exams 04/16/24 08:42 Completed Pending at discharge Category Date Time Status Beta-Hydroxybutyrate Stat Lab 04/16/24 01:14 Received Blood Culture Stat Lab 04/16/24 03:46 Results Comprehensive Metabolic Panel AM LABS Lab 04/19/24 04:00 Ordered Magnesium AM LABS Lab 04/19/24 04:00 Ordered Radiology Impressions Abdomen/Pelvis CT 04/16/24 08:42 IMPRESSION: 1. No acute abdominal or pelvic findings. 2. A small hiatal hernia is noted, with possible diffuse mild diffuse wall thickening of the distal esophagus. This appearance can be related to nondistention or esophagitis and may be exaggerated by motion artifact. A malignant etiology is less likely but cannot be entirely excluded. 3. Nonobstructing right nephrolithiasis. 4. Similar small low-density lesion in the superior pole of the left kidney compared with at least 09/07/2022, likely benign. No follow-up is necessary. 5. Cholelithiasis. 6. Colonic diverticulosis, without evidence of diverticulitis. COMMENTS: Consistent with the [employer]'s Incidental Findings Committee white paper (J Am Denny Radiol 2018): Any incidental renal lesion less than 1 cm or classified as too small to characterize, or any incidental cystic renal lesion characterized as simple-appearing, is likely benign. No follow-up imaging is recommended for these lesions per consensus recommendations based on imaging criteria. Chest X-Ray 04/16/24 08:42 IMPRESSION: No acute findings. Foot X-Ray 04/16/24 08:42 IMPRESSION: 1. There is an indistinct and lucent appearance of the 5th metatarsal head which can be associated with osteomyelitis in the proper clinical setting. 2. Healed fractures of the 3rd and 4th metatarsals. 3. 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 4. Cystic changes at the 1st and 2nd tarsometatarsal joints are noted which can be related to primary osteoarthritis. No definite erosive changes. Foot CT 04/16/24 11:26 IMPRESSION: 1. The constellation of findings is compatible with advanced Charcot arthropathy in the region of the midfoot and tarsometatarsal joints. The possibility of superimposed osteomyelitis or posttraumatic changes cannot be excluded in the proper clinical setting. 2. Diffuse subcutaneous edema, without evidence of a discrete fluid collection. This appearance can be related to noninfectious inflammatory changes or cellulitis. 3. Diffuse atherosclerotic changes. Laboratory Results WBC 6.24 10^3/uL (3.29-11.43) 04/18/24 02:49 Corrected WBC Cancelled 04/16/24 08:30 Corrected WBC Pad Extractor Tender 04/16/24 08:30 RBC 4.08 10^6/uL (3.85-5.65) 04/18/24 02:49 Hgb 11.90 g/dL (11.27-16.99) 04/18/24 02:49 Hct 35.2 % (36-47) L 04/18/24 02:49 MCV 86.3 fl (85-98) 04/18/24 02:49 MCH 29.2 pg (27-33) 04/18/24 02:49 MCHC 33.8 g/dL (30-55) 04/18/24 02:49 RDW 12.3 % (12.1-15.1) 04/18/24 02:49 Plt Count 310 10^3/cmm (157-399) 04/18/24 02:49 MPV 10.7 fL (7.4-10.4) H 04/18/24 02:49 Gran % Cancelled 04/16/24 08:30 Gran % Pad Extractor Tender 04/16/24 08:30 Neut % (Auto) 59.2 % 04/18/24 02:49 Lymph % (Auto) 29.8 % 04/18/24 02:49 [place] % (Auto) 8.5 % 04/18/24 02:49 Eos % (Auto) 1.3 % 04/18/24 02:49 Baso % (Auto) 1.0 % 04/18/24 02:49 Neut # (Auto) 3.70 10^3/uL (1.8-7.7) 04/18/24 02:49 Lymph # (Auto) 1.9 10^3/uL (0.8-4.8) 04/18/24 02:49 [place] # (Auto) 0.5 10^3/uL (0.2-0.9) 04/18/24 02:49 Eos # (Auto) 0.1 10^3/uL (0.0-0.8) 04/18/24 02:49 Baso # (Auto) 0.1 10^3/uL (0.0-0.1) 04/18/24 02:49 Absolute Gran (auto) Cancelled 04/16/24 08:30 Absolute Gran (auto) Pad Extractor Tender 04/16/24 08:30 Nucleated RBC % (auto) 0 % 04/18/24 02:49 Nucleated RBCs # 0.0 /100WBC 04/18/24 02:49 ESR 20 mm/hr (0-15) H 04/16/24 08:30 PT 14.10 SECONDS (12.1-14.9) 04/16/24 08:30 INR 1.06 (0.8-1.2) 04/16/24 08:30 Specimen Type Arterial 04/16/24 02:23 Sample Site Brachial, right 04/16/24 02:23 ABG pH 7.36 (7.35-7.45) 04/16/24 02:23 ABG pCO2 29.8 mmHg (35-45) L 04/16/24 02:23 ABG pO2 91.3 mmHg (80.0-100.0) 04/16/24 02:23 ABG PO2/FiO2 Ratio 434 04/16/24 02:23 ABG HCO3 17.0 mmol/L (22-26) L 04/16/24 02:23 ABG O2 Saturation 97.1 04/16/24 02:23 ABG Base Excess -7.1 mmol/L (-2.0-2.0) L 04/16/24 02:23 Jose Test N/a 04/16/24 02:23 A-a O2 Gradient 2.4 mmHg (5-10) L 04/16/24 02:23 Hematocrit 45.2 % (37-47) 04/16/24 02:23 Hgb O2 Saturation 95.3 % (95-100) 04/16/24 02:23 Carboxyhemoglobin 0.8 %THgb (0.4-20.1) 04/16/24 02:23 Methemoglobin 1.1 % (0.4-1.5) 04/16/24 02:23 Total Hemoglobin 14.7 g/dL (12-16) 04/16/24 02:23 Sodium 134.0 mmol/L (131-143) 04/16/24 02:23 Potassium 3.7 mmol/L (3.5-5.0) 04/16/24 02:23 Glucose 184.0 mg/dL (70-115) H 04/16/24 02:23 Ionized Calcium 1.2 mmol/L (1.1-1.4) 04/16/24 02:23 O2 Delivery Device Room air 04/16/24 02:23 FiO2 21.0 % 04/16/24 02:23 Gis Instructor ID [id number] 04/16/24 02:23 Sodium 140 mmol/L (136-145) 04/18/24 02:49 Potassium 3.1 mmol/L (3.5-5.1) L 04/18/24 02:49 Chloride 106 mmol/L (98-107) 04/18/24 02:49 Carbon Dioxide 22 mmol/L (22-29) 04/18/24 02:49 Anion Gap 15.1 (5-19) 04/18/24 02:49 BUN 6 mg/dL (6-20) 04/18/24 02:49 Creatinine 0.6 mg/dL (0.5-0.9) 04/18/24 02:49 GFR Calculation 107.6 mL/min (90-130) 04/18/24 02:49 Glucose 111 mg/dL (65-115) 04/18/24 02:49 POC Glucose 111 mg/dL (70-110) H 04/18/24 06:49 Calculated Osmolality 288 mOsm/kg (285-295) 04/18/24 02:49 Calcium 8.7 mg/dL (8.5-10.5) 04/18/24 02:49 Magnesium 1.8 mg/dL (1.7-2.3) 04/18/24 02:49 Iron 80 ug/dL (37-145) 04/16/24 08:30 TIBC 254 mcg/dl 04/16/24 08:30 % Saturation 31.4 % (20-50) 04/16/24 08:30 Unsat Iron Binding 174 ug/dL (112-347) 04/16/24 08:30 Total Bilirubin 0.3 mg/dL (0.15-1.2) 04/18/24 02:49 AST 16 U/L (0-32) 04/18/24 02:49 ALT 11 U/L (0-33) 04/18/24 02:49 Alkaline Phosphatase 74 U/L (35-105) 04/18/24 02:49 C-Reactive Protein 3.0 mg/L (0.0-4.9) 04/16/24 08:30 Total Protein 6.7 g/dL (6.6-8.7) 04/18/24 02:49 Albumin 3.6 g/dL (3.5-5.2) 04/18/24 02:49 Globulin 3.1 g/dL (1.3-4.6) 04/18/24 02:49 Triglycerides 85 mg/dL (0-150) 04/16/24 08:30 Cholesterol 133 mg/dL (0-200) 04/16/24 08:30 LDL Cholesterol, Calc 82 mg/dL (50-129) 04/16/24 08:30 Total VLDL Cholesterol 17 mg/dL (0-30) 04/16/24 08:30 HDL Cholesterol 34 mg/dL (60-100) L 04/16/24 08:30 Cholesterol/HDL Ratio 3.91 mg/dL (0.0-4.40) 04/16/24 08:30 Vitamin B12 1720 pg/mL (232-1245) H 04/16/24 08:30 Folate > 20.0 ng/mL (4.8-37.3) 04/17/24 05:45 Procalcitonin 0.14 ng/mL (0-0.5) 04/16/24 08:30 TSH 1.65 uIU/mL (0.27-4.20) 04/16/24 08:30 Urine Color Yellow (Yellow) 04/16/24 09:45 Urine Appearance Clear (CLEAR) 04/16/24 09:45 Urine pH 6.0 (5-7) 04/16/24 09:45 Ur Specific [place] 1.021 (1.005-1.030) 04/16/24 09:45 Urine Protein Trace (Negative) A 04/16/24 09:45 Urine Glucose (UA) Negative (Normal) 04/16/24 09:45 Urine Ketones 3+ (Negative) H 04/16/24 09:45 Urine Blood 1+ (Negative) A 04/16/24 09:45 Urine Nitrate Negative (Negative) 04/16/24 09:45 Urine Bilirubin Negative (Negative) 04/16/24 09:45 Urine Urobilinogen 1.0 mg/dL (Negative) 04/16/24 09:45 Ur Leukocyte Esterase Negative (Negative) 04/16/24 09:45 Urine RBC 0-2 /hpf (0-2) 04/16/24 09:45 Urine WBC 0-5 /hpf (0-5) 04/16/24 09:45 Ur Squamous Epith Cells 0-5 /hpf (0-5) 04/16/24 09:45 Amorphous Sediment Not Reportable 04/16/24 09:45 Urine Bacteria None seen /hpf (NONE) 04/16/24 09:45 Hyaline Casts 1.65 /lpf 04/16/24 09:45 Nasal MRSA (PCR) Not detected (Not Detecte) 04/16/24 09:18 Vancomycin Trough 18.2 ug/mL (10-15) H 04/17/24 16:30 Urine Opiates Screen Negative ng/mL (Negative) 04/16/24 09:45 Ur Barbiturates Screen Negative ng/mL (Negative) 04/16/24 09:45 Ur Phencyclidine Scrn Negative ng/mL (Negative) 04/16/24 09:45 Ur Amphetamines Screen Negative ng/mL (Negative) 04/16/24 09:45 U Benzodiazepines Scrn Positive ng/mL (Negative) H 04/16/24 09:45 Urine Cocaine Screen Negative ng/mL (Negative) 04/16/24 09:45 U Marijuana (THC) Screen Positive ng/mL (Negative) H 04/16/24 09:45 Serum Ketones Positive (Negative) H 04/16/24 01:14 Coronavirus (PCR) Negative (Negative) 04/16/24 16:05 Influenza A (PCR) Negative (Negative) 04/16/24 16:05 Influenza Type B (PCR) Negative (Negative) 04/16/24 16:05 RSV (PCR) Negative (Negative) 04/16/24 16:05 Vitals Last Vital Signs Temp 98.4 F 04/18/24 07:06 Pulse 78 04/18/24 07:06 Resp 11 L 04/18/24 07:06 BP 150/97 04/18/24 07:06 Pulse Ox 99 04/18/24 07:06 O2 Del Method Room Air 04/18/24 07:06 Discharge Plan Discharge Patient Disposition: Home Condition: Stable Prescriptions: New doxycycline hyclate 100 mg capsule 100 mg PO BID 10 Days Qty: 20 0RF pantoprazole 40 mg tablet,delayed release (DR/EC) 40 mg PO DAILY 42 Days Qty: 42 0RF sucralfate 1 gram tablet 1 g PO BID 14 Days Qty: 28 0RF Continued (DME) pen needle, diabetic [BD Ultra-Fine Micro Pen Needle] 32 gauge x 1/4 needle See Rx Instructions .Route Qty: 360 3RF Rx Instructions: As directed metoclopramide HCl [Reglan] 10 mg tablet 10 mg PO BID PRN (Reason: nausea and vomiting) Qty: 60 5RF escitalopram oxalate 20 mg tablet 20 mg PO DAILY Qty: 90 1RF (DME) FreeStyle Adelina 2 Sensor Kit See Rx Instructions .ROUTE .COMPLEX Qty: 4 0RF Dose Instruction: CHANGE every 14 DAYS Rx Instructions: CHANGE every 14 DAYS amlodipine 10 mg tablet 10 mg PO DAILY Qty: 90 3RF Basaglar KwikPen U-100 Insulin 100 unit/mL (3 mL) insulin pen See Rx Instructions .ROUTE .COMPLEX Qty: 15 3RF Dose Instruction: inject 15 units SUBCUTANEOUSLY EVERY DAY Rx Instructions: inject 15 units SUBCUTANEOUSLY EVERY DAY bupropion HCl 300 mg tablet extended release 24 hr 300 mg PO QAM Qty: 90 1RF Novolog FlexPen U-100 Insulin 100 unit/mL (3 mL) insulin pen See Rx Instructions .ROUTE .COMPLEX Qty: 15 3RF Dose Instruction: inject SUBCUTANEOUSLY THREE TIMES DAILY AFTER MEALS based ON sliding scale Rx Instructions: inject SUBCUTANEOUSLY THREE TIMES DAILY AFTER MEALS based ON sliding scale (DME) FreeStyle Adelina 3 Plus Sensor Device See Rx Instructions .Route Qty: 2 3RF Rx Instructions: As directed hydroxyzine HCl 25 mg tablet 25 mg PO Q6H PRN (Reason: anxiety episodes) Qty: 120 1RF Aldactone 25 mg tablet 25 mg PO DAILY Qty: 90 3RF acarbose 25 mg tablet 25 mg PO TID promethazine 25 mg tablet 25 mg PO Q6H PRN (Reason: nausea and vomiting) Qty: 20 0RF Discharge Orders: Discharge Order (Routine); Ordered 04/18/24 Ordered By: Zak Gutierrez Referrals: Jayson Blackburn MD [Primary Care Provider] - 4-7 days (We have notified your physician's clinic of the need for a follow-up appointment to be scheduled. If you have not heard from them within the next 2 business days, please call them directly. ) Nii Pringle DPM [Physician] - 04/27/24 7:45 am Discharge Diet: Diabetic Patient Instructions: Sucralfate (By mouth) (Carafate), Doxycycline (By mouth), Pantoprazole (By mouth) (Protonix), Potassium Content of Foods List (GEN), Osteomyelitis (GEN), Sepsis (DC), Metabolic Acidosis (GEN) Activity Restrictions/Additional Instructions: Please follow-up with your primary doctor for reassessment of diabetes control, reassessment after possible early ketoacidosis. Continue to monitor and optimize blood glucose control. Target blood glucose 100-150 mg/dL. Please follow-up with your primary doctor for reassessment of gastroenteritis, esophagitis. Continue acid shelli medication for now for a 6-week course, sucralfate for 2 weeks. In case of persistence of any symptoms, discussed with your primary doctor arrangements for endoscopic evaluation. Follow-up with podiatry and with your primary doctor for reassessment of bone infection (osteomyelitis) in your right foot. As discussed partial treatment is started currently with antibiotic but this condition requires further assessment and management with podiatry. Doxycycline is not sufficient to treat this condition on its own. Continue cam boot and follow-up with podiatry and your primary provider regarding Charcot foot on the left. Please have your primary provider also follow-up your potassium level. You received supplementation while in the hospital. Include potassium rich foods in your diet. Seek medical attention in case of any worsening or new concerning symptoms. Discharge Attestations Time Spent in Discharge Care*: greater than 30 min Quality Metrics Clinical Quality Measures [ No reported AMI, CVA or VTE this stay] Coding Level of Care Code 52330 Total time (in minutes) for Discharge: 45 Diagnoses High anion gap metabolic acidosis E87.29 Sepsis A41.9 Osteomyelitis of ankle or foot, right, acute M86.171 Type 2 diabetes mellitus with other circulatory complication, with long-term current use of insulin E11.59; Z79.4 Diabetes mellitus complication detail: with other circulatory complications Diabetes mellitus complication status: with circulatory complication Diabetes mellitus half-way insulin use: with terminal worker use Esophagitis K20.90 Gastroenteritis K52.9 Diabetic foot ulcer E11.621; L97.509 Charcot's joint of foot due to diabetes E11.610 Primary hypertension I10 Hypertension type: primary hypertension
[2024-04-18 10:25] VITALS: BP 158/87; PULSE 82; RESP 16; TEMP 36.8; O2SAT 95
== END 2024-04-18 09:49 | disposition home or self-care (01) | DRG 871 ==
LOC: ER 03:33 → ICU 04:12 → CSU 04-17 13:49
PROVIDERS: Student in an Organized Health Care Education/Training Program; Admitting Provider Internal Medicine; Emergency Provider Emergency Medicine; PCP Family Medicine Adult Medicine; Visit Provider Internal Medicine
DX: A41.9 Sepsis, unspecified organism (principal); E11.10 Type 2 diabetes mellitus with ketoacidosis without coma; E11.52 Type 2 diabetes mellitus with diabetic peripheral angiopathy with gangrene; I96 Gangrene, not elsewhere classified; M86.171 Other acute osteomyelitis, right ankle and foot; L97.414 Non-pressure chronic ulcer of right heel and midfoot with necrosis of bone; L03.115 Cellulitis of right lower limb; E11.69 Type 2 diabetes mellitus with other specified complication; E11.610 Type 2 diabetes mellitus with diabetic neuropathic arthropathy; E11.621 Type 2 diabetes mellitus with foot ulcer; K20.90 Esophagitis, unspecified without bleeding; K52.9 Noninfective gastroenteritis and colitis, unspecified; I10 Essential (primary) hypertension; F41.9 Anxiety disorder, unspecified; F32.A Depression, unspecified; E78.2 Mixed hyperlipidemia; K44.9 Diaphragmatic hernia without obstruction or gangrene; K21.9 Gastro-esophageal reflux disease without esophagitis; E66.9 Obesity, unspecified; K80.20 Calculus of gallbladder without cholecystitis without obstruction; Z68.31 Body mass index [BMI] 31.0-31.9, adult; Z79.4 Long term (current) use of insulin; Z83.3 Family history of diabetes mellitus
CPT/HCPCS: 36415; 36416; 36600; 71045; 73620; 73700; 73701; 74177; 80048; 80051; 80053; 80061; 80202; 80306; 81001; 82009; 82010; 82330; 82607; 82746; 82805; 82962; 83540; 83550; 83735; 84145; 84443; 85025; 85610; 85651; 86140; 86403; 87040; 87637; 93005; 96361; 96372; 96374; 96375; 96376; 97116; 97161; 99285; J1630; J1650; J1815; J2060; J2405; J2470; J2543; J3370; J3372; J7030; J7050; L4361

== ENCOUNTER → 2024-05-02 11:08 | Outpatient (BNVA) | payer BC, SELFPAY | PROVIDERS: PCP Family Medicine Adult Medicine | DX: E11.59 Type 2 diabetes mellitus with other circulatory complications (principal); Z79.4 Long term (current) use of insulin | CPT/HCPCS: 80053; 85025 ==

== ENCOUNTER 2024-06-13 15:48 | Outpatient (CLI) | payer BC, SELFPAY ==
[2024-06-13 16:49] LABS: Estmated Average Glucose 123; Hemoglobin A1C 5.9 % (4.0-6.0)
[2024-06-13 17:41] LABS: Alanine Aminotransferase 16 U/L (0-33); Albumin Level 4.2 g/dL (3.5-5.2); Alkaline Phosphatase 101 U/L (35-105); Anion Gap 14.7 (5-19); Aspartate Amino Transferase 18 U/L (0-32); Blood Urea Nitrogen 18 mg/dL (6-20); Carbon Dioxide 25 mmol/L (22-29); Chloride 104 mmol/L (98-107); Chol HDL Ratio 4.05 mg/dL (0.0-4.40); Cholesterol 154 mg/dL (0-200); Globulin 3.4 g/dL (1.3-4.6); Glomerular Filtration Rate 67.1 mL/min (90-130); Glucose 94 mg/dL (65-115); HDL Cholesterol 38 mg/dL (60-100); LDL Cholesterol Calculated 80 mg/dL (50-129); LDL HDL Ratio 2.11 RATIO (0.00-3.22); Osmolality Calculated 290 mOsm/kg (285-295); Potassium 4.7 mmol/L (3.5-5.1); Sodium 139 mmol/L (136-145); Total Bilirubin 0.2 mg/dL (0.15-1.2); Total Protein 7.6 g/dL (6.6-8.7); Triglycerides 178 mg/dL (0-150)
[2024-06-13 17:47] LABS: Creatinine Urine, Random 295 mg/dL (28-217); Microalbum Creatinine Ratio Ur 7 mg/dL (0-20); Microalbumin Random Urine 2 ug/dL (0-20)
== END 2024-06-13 15:49 | disposition home or self-care (01) ==
PROVIDERS: Visit Provider Internal Medicine
DX: E11.59 Type 2 diabetes mellitus with other circulatory complications (principal); Z79.4 Long term (current) use of insulin; E78.2 Mixed hyperlipidemia
CPT/HCPCS: 36415; 80053; 80061; 82044; 83036

== ENCOUNTER 2024-06-27 14:17 | Outpatient (CLI) | payer BC, SELFPAY ==
--- NOTE | 2024-06-27 14:22 | XR_ITS ---
WS: [email or web address] Left foot, 3 views, 06/27/2024 Clinical Data: E11.621 - Type 2 diabetes mellitus with foot ulcer Comparison: None. Findings: There is lateral dislocation of the second through fifth metatarsals from their articulations with the cuneiforms and cuboid. There is cystic change in the bases of the metatarsals and in the first cuneiform. Plantar surface of the foot shows a ulceration with air in the subcutaneous tissue and erosion of the cuboid bone. These changes could represent cellulitis and minimal osteomyelitis of the cuboid. There is demineralization of the bones of the foot. No fractures are seen. XR/XR foot LT min 3V* [id number] Impression: 1. Lateral dislocation of the second through fifth metatarsals from their artic ulations with acute cuneiforms and cuboid. No location. 2. Erosion of the plantar surface of the foot with an ulceration in the subcuta neous tissue and possible erosion of the cuboid. Question osteomyelitis.
== END 2024-06-27 14:18 | disposition home or self-care (01) ==
LOC: RAD 14:18
PROVIDERS: PCP Family Medicine Adult Medicine; Visit Provider Thoracic Surgery (Cardiothoracic Vascular Surgery)
DX: E11.621 Type 2 diabetes mellitus with foot ulcer (principal); L97.529 Non-pressure chronic ulcer of other part of left foot with unspecified severity; S93.335A Other dislocation of left foot, initial encounter; X58.XXXA Exposure to other specified factors, initial encounter; R93.6 Abnormal findings on diagnostic imaging of limbs; M81.0 Age-related osteoporosis without current pathological fracture
CPT/HCPCS: 73630; 87070; 87176; 87205

== ENCOUNTER 2024-06-30 07:27 | Outpatient (CLI) | payer BC, SELFPAY ==
--- NOTE | 2024-06-30 08:00 | MR_ITS ---
WS: [id number] MRI LEFT FOOT WITH AND WITHOUT CONTRAST. COMPARISON: CT 04/16/2024, radiograph 06/27/2024 Multiplanar, multisequence imaging is performed with and without contrast. MultiHance 17 mL. Severely deformed midfoot. Previously described Charcot type deformity. Abnormal alignment between the metatarsals and tarsals. Severe osteopenia. Hammertoe deformities. Soft tissue ulceration along the plantar surface of the foot at the level of the cuboid. Opening of the ulceration is 12 mm. There is enhancement along the tract which extends to the cuboid. Diffuse enhancement of the cuboid. The entire cuboid is enhancing. Numerous additional bones of the foot are also enhancing. All of the bones in the midfoot are enhancing as are the proximal metatarsals. Most significant involvement fourth and fifth metatarsals. The tarsal bones are very difficult to identify individually due to the long-term areas of erosions and loss of bone. There is also extensive soft tissue edema throughout the foot greatest involving the midfoot but also extending to the toes and towards the ankle. Additional marked low signal along the plantar surface of the foot between the proximal fourth and fifth metatarsals may be packing material. There is no focal collection such as an abscess. MR/MR foot LT wo/w con [id number] IMPRESSION: 1. Severely chronically deformed midfoot most consistent with a Charcot deform ity. Previously described malalignment at the tarsometatarsal junction. 2. Soft tissue tract along the plantar surface of the foot extends to the cubo id. Cuboid is displaced inferiorly due to chronic deformity nearly extending to the skin surface. 3. There is diffuse abnormal bone and soft tissue enhancement in the midfoot a nd involving the proximal metatarsals. Most significant enhancement is at the c uboid. All of the remaining visualized tarsal bones are enhancing. Proximal met atarsals enhance also. Consistent with osteomyelitis. 4. Advanced diffuse cellulitis involving the foot and extending towards the di stal ankle.
[2024-06-30] MEDS: gadobenate dimeglumine 20 mL vial 17 ML IV (08:56)
== END 2024-06-30 07:28 | disposition home or self-care (01) ==
LOC: RAD 07:30
PROVIDERS: PCP Family Medicine; Visit Provider Thoracic Surgery (Cardiothoracic Vascular Surgery)
DX: E11.621 Type 2 diabetes mellitus with foot ulcer (principal); L97.529 Non-pressure chronic ulcer of other part of left foot with unspecified severity; R93.6 Abnormal findings on diagnostic imaging of limbs; M79.89 Other specified soft tissue disorders; L03.116 Cellulitis of left lower limb; M85.872 Other specified disorders of bone density and structure, left ankle and foot; M20.42 Other hammer toe(s) (acquired), left foot
CPT/HCPCS: 73720

== ENCOUNTER → 2024-07-04 10:55 | Outpatient (BNVA) | payer BC, SELFPAY | PROVIDERS: PCP Family Medicine; Visit Provider Thoracic Surgery (Cardiothoracic Vascular Surgery) | DX: E11.621 Type 2 diabetes mellitus with foot ulcer (principal); L97.509 Non-pressure chronic ulcer of other part of unspecified foot with unspecified severity | CPT/HCPCS: 87070; 87077; 87186 ==

== ENCOUNTER → 2024-08-01 15:04 | Outpatient (BNVA) | payer BC, SELFPAY | PROVIDERS: PCP Family Medicine; Visit Provider Podiatrist Foot & Ankle Surgery | DX: S91.309A Unspecified open wound, unspecified foot, initial encounter (principal); X58.XXXA Exposure to other specified factors, initial encounter | CPT/HCPCS: 36415; 85007; 85027; 85651; 86140 ==

== ENCOUNTER 2024-08-21 15:27 | Outpatient (CLI) | payer BC, SELFPAY ==
--- NOTE | 2024-08-21 16:01 | XR_ITS ---
WS: [email or web address] XR foot LT min 3V* [id number] REASON FOR EXAM: left foot ulcer with charcot deformity and erythema FINDINGS: Joint space disruption with sclerosis and erosion and lateral subluxations along the lateral Lisfranc and intertarsal joints. Progressive destruction in the plantar surface of the cuboid. XR/XR foot LT min 3V* [id number] IMPRESSION: Charcot arthropathy in the midfoot with probable osteomyelitis in the plantar s urface of the cuboid.
== END 2024-08-21 15:28 | disposition home or self-care (01) ==
PROVIDERS: PCP Family Medicine; Visit Provider Thoracic Surgery (Cardiothoracic Vascular Surgery)
DX: E11.621 Type 2 diabetes mellitus with foot ulcer (principal); L97.529 Non-pressure chronic ulcer of other part of left foot with unspecified severity; M14.672 Charcot's joint, left ankle and foot; R93.6 Abnormal findings on diagnostic imaging of limbs; S93.332A Other subluxation of left foot, initial encounter; X58.XXXA Exposure to other specified factors, initial encounter
CPT/HCPCS: 36415; 73630; 80053; 85025; 86140; 87070; 87176; 87205

== ENCOUNTER 2024-08-29 15:37 | Outpatient (CLI) | payer BC, SELFPAY ==
[2024-08-29 16:57] LABS: Anion Gap 15.9 (5-19); Blood Urea Nitrogen 15 mg/dL (6-20); Calcium 8.7 mg/dL (8.5-10.5); Carbon Dioxide 21 mmol/L (22-29); Chloride 104 mmol/L (98-107); Glomerular Filtration Rate 107.2 mL/min (90-130); Glucose 81 mg/dL (65-115); Osmolality Calculated 284 mOsm/kg (285-295); Potassium 3.9 mmol/L (3.5-5.1); Sodium 137 mmol/L (136-145)
== END 2024-08-29 15:38 | disposition home or self-care (01) ==
PROVIDERS: PCP Family Medicine; Visit Provider Internal Medicine
DX: N17.9 Acute kidney failure, unspecified (principal); E55.9 Vitamin D deficiency, unspecified; E78.2 Mixed hyperlipidemia; E11.59 Type 2 diabetes mellitus with other circulatory complications; Z79.4 Long term (current) use of insulin
CPT/HCPCS: 36415; 80048

== ENCOUNTER 2024-09-04 06:45 | Day surgery (SDC) | payer BC, SELFPAY ==
[2024-09-04] VITALS (9 sets, daily range): BP systolic 93–159; BP diastolic 53–88; PULSE 63–82; RESP 14–18; TEMP 36.4–36.6; O2SAT 90–100; BMI 29.2
--- NOTE | 2024-09-04 | XR_ITS ---
WS: [email or web address] Left foot, C-arm fluoroscopy views, 09/04/2024 Clinical Data: Incision bone cortex left foot CPT 52511 Comparison: Left foot, 06/27/2024 Findings: Dr. Pringle incised the cortex of the cuboid bone of the left foot. XR/XR foot LT 2V [id number] Impression: Incision of cortex of cuboid bone of the left foot.
[2024-09-04 07:04] LABS: OR HCG Qualitative Urine Negative (Negative)
[2024-09-04] MEDS: gabapentin 300 mg Capsule PO (07:10)
[2024-09-04] MEDS: CELEcoxib 200 mg Capsule 400 MG PO (07:17)
[2024-09-04] MEDS: sodium chloride 0.9% 1,000 ML 30 ML IV (07:19)
[2024-09-04 07:21] LABS: Glucose Point of Care 132 mg/dL (70-110)
--- NOTE | 2024-09-04 07:29 | ANES.PREANE2 ---
Pre-Anesthetic Assessment Height/Weight: Height 5 ft 3 in Weight 165 lb Temp Pulse Resp BP Pulse Ox O2 Del Method 97.6 F 82 18 149/83 100 Room Air 09/04/24 07:05 09/04/24 07:05 09/04/24 07:05 09/04/24 07:05 09/04/24 07:05 09/04/24 07:05 Preop Diagnosis: Osteomyelitis left foot Operation Date: 09/04/24 08:25 Proposed Procedures p Incision of Bone Cortex Left Foot(Left) - BERHANE SerratoM Was Beta Shameka taken within 24 hours: N/A Was Clonidine taken within 24 hours: N/A Last intake: Intake Last Liquid Date 09/03/24 Last Liquid Time 20:00 Last Solid Date 09/03/24 Last Solid Time 18:00 Social No alcohol and No tobacco Exam alert, oriented x 3, clear to auscultation bilaterally and regular rate & rhythm Airway Submandibular: within normal limits Cervical ROM: within normal limits Mallampati: Class II Dentition: full Anesthetic Plan ASA status: 3 Anesthesia: General Other: No prior issues with anesthesia NPO since yesterday evening Type 2 diabetes on insulin. Preop BS 132 Severe neuropathy of bilateral lower extremities GERD, controlled with omeprazole Hypertension on spironolactone. Preop BP 149/83 Labs reviewed from 08/29/2024 and acceptable for surgery EKG sinus rhythm Plan for MAC anesthesia with local via surgeon Medications/Allergies Home Medications ?Medication ?Instructions ?Recorded ?Confirmed ?Last Taken ?Type pen needle, diabetic 32 gauge x #360 ea 04/03/22 09/04/24 Unknown Rx 1/4 (BD Ultra-Fine Micro Pen Needle) flash glucose sensor (FreeStyle #4 kits 02/12/23 09/04/24 Unknown Rx Adelina 2 Sensor kit) acarbose 25 mg tablet 25 mg PO PRN 11/01/23 09/04/24 2 Weeks Ago History ~08/21/24 promethazine 25 mg tablet 25 mg PO Q6H PRN nausea and 11/01/23 09/04/24 2 Months Ago Rx vomiting #20 tabs ~07/05/24 [place] boot #1 ea 05/01/24 09/04/24 Unknown Rx amlodipine 10 mg tablet 10 mg PO DAILY #90 tabs 06/15/24 09/04/24 08/31/24 Rx bupropion HCl 300 mg 24 hr tablet, 300 mg PO [facility] mental health #90 06/15/24 09/04/24 08/31/24 Rx extended release tabs escitalopram oxalate 20 mg tablet 20 mg PO DAILY anxiety #90 tabs 06/15/24 09/04/24 08/31/24 Rx metoclopramide HCl 10 mg tablet 10 mg PO BID PRN nausea and 06/15/24 09/04/24 09/03/24 Rx (Reglan) vomiting #60 tabs omeprazole 20 mg capsule,delayed 20 mg PO DAILY #90 caps 06/15/24 09/04/24 08/31/24 Rx release spironolactone 25 mg tablet 25 mg PO DAILY #90 tabs 06/15/24 09/04/24 08/31/24 Rx (Aldactone) ondansetron 8 mg disintegrating 8 mg PO Q8H PRN nausea and 06/26/24 09/04/24 1 Month Ago Rx tablet vomiting #3 tabs ~08/05/24 blood-glucose sensor (FreeStyle #2 ea 07/19/24 09/04/24 Unknown Rx Adelina 3 Plus Sensor device) hydroxyzine HCl 25 mg tablet 25 mg PO Q6H PRN anxiety episodes 08/12/24 09/04/24 1 Month Ago Rx #120 tabs ~08/05/24 Knee Scooter #1 ea 08/30/24 09/04/24 Unknown Rx insulin aspart U-100 100 unit/mL 1 sliding scale dose SUBCUT TID 08/31/24 09/04/24 08/31/24 History (3 mL) subcutaneous pen (Novolog FlexPen U-100 Insulin aspart) insulin glargine 100 unit/mL (3 5 unit SUBCUT DAILY 08/31/24 09/04/24 08/31/24 History mL) subcutaneous pen (Basaglar KwikPen U-100 Insulin) Allergies Allergy/AdvReac Type Severity Reaction Status Date / Time No Known Allergies Allergy Verified 08/30/24 07:53 Current Medications Generic Name Dose Route Start Last Admin Trade Name Freq PRN Reason Stop Dose Admin Sodium Chloride 1,000 mls @ 30 mls/hr 09/04/24 07:00 09/04/24 07:19 Sodium Chloride 0.9% IV 09/05/24 06:59 30 mls/hr .Q24H PANCHO Administration PFSH Anesthesia Medical History Cholelithiasis ESBL (extended spectrum beta-lactamase) producing bacteria infection Hyperlipidemia Hiatal hernia with GERD Anxiety and depression Obesity (BMI 30.0-34.9) Type 2 diabetes mellitus Hypertension Surgical History No significant past surgical history Family History Father Diabetes Mother Diabetes Social History Smoking and tobacco/nicotine status: unknown if used tobacco/nicotine Alcohol intake: never Substance/Drug Use: never Adopted: No Caregiver/support person: No Lives independently: Yes Household members: none Marital status: Single Number of children: 0 Highest education level completed: Some College, No Degree Current occupational status: employed 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
--- NOTE | 2024-09-04 08:11 | P.HPUD_ITS ---
Surgery/Procedure H&P Update DATE OF PROCEDURE: September 04, 2024 DATE H&P PERFORMED: 08/30/24 H&P UPDATE INFORMATION: I have reviewed H&P completed within last 30 days, I have examined patient prior to procedure, No changes to prior documentation, H&P is in [facility] EMR on date indicated and Risks and benefits of the procedure reviewed PREOP DIAGNOSIS: Osteomyelitis left foot PLANNED PROCEDURE: Operation Date: 09/04/24 08:25 Proposed Procedures p Incision of Bone Cortex Left Foot(Left) - Nii Pringle DPM
[2024-09-04] MEDS: ceFAZolin 2,000 mg SDV 2000 MG IVP (08:25)
[2024-09-04] MEDS: BUPivacaine 0.5% INJ 30 mL INJECTION (08:32)
--- NOTE | 2024-09-04 09:14 | PM.OP ---
Operative Report Date of procedure: September 04, 2024 Surgeon: Nii Pringle DPM Procedure: Date of procedure: 09/04/2024 Pre-op diagnosis: Osteomyelitis left foot cuboid Post-op diagnosis: Same Post-op findings: Soft cuboid bone left foot with plantar prominence Procedure done: Incision bone cortex left foot CPT 30527 Implants: None Specimens removed: Bone culture left foot aerobic and anaerobic Surgeon: Dr. Nii Pringle DPM Extension Agent: Rhonda Estimated blood loss: 5 cc Tourniquet time: 21 minutes Complications: None Patient is a 49-year-old female that has a history of left foot osteomyelitis and chronic ulceration in the presence of Charcot arthropathy. The patient has had the aforementioned chief complaint for some time. Conservative treatment measures have been attempted and the patient has opted for surgical intervention at this time. A lengthy discussion regarding the procedure, including risks and complications has been had with the patient and is noted in the recent clinic note. Written and verbal consent have been obtained. All patient questions have been answered to the patient?s satisfaction. No written or verbal guarantees have been given or implied. The patient has been NPO since midnight. The history has been reviewed and the history and physical is current. The signed consent was confirmed and placed in the patient chart. Patient imaging has been reviewed and is consistent with the diagnosis. Under mild sedation, the patient was brought into the operating room and placed on the table in the supine position. IV antibiotics were given by the anesthesia team as preoperative surgical prophylaxis. General sedation was then performed by the anesthesiateam. A pneumatic tourniquet was then placed about the left ankle. A local field block was performed using 0.5% Marcaine plain. The operative extremity was then prepped and draped in the usual fashion. The extremity was then elevated and exsanguinated before the tourniquet was inflated to 250 mmHg. After inflation, the following procedure was then performed. Attention was directed to the plantar aspect of the left foot where a full-thickness ulceration was noted plantar aspect of the cuboid. This had positive probe to bone. Elliptical incision was made using a #15 blade to ellipse the wound edges. Dissection was carried down through subcutaneous and superficial fascia to the plantar prominence of cuboid. #15 blade was used to incise periosteum to expose the cortical bone. Combination of rongeur and power rasp was used to remove the plantar prominence. Bone cultures were sent from the operative field to be sent to micro for ID and sensitivity. Plantar planing of plantar prominence was performed. No residual prominence was able to be palpated on the plantar aspect of the foot. The site was then irrigated with copious amounts of sterile saline before attention was directed to closure. 2-0 Prolene was used to reapproximate edges to close the wound in its entirety. Hemostasis was achieved via electrocautery. After closure of the incision site was dressed with Xeroform, Betadine soaked 4 x 4 gauze, dry 4 x 4 gauze, Kerlix, J Carlos bandage. Patient was then placed in a cam boot. The patient tolerated the procedure and anesthesia well and without complication. The patient was transported from the operating room to the recovery room with vital signs stable and vascular status intact to all digits of the left foot. The patient was given both written and verbal instructions to remain nonweightbearing to the operative extremity, to keep dressings/splint clean, dry and intact and to take pain medication as directed. The patient will follow-up in the outpatient setting at their scheduled appointment. The patient was discharged with my personal number and was instructed to call if any questions or issues should arise. They were discharged home once anesthesia criteria was met.
--- NOTE | 2024-09-04 10:20 | ANE.PACU2 ---
Inpatient post-anesthesia follow up: Airway intact: Yes Vital signs: Temperature 97.8 F Pulse Rate 74 Respiratory Rate 18 Blood Pressure 159/88 Pulse Oximetry 98 Oxygen Delivery Me thod Room Air Oxygen Flow Rate Fraction of Inspir ed Oxygen Hydration adequate: Yes Nausea and vomiting: No Pain level: 1 Mental status: Baseline
== END 2024-09-04 10:20 | disposition home or self-care (01) ==
PROVIDERS: Student in an Organized Health Care Education/Training Program; PCP Family Medicine; Visit Provider Podiatrist Foot & Ankle Surgery
PROC: (CPT 28005; principal; 2024-09-04 08:15)
DX: M86.172 Other acute osteomyelitis, left ankle and foot (principal); E11.69 Type 2 diabetes mellitus with other specified complication; G57.93 Unspecified mononeuropathy of bilateral lower limbs; K21.9 Gastro-esophageal reflux disease without esophagitis; I10 Essential (primary) hypertension; Z79.4 Long term (current) use of insulin; E78.5 Hyperlipidemia, unspecified; E66.89 Other obesity not elsewhere classified; Z68.29 Body mass index [BMI] 29.0-29.9, adult; F41.8 Other specified anxiety disorders
CPT/HCPCS: 28005; 36416; 73620; 76000; 81025; 82962; 87070; 87077; 87176; 87186; 87205; J0690; J2250; J2371; J2704; J3010; J3490; J7030; J9999

== ENCOUNTER 2024-09-23 09:49 | Emergency (ER) | payer BC, SELFPAY ==
[2024-09-23 09:50] VITALS: BP 125/88; PULSE 101; RESP 16; TEMP 36.8; O2SAT 97; BMI 30.8
--- NOTE | 2024-09-23 09:57 | XRR_ITS ---
PROCEDURE INFORMATION: Exam: XR Abdomen Exam date and time: 09/23/2024 10:39 AM Age: 49 years old Clinical indication: Nausea and vomiting; Additional info: N/v TECHNIQUE: Imaging protocol: Radiologic exam of the abdomen. Views: Frontal supine view of the abdomen. 1 View. COMPARISON: CT abdomen pelvis w con* [id number] 04/16/2024 1:33 PM FINDINGS: Gastrointestinal tract: Normal. No bowel dilation. Bones/joints: Unremarkable. XR/XR KUB portable [id number] IMPRESSION: No acute findings.
--- NOTE | 2024-09-23 10:00 | W.ED.NAVMDI ---
HPI - Nausea/Vomiting/Diarrhea General: Chief complaint: Nausea/Vomiting/Diarrhea Stated complaint: n/v Time Seen by Provider: 09/23/24 09:51 History of Present Illness: 49-year-old female presents with a week of nausea and vomiting. She reports she is having hard time coming down. Patient reports that she recently had surgery on her foot which they were working on a ulcer that was not healing and has been on antibiotics but unable to keep them down. She denies any abdominal pain. Patient reports that she has had a hard time keeping down her meds due to the nausea vomiting. Associated nausea: Yes Associated symtoms: Reports nausea; Denies chest pain, headache(s) or palpitations Related Data Home Medications ?Medication ?Instructions ?Recorded ?Confirmed acarbose 25 mg tablet 25 mg PO PRN 11/01/23 09/23/24 insulin aspart U-100 100 unit/mL 1 sliding scale dose SUBCUT TID 08/31/24 09/23/24 (3 mL) subcutaneous pen (Novolog FlexPen U-100 Insulin aspart) insulin glargine 100 unit/mL (3 5 unit SUBCUT QAM 08/31/24 09/23/24 mL) subcutaneous pen (Basaglar KwikPen U-100 Insulin) Previous Rx's ?Medication ?Instructions ?Recorded pen needle, diabetic 32 gauge x #360 ea 04/03/2204/22 (BD Ultra-Fine Micro Pen Needle) flash glucose sensor (FreeStyle #4 kits 02/12/23 Adelina 2 Sensor kit) [place] boot #1 ea 05/01/24 amlodipine 10 mg tablet 10 mg PO DAILY #90 tabs 06/15/24 bupropion HCl 300 mg 24 hr tablet, 300 mg PO [facility] mental health #90 06/15/24 extended release tabs escitalopram oxalate 20 mg tablet 20 mg PO DAILY anxiety #90 tabs 06/15/24 metoclopramide HCl 10 mg tablet 10 mg PO BID PRN nausea and 06/15/24 (Reglan) vomiting #60 tabs omeprazole 20 mg capsule,delayed 20 mg PO DAILY #90 caps 06/15/24 release spironolactone 25 mg tablet 25 mg PO DAILY #90 tabs 06/15/24 (Aldactone) blood-glucose sensor (FreeStyle #2 ea 07/19/24 Adelina 3 Plus Sensor device) hydroxyzine HCl 25 mg tablet 25 mg PO Q6H PRN anxiety episodes 08/12/24 #120 tabs Knee Scooter #1 ea 08/30/24 levofloxacin 500 mg tablet 500 mg PO DAILY 10 days #7 tabs 09/12/24 metoclopramide HCl 10 mg tablet 10 mg PO Q6H PRN nausea and 09/23/24 (Reglan) vomiting #20 tabs ondansetron 4 mg disintegrating 4 mg PO Q6H PRN nausea and 09/23/24 tablet vomiting #20 tabs Allergies Allergy/AdvReac Type Severity Reaction Status Date / Time No Known Allergies Allergy Verified 09/12/24 16:20 Review of Systems Const: Denies: body aches ENMT: Reports: throat pain Card: Denies: chest pain or palpitations Resp: Denies: dyspnea or productive cough GI: Reports: nausea and vomiting; Denies: abdominal pain Neuro: Denies: headache(s) PFSH ED PFSH: Medical History Cholelithiasis ESBL (extended spectrum beta-lactamase) producing bacteria infection Hyperlipidemia Hiatal hernia with GERD Anxiety and depression Obesity (BMI 30.0-34.9) Type 2 diabetes mellitus Hypertension Surgical History No significant past surgical history Family History Father Diabetes Mother Diabetes Social History Smoking and tobacco/nicotine status: never used tobacco/nicotine Alcohol intake: never Substance/Drug Use: never Adopted: No Caregiver/support person: No Lives independently: Yes Household members: none Marital status: Single Number of children: 0 Highest education level completed: Some College, No Degree Current occupational status: employed 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 Physical Exam Const: COMMON NORMALS: no acute distress, patient oriented x3 and alert Cardio: COMMON NORMALS: regular rhythm RATE: tachycardic RHYTHM: regular rhythm GI: COMMON NORMALS: Soft to palpation and non-tender PALPATION: Yes Soft to palpation Extremity: NARRATIVE EXTREMITY EXAM: Postop boot/walking boot left lower leg Neuro: COMMON NORMALS: patient oriented x3 and no focal motor deficits SENSORIUM/ORIENTATION: Yes alert Psych: COMMON NORMALS: mental status grossly normal, cooperative and normal affect Course Vital Signs: Vital signs: Vital Signs Temperature 98.2 F 09/23/24 09:50 Pulse Rate 93 09/23/24 11:38 Respiratory Rate 16 09/23/24 09:50 Blood Pressure 193/111 09/23/24 11:38 Pulse Oximetry 93 09/23/24 11:38 Oxygen Delivery Me thod Room Air 09/23/24 11:38 MDM - Nausea/Vomiting/Diarrhea Medical Decision Making Patient's diagnostic studies were ordered and reviewed. Patient did have a minimally elevated white count likely due to reactive from vomiting. She has some mild decreased hemoglobin and chloride likely due to her vomiting.. I did obtain a CT abdomen pelvis due to her repeated nausea and vomiting that shows questionable ovarian cyst but no other acute intra-abdominal pathology. Patient symptoms improved with IV fluid Reglan and Benadryl. Patient to be discharged with Reglan. She is stable and significant proved upon discharge Lab Data 09/23/24 10:24 09/23/24 10:24 Radiology Impressions KUB X-Ray 09/23/24 09:57 IMPRESSION: No acute findings. Abdomen/Pelvis CT 09/23/24 11:14 IMPRESSION: 1. No acute findings. 2. Bilateral ovarian cysts The Laboratory Results WBC 12.97 10^3/uL (3.29-11.43) H 09/23/24 10:24 RBC 5.11 10^6/uL (3.85-5.65) 09/23/24 10:24 Hgb 14.70 g/dL (11.27-16.99) 09/23/24 10:24 Hct 43.0 % (36-47) 09/23/24 10:24 MCV 84.1 fl (85-98) L 09/23/24 10:24 MCH 28.8 pg (27-33) 09/23/24 10:24 MCHC 34.2 g/dL (30-55) 09/23/24 10:24 RDW 12.2 % (12.1-15.1) 09/23/24 10:24 Plt Count 463 10^3/cmm (157-399) H 09/23/24 10:24 MPV 10.9 fL (7.4-10.4) H 09/23/24 10:24 Neut % (Auto) 77.5 % 09/23/24 10:24 Lymph % (Auto) 15.8 % 09/23/24 10:24 [place] % (Auto) 5.8 % 09/23/24 10:24 Eos % (Auto) 0.0 % 09/23/24 10:24 Baso % (Auto) 0.4 % 09/23/24 10:24 Neut # (Auto) 10.06 10^3/uL (1.8-7.7) H 09/23/24 10:24 Lymph # (Auto) 2.1 10^3/uL (0.8-4.8) 09/23/24 10:24 [place] # (Auto) 0.8 10^3/uL (0.2-0.9) 09/23/24 10:24 Eos # (Auto) 0.0 10^3/uL (0.0-0.8) 09/23/24 10:24 Baso # (Auto) 0.1 10^3/uL (0.0-0.1) 09/23/24 10:24 Nucleated RBC % (auto) 0.2 % 09/23/24 10:24 Nucleated RBCs # 0.0 /100WBC 09/23/24 10:24 Sodium 131 mmol/L (136-145) L 09/23/24 10:24 Potassium 3.7 mmol/L (3.5-5.1) 09/23/24 10:24 Chloride 86 mmol/L (98-107) L 09/23/24 10:24 Carbon Dioxide 28 mmol/L (22-29) 09/23/24 10:24 Anion Gap 20.7 (5-19) H 09/23/24 10:24 BUN 17 mg/dL (6-20) 09/23/24 10:24 Creatinine 0.7 mg/dL (0.5-0.9) 09/23/24 10:24 GFR Calculation 89.7 mL/min (90-130) L 09/23/24 10:24 Glucose 137 mg/dL (65-115) H 09/23/24 10:24 Calculated Osmolality 276 mOsm/kg (285-295) L 09/23/24 10:24 Calcium 9.7 mg/dL (8.5-10.5) 09/23/24 10:24 Magnesium 1.8 mg/dL (1.7-2.3) 09/23/24 10:24 Total Bilirubin 0.4 mg/dL (0.15-1.2) 09/23/24 10:24 AST 15 U/L (0-32) 09/23/24 10:24 ALT 10 U/L (0-33) 09/23/24 10:24 Alkaline Phosphatase 79 U/L (35-105) 09/23/24 10:24 Total Protein 7.8 g/dL (6.6-8.7) 09/23/24 10:24 Albumin 4.0 g/dL (3.5-5.2) 09/23/24 10:24 Globulin 3.8 g/dL (1.3-4.6) 09/23/24 10:24 Lipase 63 U/L (13-60) H 09/23/24 10:24 Procalcitonin 0.07 ng/mL (0-0.5) 09/23/24 10:24 All radiology interpretation(s) finalized by discharge Discharge Plan Discharge Patient Disposition: Home Clinical Impression: Gastroenteritis, Nausea and vomiting Condition: Stable Prescriptions: New metoclopramide HCl [Reglan] 10 mg tablet 10 mg PO Q6H PRN (Reason: nausea and vomiting) Qty: 20 0RF ondansetron 4 mg tablet,disintegrating 4 mg PO Q6H PRN (Reason: nausea and vomiting) Qty: 20 0RF No Action (DME) pen needle, diabetic [BD Ultra-Fine Micro Pen Needle] 32 gauge x 1/4 needle See Rx Instructions .Route Qty: 360 3RF Rx Instructions: As directed omeprazole 20 mg capsule,delayed release(DR/EC) 20 mg PO DAILY Qty: 90 0RF amlodipine 10 mg tablet 10 mg PO DAILY Qty: 90 3RF bupropion HCl 300 mg tablet extended release 24 hr 300 mg PO QAM Qty: 90 1RF escitalopram oxalate 20 mg tablet 20 mg PO DAILY Qty: 90 1RF Aldactone 25 mg tablet 25 mg PO DAILY Qty: 90 3RF metoclopramide HCl [Reglan] 10 mg tablet 10 mg PO BID PRN (Reason: nausea and vomiting) Qty: 60 5RF (DME) Knee Scooter See Rx Instructions .Route .MEDSUPPLY Qty: 1 0RF Rx Instructions: As directed by Home (DME) [place] boot See Rx Instructions .Route .MEDSUPPLY Qty: 1 0RF Rx Instructions: As directed to alpha and omega levofloxacin 500 mg tablet 500 mg PO DAILY 10 Days Qty: 7 0RF (DME) FreeStyle Adelina 2 Sensor Kit See Rx Instructions .ROUTE .COMPLEX Qty: 4 0RF Dose Instruction: CHANGE every 14 DAYS Rx Instructions: CHANGE every 14 DAYS (DME) FreeStyle Adelina 3 Plus Sensor Device See Rx Instructions .ROUTE .COMPLEX Qty: 2 3RF Dose Instruction: USE DIRECTED Rx Instructions: USE DIRECTED hydroxyzine HCl 25 mg tablet 25 mg PO Q6H PRN (Reason: anxiety episodes) Qty: 120 1RF acarbose 25 mg tablet 25 mg PO PRN insulin aspart U-100 [Novolog FlexPen U-100 Insulin] 100 unit/mL (3 mL) insulin pen 1 sliding scale dose SUBCUT TID Rx Instructions: inject SUBCUTANEOUSLY THREE TIMES DAILY AFTER MEALS based ON sliding scale insulin glargine [Basaglar KwikPen U-100 Insulin] 100 unit/mL (3 mL) insulin pen 5 unit SUBCUT QAM Discharge Orders: Discharge ED (Routine); Ordered 09/23/24 Ordered By: Eric Andrade Referrals: Mary Ann Rodriguez MD [Primary Care Provider, [facility]] Discharge Diet: Advance as tolerated and Clear Liquid Discharge Activity: Increase activity as tolerated Patient Instructions: Clear Liquid Diet (ED), Gastroenteritis (ED), Acute Nausea and Vomiting (DC), Opioid Safety, Pain Management Activity Restrictions/Additional Instructions: Clear liquid diet for 24 to 36 hours and advance diet as tolerated. Please follow your primary care provider Wednesday or Wednesday if symptoms are not starting improve at that time. Print Language: Welsh Coding Level of Care Code ED Jig Borer for Luisito Colmenares
[2024-09-23 10:32] LABS: Basophils # 0.1 10^3/uL (0.0-0.1); Basophils % 0.4 %; Lymphocytes # 2.1 10^3/uL (0.8-4.8); Lymphocytes % 15.8 %; Mean Corpuscular HGB Conc 34.2 g/dL (30-55); Mean Corpuscular Hemoglobin 28.8 pg (27-33); Mean Corpuscular Volume 84.1 fl (85-98); Mean Platelet Volume 10.9 fL (7.4-10.4); Monocytes # 0.8 10^3/uL (0.2-0.9); Monocytes % 5.8 %; Neutrophils # 10.06 10^3/uL (1.8-7.7); Neutrophils % 77.5 %; Nucleated Red Blood Cells % 0.2 %; Platelet Count 463 10^3/cmm (157-399); Red Blood Count 5.11 10^6/uL (3.85-5.65); Red Cell Distribution Width 12.2 % (12.1-15.1); White Blood Count 12.97 10^3/uL (3.29-11.43)
[2024-09-23] MEDS: sodium chloride 0.9% 1,000 ML 999 ML IV ×2 (10:41→12:30)
[2024-09-23] MEDS: ondansetron 2 mg/ML SDV 2 mL 4 MG IVP (10:41)
[2024-09-23 10:52] LABS: Alanine Aminotransferase 10 U/L (0-33); Alkaline Phosphatase 79 U/L (35-105); Anion Gap 20.7 (5-19); Aspartate Amino Transferase 15 U/L (0-32); Blood Urea Nitrogen 17 mg/dL (6-20); Calcium 9.7 mg/dL (8.5-10.5); Carbon Dioxide 28 mmol/L (22-29); Chloride 86 mmol/L (98-107); Creatinine Clr Calc Pharmacy 98.8282; Globulin 3.8 g/dL (1.3-4.6); Glomerular Filtration Rate 89.7 mL/min (90-130); Glucose 137 mg/dL (65-115); Lipase 63 U/L (13-60); Magnesium 1.8 mg/dL (1.7-2.3); Osmolality Calculated 276 mOsm/kg (285-295); Potassium 3.7 mmol/L (3.5-5.1); Sodium 131 mmol/L (136-145); Total Bilirubin 0.4 mg/dL (0.15-1.2); Total Protein 7.8 g/dL (6.6-8.7)
[2024-09-23 10:59] LABS: Procalcitonin 0.07 ng/mL (0-0.5)
--- NOTE | 2024-09-23 11:14 | CTR_ITS ---
PROCEDURE INFORMATION: Exam: CT Abdomen And Pelvis With Contrast Exam date and time: 09/23/2024 11:47 AM Age: 49 years old Clinical indication: Nausea and vomiting; Abdominal pain; Generalized; Additional info: Abd pain, n/v TECHNIQUE: Imaging protocol: Computed tomography of the abdomen and pelvis with contrast. Radiation optimization: All CT scans at this facility use at least one of these dose optimization techniques: automated exposure control; mA and/or kV adjustment per patient size (includes targeted exams where dose is matched to clinical indication); or iterative reconstruction. Contrast material: OMNIPAQUE 350; Contrast volume: 100 ml; Contrast route: INTRAVENOUS (IV); COMPARISON: CT abdomen pelvis w con* [id number] 04/16/2024 1:33 PM RADIATION DOSE METRICS: Total DLP (mGy-cm): 651.19 FINDINGS: Liver: Normal. No mass. Gallbladder and biliary ducts: Normal. No calcified stones. No ductal dilation. Pancreas: Normal. No ductal dilation. Spleen: Normal. No splenomegaly. Adrenal glands: Normal. No mass. Kidneys and ureters: Caliceal stone 2.2 mm right kidney No hydronephrosis. Stomach and bowel: Unremarkable. No obstruction. No mucosal thickening. Appendix: No evidence of appendicitis. Intraperitoneal space: Unremarkable. No free air. No significant fluid collection. Vasculature: Unremarkable. No abdominal aortic aneurysm. Lymph nodes: Unremarkable. No enlarged lymph nodes. Urinary bladder: Unremarkable as visualized. Reproductive: There is 2 circumscribed cystic lesions in the pelvis left side 30 mm x 36 mm, right side 21 mm x 48 mm. These findings likely reflect the ovarian cyst and were present on prior examination. Bones/joints: Unremarkable. No acute fracture. Soft tissues: Unremarkable. CT/CT abdomen pelvis w con* [id number] IMPRESSION: 1. No acute findings. 2. Bilateral ovarian cysts The
[2024-09-23] MEDS: metoclopramide 5 mg/mL SDV 2 mL 10 MG IVP (11:27)
[2024-09-23] MEDS: diphenhydrAMINE 50 mg/mL SDV 1mL 25 MG IVP (11:27)
[2024-09-23 11:38] VITALS: BP 193/111; PULSE 93; O2SAT 93
[2024-09-23] MEDS: iohexol 350 mg/mL 500 mL Btl (per mL) IV (11:51)
[2024-09-23 13:24] VITALS: BP 114/67; PULSE 97; RESP 14; O2SAT 97
[2024-09-23 13:30] VITALS: BP 114/67; PULSE 91; O2SAT 98
== END 2024-09-23 13:34 | disposition home or self-care (01) ==
PROVIDERS: Emergency Provider Student in an Organized Health Care Education/Training Program; PCP Family Medicine
DX: K52.9 Noninfective gastroenteritis and colitis, unspecified (principal); R11.2 Nausea with vomiting, unspecified; Z79.4 Long term (current) use of insulin; E78.5 Hyperlipidemia, unspecified; E11.9 Type 2 diabetes mellitus without complications; I10 Essential (primary) hypertension
CPT/HCPCS: 36415; 74018; 74177; 80053; 83690; 83735; 84145; 85025; 96374; 96375; 99285; J1200; J2405; J2765; J7030

== ENCOUNTER → 2024-12-06 08:35 | Outpatient (BNVA) | payer BC, SELFPAY | PROVIDERS: PCP Family Medicine; Visit Provider Podiatrist Foot & Ankle Surgery | DX: L97.522 Non-pressure chronic ulcer of other part of left foot with fat layer exposed (principal); L03.116 Cellulitis of left lower limb; E11.610 Type 2 diabetes mellitus with diabetic neuropathic arthropathy; M86.172 Other acute osteomyelitis, left ankle and foot; Z98.890 Other specified postprocedural states; Z79.4 Long term (current) use of insulin | CPT/HCPCS: 73630 ==

== ENCOUNTER → 2025-02-05 08:40 | Outpatient (BNVA) | payer BC, SELFPAY | PROVIDERS: PCP Family Medicine; Visit Provider Thoracic Surgery (Cardiothoracic Vascular Surgery) | DX: E13.610 Other specified diabetes mellitus with diabetic neuropathic arthropathy (principal); E13.621 Other specified diabetes mellitus with foot ulcer | CPT/HCPCS: 87070; 87077; 87176; 87186; 87205 ==

== ENCOUNTER → 2025-03-05 12:48 | Outpatient (BNVA) | payer BC, SELFPAY | PROVIDERS: PCP Family Medicine; Visit Provider Thoracic Surgery (Cardiothoracic Vascular Surgery) | DX: E11.621 Type 2 diabetes mellitus with foot ulcer (principal) | CPT/HCPCS: 87070; 87077; 87176; 87186; 87205 ==